=== PATIENT | male | born 1995 | race Caucasian/White ===

== ENCOUNTER 2017-07-07 21:58 | Emergency (ER) | payer MEDICAID, SELFPAY | END 2017-07-07 23:55 | disposition home or self-care (01) | PROVIDERS: Emergency Provider Emergency Medicine; Visit Provider Emergency Medicine | DX: K52.9 Noninfective gastroenteritis and colitis, unspecified (principal) | CPT/HCPCS: 74176; 80053; 82150; 83690; 85025; 87275; 87276; 96361; 96365; 96375; 99284; J2405 ==

== ENCOUNTER 2017-08-01 18:09 | Emergency (ER) | payer MEDICAID, SELFPAY ==
[2017-08-01 19:19] VITALS: BP 123/67; PULSE 72; RESP 20; TEMP 36.6; O2SAT 96; BMI 45.5
[2017-08-01 19:31] LABS: UTC Influenza A Antigen Negative (Negative); UTC Influenza B Antigen Negative (Negative)
--- NOTE | 2017-08-01 20:02 | HMH.EDUTC ---
[facility] [place] Clinical Impression: Influenza-like illness Disposition: Home, Self-Care Condition on Discharge: Good Instructions: DI for Influenza -- Adult Additional Instructions: * No sign of bacterial infection. Likely viral. Virus can take 7-14 days to run their course. This sounds like the flu but could be any number of upper respiratory viruses. False negative flu tests are possible. * You report you are an otherwise healthy individual. * Monitor Temp. Tylenol every 4 hours as needed no more then 5 times a day or 4000mg in 24 hours and/or ibuprofen every 6 hours as needed no more then 3200mg in 24 hours (as long as your primary care doctor has told you that it is ok to take both) for fever/aches/pain. ER if fever no less than 101 despite tylenol and ibuprofen * Encourage fluids, water, gatorade, powerade, pedialyte if /toddler/child * LOTS of rest * warm salt water gargles * warm fluids * sleep elevated * humidifier/vaporizer * You (or your child) are contagious until no fever, aches, chills x 24 hours without medication for symptoms * OTC cold/flu/sinus medication is ok but pick one. Do not take multiple different ones as they have similar ingredients and you can overdose on cold medication. IMMEDIATELY for new or worsening symptoms, improvement followed by suddenly feeling worse OR no noticeable improvement over the next 48-72 hours. 911 for difficulty breathing Forms: Work/School Release Time of Disposition: 20:21 Medical Decision Making Vital Signs: 08/01/17 19:19 Temperature 98 F Temperature Source Oral Pulse Rate [Right Brachial] 72 Respiratory Rate 20 Blood Pressure [Right Arm] 123/67 Blood Pressure Mean [Right Arm] 85 Blood Pressure Position [Right Arm] Sitting 02 Sat by Pulse Oximetry 96 Oxygen Delivery Method Room Air - Lab Data Lab results reviewed: Yes: I reviewed the patient's lab results. Lab Results 08/01/17 18:41: Influenza Type A Ag Negative, Influenza Type B Ag Negative - Benny Inquiry Pt receiving controlled substance: No [facility] [place] - General Stated complaint: sneezing, chills, cough Time Seen by Provider: 08/01/17 20:02 Mode of Arrival: Ambulatory Source of Information: Patient Limitations: No Limitations Description of Symptoms (Recalled from Triage Doc. by RN): C/O FLU-LIKE SYMPTOMS HEENT Symptoms (Recalled from RN notes): Yes (RUNNY NOSE) Resp Symptoms (Recalled from RN notes): Yes (COUGH, CONGESTION) Skin Symptoms (Recalled from RN notes): No MS Symptoms (Recalled from RN notes): Yes (BODYACHES) Functional Status (Recalled from RN notes): N/A - History of Present Illness Provider Complaint: c/o feeling feverish, bodyaches, chills, mild cough, sneezing. Started mild yesterday but worse today. Denies sore throat. being seen with same symptoms, negative flu. Daughter recently sick and mother in law too. Not sure of their diagnoses. Has not had flu vaccine. OTC sinus medication hasn't helped. - Related Data Allergies Allergy/AdvReac Type Severity Reaction Status Date / Time No Known Allergies Allergy Unverified 07/07/17 14:58 - Worker's Comp Is this a Worker's Comp case?: No [facility] History I have reviewed the patient's past medical history: Yes (denies PMHx) Medical History: Denies:: Cancer, Diabetes Mellitus Type 1, Diabetes Mellitus Type 2, Hypertension, MRSA Other Surgeries: Yes: No Previous Surgery Amputation: No Fractures: No - *Social History Smoking Status: Never smoker Alcohol Intake: never - Psychiatric History Expresses thoughts of harming self/others: None Suicide Plan Description: No Plan ROS Obtained: Yes Systems reviewed as appropriate & no additional complaints - Constitutional Constitutional: Reports body ache, Reports chills, Reports fatigue, Reports poor appetite (drinking well) - Eyes Eyes: Denies eye discharge, Denies eye pain - ENT Ears, Nose, Mouth, and Throat: Denies otalgia, Reports nasal congestion, R
[2017-08-01 21:02] VITALS: BP 123/67; PULSE 72; RESP 20; TEMP 36.6; O2SAT 96
== END 2017-08-01 21:03 | disposition home or self-care (01) ==
PROVIDERS: Emergency Provider Nurse Practitioner Family; Family Provider Internal Medicine Adolescent Medicine
DX: J10.1 Influenza due to other identified influenza virus with other respiratory manifestations (principal)
CPT/HCPCS: 87804; 99202

== ENCOUNTER 2017-08-05 18:13 | Emergency (ER) | payer MEDICAID, SELFPAY ==
[2017-08-05 19:41] VITALS: BP 142/80; PULSE 78; RESP 20; TEMP 36.6; O2SAT 100; BMI 44.9
[2017-08-05 19:48] LABS: UTC Influenza A Antigen Negative (Negative); UTC Influenza B Antigen Negative (Negative)
--- NOTE | 2017-08-05 20:21 | HMH.EDUTC ---
[facility] – [place] Disposition Clinical Impression: Influenza-like illness Disposition: Home, Self-Care Condition on Discharge: Good Instructions: DI for Influenza -- Adult Additional Instructions: * Expected flu symptoms and progression. now that your daughter has tested positive, confirms you likely have the flu as well * Continue lots of fluids * Continue to rest * Continue Theraflu since it helps * Seek treatment for ANY new or worsening symptoms or no noticeable improvements starting over the next 48-72 hours. * you are still contagious. No work. Referrals: Miguel Arguelles MD [Primary Care Provider] - (Immediately for new or worsening symptoms or better then suddenly worse again. Also follow up if no noticeable improvement over the next 48-72 hours. ) Forms: Work/School Release Time of Disposition: 20:35 Medical Decision Making Vital Signs: 08/05/17 19:41 Temperature 98 F Temperature Source Temporal Artery Scan Pulse Rate [Brachial] 78 Respiratory Rate 20 Blood Pressure [Right Arm] 142/80 Blood Pressure Mean [Right Arm] 100 Blood Pressure Source [Right Arm] Automatic Cuff Blood Pressure Position [Right Arm] Sitting 02 Sat by Pulse Oximetry 100 Oxygen Delivery Method Room Air - Lab Data Lab results reviewed: Yes: I reviewed the patient's lab results. Lab Results 08/05/17 19:37: Influenza Type A Ag Negative, Influenza Type B Ag Negative - Benny Inquiry Pt receiving controlled substance: No [facility] [place] HPI - General Stated complaint: Flu Time Seen by Provider: 08/05/17 20:21 Mode of Arrival: Ambulatory Source of Information: Patient Limitations: No Limitations Description of Symptoms (Recalled from Triage Doc. by RN): SEEN SAT WAS DX - FOR FLU. STILL FEELS BAD HEENT Symptoms (Recalled from RN notes): Yes Resp Symptoms (Recalled from RN notes): No Skin Symptoms (Recalled from RN notes): No MS Symptoms (Recalled from RN notes): No Functional Status (Recalled from RN notes): NA - History of Present Illness Provider Complaint: c/o persistant flu symptoms. No worse but doesn't feel better. Needing longer work excuse because not ready to return today. Seen on Sat for FLI that started that same day. Flu neg. DX FLI. Daughter has since tested positive for flu yesterday. Rhinorrhea resolved but still fatigue, cough, bodyaches, chills. Theraflu helping symptoms. [place] feverish today but didn't check temp. already feeling better. - Related Data Home Medications Medication Instructions Recorded Confirmed No Known Home Medications [No 08/05/17 08/05/17 Known Home Medications] Allergies Allergy/AdvReac Type Severity Reaction Status Date / Time No Known Allergies Allergy Verified 08/05/17 18:58 - Worker's Comp Is this a Worker's Comp case?: No [facility] History I have reviewed the patient's past medical history: Yes (denies PMHx) Medical History: Denies:: Cancer, Diabetes Mellitus Type 1, Diabetes Mellitus Type 2, Hypertension, MRSA Other Surgeries: Yes: No Previous Surgery Amputation: Yes Fractures: No - *Social History Smoking Status: Never smoker Alcohol Intake: never - Psychiatric History Expresses thoughts of harming self/others: None Suicide Plan Description: No Plan ROS Obtained: Yes Systems reviewed as appropriate & no additional complaints - Constitutional Constitutional: Reports as per HPI, Denies anorexia, Reports fatigue, Denies poor appetite, Reports other (eating and drinking well) - Eyes Eyes: Denies change in vision, Denies eye discharge, Denies eye pain - ENT Ears, Nose, Mouth, and Throat: Denies difficulty swallowing, Denies otalgia, Denies nasal congestion, Denies nasal discharge, Denies sore throat, Denies throat swelling - Cardiovascular Cardiovascular: Denies chest pain, Denies irregular heart rhythm - Respiratory Respiratory: No chest congestion, Yes non-productive cough, No dyspnea, No wheezing - Gastrointestinal Gastrointestingal: Denies: diarrhea,
== END 2017-08-05 20:45 | disposition home or self-care (01) ==
PROVIDERS: Emergency Provider Nurse Practitioner Family; Family Provider Internal Medicine Adolescent Medicine; PCP Internal Medicine Adolescent Medicine
DX: J10.1 Influenza due to other identified influenza virus with other respiratory manifestations (principal); Z20.828 Contact with and (suspected) exposure to other viral communicable diseases
CPT/HCPCS: 87804; 99202

== ENCOUNTER → 2018-01-01 09:48 | Outpatient (CLI) | payer MEDICAID, SELFPAY ==
[2018-01-01 14:06] LABS: Alanine Aminotransferase 42 U/L (12-78); Alkaline Phosphatase 123 U/L (46-116); Anion Gap 14.5 mEq/L (5-15); Aspartate Amino Transferase 22 U/L (15-37); Bilirubin,Total 0.8 mg/dL (0.2-1.0); Blood Urea Nitrogen 18 mg/dL (7-18); Calcium 9.7 mg/dL (8.5-10.1); Carbon Dioxide 28 mmol/L (21.0-32.0); Chloride 104 mmol/L (98-107); Chol/HDL Ratio 4.6 (1-3.5); Cholesterol 180 mg/dL (140-200); Creatinine,Serum 0.87 mg/dL (0.70-1.30); Estimated Glomerular Filt Rate 110 ml/min (>60); Free T4 (Free Thyroxine) 1.11 ng/dl (0.76-1.46); GFR (African American) 133 ML/MIN (>60); Glucose 86 mg/dL (74-106); HDL Cholesterol 39 mg/dL (27-67); LDL Cholesterol 129 mg/dL (0-130); Potassium 4.5 mmoL/L (3.5-5.1); Sodium 142 mmol/L (136-145); Thyroid Stimulating Hormone 1.75 uIU/ml (0.358-3.740); Triglycerides 58 mg/dL (30-200); VLDL Cholesterol 12 mg/dL (0-40)
[2018-01-01 14:33] LABS: Basophils # 0.1 K/mm3 (0-0.2); Basophils % 0.5 % (0.1-2.0); Eosinophils # 0.1 K/mm3 (0.0-0.4); Eosinophils % 0.6 % (0.1-12.0); Hematocrit 54.6 % (42.0-52.0); Lymphocytes # 2.3 K/mm3 (0.7-4.5); Lymphocytes % 23.6 K/mm3 (10-50); Mean Corpuscular HGB Conc 31.2 g/dL (31.8-35.4); Mean Corpuscular Hemoglobin 29.3 pg (27.0-31.2); Mean Corpuscular Volume 94.1 fl (80-94); Mean Platelet Volume 8.7 fl (7.4-10.4); Monocytes # 0.4 K/mm3 (0.1-1.0); Monocytes % 4.4 % (1.7-9.3); Neutrophils % 70.9 % (37.0-80.0); Platelet Count 301 K/mm3 (142-424); Red Cell Distribution Width 13.5 % (11.5-17.5); White Blood Count 9.9 K/mm3 (4.8-10.8)
[2018-01-01 14:59] LABS: Hemoglobin A1C 5.4 % (0.0-7.0)
[2018-01-02 17:00] LABS: HSV 1 IgG, Type Spec 1.27 index (0.00-0.90); HSV 2 IgG, Type Spec <0.91 index (0.00-0.90); Vitamin D 25 Hydroxy 31.6 ng/mL (30.0-100.0)
== END ==
PROVIDERS: Visit Provider Nurse Practitioner Family
DX: R53.83 Other fatigue (principal); Z79.899 Other long term (current) drug therapy
CPT/HCPCS: 80053; 80061; 82652; 83036; 84439; 84443; 85025; 86695; 86790

== ENCOUNTER → 2018-06-23 10:02 | Outpatient (CLI) | payer OTHER, MEDICAID, SELFPAY ==
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
== END ==
PROVIDERS: PCP Nurse Practitioner Family; Visit Provider Orthopaedic Surgery
DX: M25.561 Pain in right knee (principal)
CPT/HCPCS: 73721

== ENCOUNTER → 2018-07-21 12:19 | Outpatient (CLI) | payer MEDICAID, SELFPAY ==
[2018-07-21 12:53] LABS: Basophils # 0.1 K/mm3 (0-0.2); Eosinophils # 0.1 K/mm3 (0.0-0.4); Eosinophils % 1.1 % (0.1-12.0); Hematocrit 45.8 % (42.0-52.0); Hemoglobin 14.6 g/dL (14.1-18.0); Lymphocytes # 2.4 K/mm3 (0.7-4.5); Lymphocytes % 29.4 % (10-50); Mean Corpuscular HGB Conc 31.9 g/dL (31.8-35.4); Mean Corpuscular Hemoglobin 30.3 pg (27.0-31.2); Mean Corpuscular Volume 95.1 fl (80-94); Mean Platelet Volume 7.4 fl (7.4-10.4); Monocytes # 0.4 K/mm3 (0.1-1.0); Monocytes % 4.9 % (1.7-9.3); Neutrophils # 5.1 K/mm3 (1.8-7.8); Neutrophils % 63.6 % (37.0-80.0); Platelet Count 296 K/mm3 (142-424); Red Blood Count 4.82 M/mm3 (4.60-6.20); White Blood Count 8.1 K/mm3 (4.8-10.8)
[2018-07-21 12:56] LABS: INR 0.97 (0.9-1.1)
[2018-07-21 14:29] LABS: Anion Gap 13.4 mEq/L (5-15); Blood Urea Nitrogen 16 mg/dL (7-18); Calcium 8.7 mg/dL (8.5-10.1); Carbon Dioxide 30 mmol/L (21.0-32.0); Chloride 103 mmol/L (98-107); Creatinine,Serum 0.91 mg/dL (0.70-1.30); Estimated Glomerular Filt Rate 103 ml/min (>60); GFR (African American) 125 ML/MIN (>60); Glucose 93 mg/dL (74-106); Potassium 4.4 mmoL/L (3.5-5.1); Sodium 142 mmol/L (136-145)
== END ==
PROVIDERS: Visit Provider Orthopaedic Surgery
DX: Z01.818 Encounter for other preprocedural examination (principal); S83.271A Complex tear of lateral meniscus, current injury, right knee, initial encounter
CPT/HCPCS: 36415; 80048; 85025; 85610

== ENCOUNTER 2018-07-23 10:30 | Outpatient (RCR) | payer MEDICAID, OTHER, SELFPAY ==
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
== END 2018-07-23 10:35 | disposition home or self-care (01) ==
LOC: PT 10:30
PROVIDERS: Visit Provider Nurse Practitioner Family
DX: M54.6 Pain in thoracic spine (principal)
CPT/HCPCS: 97010; 97014; 97110; 97140; 97163; G0283

== ENCOUNTER → 2018-07-30 13:42 | Outpatient (CLI) | payer MEDICAID, SELFPAY | PROVIDERS: Visit Provider Nurse Practitioner Family | DX: R36.9 Urethral discharge, unspecified (principal) | CPT/HCPCS: 87086 ==

== ENCOUNTER 2018-09-09 15:30 | Outpatient (RCR) | payer MEDICAID, SELFPAY ==
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
== END 2018-09-09 15:35 | disposition home or self-care (01) ==
LOC: PT 15:30
PROVIDERS: Visit Provider Orthopaedic Surgery
DX: S83.271D Complex tear of lateral meniscus, current injury, right knee, subsequent encounter (principal)
CPT/HCPCS: 97010; 97014; 97016; 97110; 97163; G0283

== ENCOUNTER → 2018-11-18 12:29 | Outpatient (CLI) | payer MEDICAID, SELFPAY | PROVIDERS: PCP Nurse Practitioner Family; Visit Provider Internal Medicine Cardiovascular Disease | DX: R06.02 Shortness of breath (principal); R42 Dizziness and giddiness; R94.31 Abnormal electrocardiogram [ECG] [EKG] | CPT/HCPCS: 93225 ==

== ENCOUNTER → 2018-11-22 13:44 | Outpatient (CLI) | payer MEDICAID, SELFPAY ==
--- NOTE | 2018-11-22 13:45 | CA_ITS ---
PROCEDURE: 2-D M-mode and color Doppler study INDICATIONS FOR THE TEST: Chest pain COPD Heart Murmur Tobacco Smoking Palpitations Fatigue+ Syncope Edema Hypertension Diabetes Mellitus Rheumatic Fever SOB QUAN+Obesity Hyperlipidemia Family History HD Additional History GERD PATIENT INFORMATION HEIGHT: 72 WEIGHT:347 GENDER: Male B/P:120/80 2-D/M-MODE INTERPRETATION: 2-D MEASUREMENTS OBSERVED VALUES IN CMS Right Ventricular Dimension (RVDd) 2.7 Interventricular Septum (Thickness)(IVsd) 1.1 Left Ventricular Internal Dimensions(LVIDd) 5.4 Left Ventricular Posterior Wall (Thickness)(LVPWd) 1.1 Aortic Root 3.0 Aortic Cusp Separation Left Atrial Dimensions (LAD) 4.0 2D 1. Left atrium is upper limit of the normal size, left ventricle is normal size, left ventricle wall thickness is upper limit of the normal, visually estimated ejection fraction 55% with no regional wall motion abnormality. 2. The right atrium and right ventricle are mildly enlarged with normal contractility. 3. The aortic, mitral and tricuspid valvular grossly normal. 4. The pulmonic valve is poorly visualized. 5. No significant pericardial effusion noted. DOPPLER INTERROGATION: Doppler interrogation of the aortic, mitral and tricuspid valvular presence of mild mitral and tricuspid regurgitation, tricuspid regurgitation jet velocity is inadequate for calculation of the right ventricular systolic pressure, diastolic parameters are within normal range. CONCLUSION: 1. Normal left ventricular size, preserved left ventricular systolic function, visually estimated ejection fraction 55% with no regional wall motion abnormality. Diastolic parameters are within normal range. 2. Mildly enlarged right-sided chambers, contractility of the right ventricle is normal. 3. Mild mitral and tricuspid regurgitation 4. No significant pericardial effusion noted.
== END ==
PROVIDERS: PCP Nurse Practitioner Family; Visit Provider Internal Medicine Cardiovascular Disease
DX: R06.02 Shortness of breath (principal); R42 Dizziness and giddiness; R94.31 Abnormal electrocardiogram [ECG] [EKG]
CPT/HCPCS: 93306

== ENCOUNTER → 2018-11-30 18:57 | Outpatient (CLI) | payer MEDICAID, SELFPAY | PROVIDERS: PCP Nurse Practitioner Family; Visit Provider Internal Medicine Cardiovascular Disease | DX: R42 Dizziness and giddiness (principal); R06.02 Shortness of breath; R94.31 Abnormal electrocardiogram [ECG] [EKG] | CPT/HCPCS: 95806 ==

== ENCOUNTER → 2018-12-02 11:06 | Outpatient (CLI) | payer MEDICAID, SELFPAY ==
[2018-12-02 12:46] LABS: Blood Urea Nitrogen 9 mg/dL (7-18); Calcium 8.4 mg/dL (8.5-10.1); Carbon Dioxide 29 mmol/L (21.0-32.0); Chloride 105 mmol/L (98-107); Creatinine,Serum 0.85 mg/dL (0.70-1.30); Estimated Glomerular Filt Rate 112 ml/min (>60); GFR (African American) 135 ML/MIN (>60); Glucose 86 mg/dL (74-106); Sodium 142 mmol/L (136-145)
== END ==
PROVIDERS: Visit Provider Internal Medicine Cardiovascular Disease
DX: R06.02 Shortness of breath (principal); R42 Dizziness and giddiness
CPT/HCPCS: 36415; 80048

== ENCOUNTER 2018-12-18 23:59 | Emergency (ER) | payer MEDICAID, SELFPAY ==
[2018-12-19] VITALS: BP 128/62; PULSE 98; RESP 20; TEMP 37.1; O2SAT 98; BMI 46.7
--- NOTE | 2018-12-19 00:10 | CT_ITS ---
CT abdomen pelvis wo con CLINICAL INDICATION: Left flank pain with nausea ITS.REASON: pain ORDERING PHYSICIAN: Herson Munoz MD PATIENT AGE: 23 years COMPARISON: 07/07/2017 TECHNIQUE: Axial images obtained with sagittal and coronal reformats. All CT scans at the facility use one or more dose reduction, viz: automated exposure control, ma/kV adjustment per patient size (including targeted exams where dose is matched to indication, i.e. head), or iterative reconstruction technique. PROCEDURE: Oral Contrast: None IV Contrast: None . FINDINGS: Lower thorax: No acute finding The liver, gallbladder, spleen, adrenal glands, pancreas, and kidneys have an unremarkable unenhanced appearance. No evidence of appendicitis or diverticulitis. No intestinal obstruction or free air. There is mild amount of retained colonic feces. There is mild gastric distention with ingested material. No acute bony anomalies. IMPRESSION: No acute abdominal or pelvic findings
--- NOTE | 2018-12-19 00:15 | HMH.EDGENADL ---
ED Disposition Clinical Impression: Acute thoracic myofascial strain Disposition: Home, Self-Care Condition on Discharge: Good Instructions: DI for Acute Pain -- Adult, Thoracic Back Pain Prescriptions: predniSONE [Prednisone 50mg Tab] 50 mg PO DAILY 5 Days #5 tab Tizanidine HCl 4 mg PO TID 4 Days #12 cap Referrals: Justine Cary APRN [Primary Care Provider] - Time of Disposition: 01:58 - Critical Care Critical Care Time: No Attestation: On 12/18/18, the high probability of a clinically significant, sudden or life threatening deterioration of the following system(s) required my full and direct attention, intervention and personal management. The time I documented below is in addition to time spent performing reported procedures but includes the following listed in this critical care notation. Medical Decision Making - Medical Records Medical records reviewed: Yes: I reviewed the patient's medical records. - Benny Inquiry Pt receiving controlled substance: No Benny was queried for this patient: No Vital Signs: 12/19/18 00:00 Temperature 98.7 F Temperature Source Oral Pulse Rate [Right Brachial] 98 H Respiratory Rate 20 Blood Pressure [Right Arm] 128/62 Blood Pressure Mean [Right Arm] 84 Blood Pressure Source [Right Arm] Automatic Cuff Blood Pressure Position [Right Arm] Sitting 02 Sat by Pulse Oximetry 98 Oxygen Delivery Method Room Air - Lab Data Lab results reviewed: Yes: I reviewed the patient's lab results. Lab Results 12/19/18 00:04: Urine Color Dk yellow, Urine Appearance Sl cloudy, Urine pH 6.0, Ur Specific [place] >= 1.030, Urine Protein 1+, Urine Glucose (UA) Negative, Urine Ketones Trace, Urine Blood Negative, Urine Nitrate Negative, Urine Bilirubin 1+ A, Urine Urobilinogen 1.0, Ur Leukocyte Esterase Negative, Urine WBC 10-20, Amorphous Sediment 2+, Urine Mucus 4+ 12/19/18 00:20: WBC 14.9 H, RBC 4.88, Hgb 15.3, Hct 44.3, MCV 90.8, MCH 31.2, MCHC 34.4, RDW 13.3, Plt Count 324, MPV 7.2 L, Neut % (Auto) 74.1, Lymph % (Auto) 20.8, [place] % (Auto) 4.1, Eos % (Auto) 0.4, Baso % (Auto) 0.7, Neut # (Auto) 11.1 H, Lymph # (Auto) 3.1, [place] # (Auto) 0.6, Eos # (Auto) 0.1, Baso # (Auto) 0.1 12/19/18 00:20: Sodium 142, Potassium 3.6, Chloride 103, Carbon Dioxide 26, Anion Gap 16.6 H, BUN 15, Creatinine 1.24, Estimated Creat Clear 102, Estimated GFR 72, Est GFR ( Amer) 87, Glucose 80, Calcium 9.0, Total Bilirubin 1.0, AST 19, ALT 37, Alkaline Phosphatase 117 H, Total Protein 7.6, Albumin 3.8, Globulin 3.8 H, Albumin/Globulin Ratio 1.0 L, Amylase 39, Lipase 137 Result diagrams: 12/19/18 00:20 12/19/18 00:20 Orders (Tests/Meds): ED MEDICATIONS Generic Name Dose Route Start Last Admin Trade Name Freq PRN Reason Stop Dose Admin Sodium Chloride 1,000 mls @ 999 mls/hr 12/19/18 00:15 12/19/18 00:16 Sod Chlor 0.9% 1000ml Bag IV 12/19/18 01:15 999 mls/hr .[id number] DANIELA Administration Discontinued Medications Generic Name Dose Route Start Last Admin Trade Name Freq PRN Reason Stop Dose Admin Ketorolac Tromethamine 30 mg 12/19/18 00:10 12/19/18 00:16 Toradol 30mg/Ml Vial IV 12/19/18 00:11 30 mg ONCE ONE Administration Ondansetron HCl 4 mg 12/19/18 00:10 12/19/18 00:16 Zofran 4mg/2ml Vial IV 12/19/18 00:11 4 mg ONCE ONE Administration ORDERS Category Date Time Status CT abdomen pelvis wo con Stat Cat Scan 12/19/18 00:10 Taken Urine Culture Stat Micro 12/19/18 00:04 Received General Adult HPI - General Chief complaint: PAIN Stated complaint: Pain in lower back left side Time Seen by Provider: 12/19/18 00:15 Mode of Arrival: Ambulatory Source of Information: Patient Limitations: No Limitations Description of Symptoms (Recalled from ER Triage Doc. by RN): PT c/o flank pain that started about 8pm tonight. No other symptoms reported at this time. - Related Data Home Medications Medication Instructions Recorded Confirmed raNITIdine HCl [Raniti
[2018-12-19 00:18] LABS: Microscopic, Urine URINE MICROSCOPIC (MICROSCOPIC)
--- NOTE | 2018-12-19 00:19 | ED_ITS ---
ED Disposition Clinical Impression: Acute thoracic myofascial strain Disposition: Home, Self-Care Condition on Discharge: Good Instructions: DI for Acute Pain -- Adult, Thoracic Back Pain Prescriptions: predniSONE [Prednisone 50mg Tab] 50 mg PO DAILY 5 Days #5 tab Tizanidine HCl 4 mg PO TID 4 Days #12 cap Referrals: Justine Cary APRN [Primary Care Provider] - Time of Disposition: 01:58 - Critical Care Critical Care Time: No Attestation: On 12/18/18, the high probability of a clinically significant, sudden or life threatening deterioration of the following system(s) required my full and direct attention, intervention and personal management. The time I documented below is in addition to time spent performing reported procedures but includes the following listed in this critical care notation. Medical Decision Making - Medical Records Medical records reviewed: Yes: I reviewed the patient's medical records. - Benny Inquiry Pt receiving controlled substance: No Benny was queried for this patient: No Vital Signs: 12/19/18 00:00 Temperature 98.7 F Temperature Source Oral Pulse Rate [Right Brachial] 98 H Respiratory Rate 20 Blood Pressure [Right Arm] 128/62 Blood Pressure Mean [Right Arm] 84 Blood Pressure Source [Right Arm] Automatic Cuff Blood Pressure Position [Right Arm] Sitting 02 Sat by Pulse Oximetry 98 Oxygen Delivery Method Room Air - Lab Data Lab results reviewed: Yes: I reviewed the patient's lab results. Lab Results 12/19/18 00:04: Urine Color Dk yellow, Urine Appearance Sl cloudy, Urine pH 6.0, Ur Specific [place] >= 1.030, Urine Protein 1+, Urine Glucose (UA) Negative, Urine Ketones Trace, Urine Blood Negative, Urine Nitrate Negative, Urine Bilirubin 1+ A, Urine Urobilinogen 1.0, Ur Leukocyte Esterase Negative, Urine WBC 10-20, Amorphous Sediment 2+, Urine Mucus 4+ 12/19/18 00:20: WBC 14.9 H, RBC 4.88, Hgb 15.3, Hct 44.3, MCV 90.8, MCH 31.2, MCHC 34.4, RDW 13.3, Plt Count 324, MPV 7.2 L, Neut % (Auto) 74.1, Lymph % (Auto) 20.8, [place] % (Auto) 4.1, Eos % (Auto) 0.4, Baso % (Auto) 0.7, Neut # (Auto) 11.1 H, Lymph # (Auto) 3.1, [place] # (Auto) 0.6, Eos # (Auto) 0.1, Baso # (Auto) 0.1 12/19/18 00:20: Sodium 142, Potassium 3.6, Chloride 103, Carbon Dioxide 26, Anion Gap 16.6 H, BUN 15, Creatinine 1.24, Estimated Creat Clear 102, Estimated GFR 72, Est GFR ( Amer) 87, Glucose 80, Calcium 9.0, Total Bilirubin 1.0, AST 19, ALT 37, Alkaline Phosphatase 117 H, Total Protein 7.6, Albumin 3.8, Globulin 3.8 H, Albumin/Globulin Ratio 1.0 L, Amylase 39, Lipase 137 Result diagrams: 12/19/18 00:20 12/19/18 00:20 Orders (Tests/Meds): ED MEDICATIONS Generic Name Dose Route Start Last Admin Trade Name Freq PRN Reason Stop Dose Admin Sodium Chloride 1,000 mls @ 999 mls/hr 12/19/18 00:15 12/19/18 00:16 Sod Chlor 0.9% 1000ml Bag IV 12/19/18 01:15 999 mls/hr .Q1H1M DANIELA Administration Discontinued Medications Generic Name Dose Route Start Last Admin Trade Name Freq PRN Reason Stop Dose Admin Ketorolac Tromethamine 30 mg 12/19/18 00:10 12/19/18 00:16 Toradol 30mg/Ml Vial IV 12/19/18 00:11 30 mg ONCE ONE Administration Ondansetron HCl 4 mg 12/19/18 00:10 12/19/18 00:1
[2018-12-19 00:20] LABS: Appearance,Urine SL CLOUDY (Clear); Blood, Urine Negative (Negative); Color,Urine DK YELLOW (Yellow); Glucose,Urine (UA) Negative (Negative); Ketones,Urine TRACE (Negative); Leukocyte Esterase,Urine Negative (Negative); Nitrate,Urine Negative (Negative); Protein,Urine 1+ (Negative); Specific Gravity, Urine >= 1.030 (1.005-1.030)
[2018-12-19 00:22] LABS: Amorphous Sediment,Urine 2+ /lpf; Bilirubin,Urine 1+ (Negative); Mucus,Urine 4+ /lpf
[2018-12-19 00:30] LABS: Basophils # 0.1 K/mm3 (0-0.2); Basophils % 0.7 % (0.1-2.0); Eosinophils # 0.1 K/mm3 (0.0-0.4); Eosinophils % 0.4 % (0.1-12.0); Hematocrit 44.3 % (42.0-52.0); Hemoglobin 15.3 g/dL (14.1-18.0); Lymphocytes # 3.1 K/mm3 (0.7-4.5); Lymphocytes % 20.8 % (10-50); Mean Corpuscular HGB Conc 34.4 g/dL (31.8-35.4); Mean Corpuscular Hemoglobin 31.2 pg (27.0-31.2); Mean Corpuscular Volume 90.8 fl (80-94); Mean Platelet Volume 7.2 fl (7.4-10.4); Monocytes # 0.6 K/mm3 (0.1-1.0); Monocytes % 4.1 % (1.7-9.3); Neutrophils # 11.1 K/mm3 (1.8-7.8); Neutrophils % 74.1 % (37.0-80.0); Platelet Count 324 K/mm3 (142-424); Red Blood Count 4.88 M/mm3 (4.60-6.20); Red Cell Distribution Width 13.3 % (11.5-17.5); White Blood Count 14.9 K/mm3 (4.8-10.8)
[2018-12-19 00:47] LABS: Alanine Aminotransferase 37 U/L (12-78); Albumin Level 3.8 gm/dL (3.4-5.0); Alkaline Phosphatase 117 U/L (46-116); Amylase 39 U/L (25-115); Anion Gap 16.6 mEq/L (5-15); Aspartate Amino Transferase 19 U/L (15-37); Blood Urea Nitrogen 15 mg/dL (7-18); Carbon Dioxide 26 mmol/L (21.0-32.0); Chloride 103 mmol/L (98-107); Creatinine Clearance Estimated 102 mL/min (50-200); Creatinine,Serum 1.24 mg/dL (0.70-1.30); Estimated Glomerular Filt Rate 72 ml/min (>60); GFR (African American) 87 ML/MIN (>60); Globulin 3.8 gm/dl (1.3-3.2); Glucose 80 mg/dL (74-106); Lipase 137 u/L (73-393); Potassium 3.6 mmoL/L (3.5-5.1); Sodium 142 mmol/L (136-145); Total Protein,Serum 7.6 gm/dL (6.4-8.2)
[2018-12-19 02:13] VITALS: BP 132/70; PULSE 82; RESP 16; TEMP 37.1; O2SAT 98
== END 2018-12-19 02:17 | disposition home or self-care (01) ==
PROVIDERS: Emergency Provider Emergency Medicine; PCP Nurse Practitioner Family
DX: M54.6 Pain in thoracic spine (principal); K21.9 Gastro-esophageal reflux disease without esophagitis; R21 Rash and other nonspecific skin eruption
CPT/HCPCS: 74176; 80053; 81001; 82150; 83690; 85025; 87077; 87086; 96365; 96375; 99283; J2405

== ENCOUNTER 2019-12-17 23:45 | Emergency (ER) | payer OTHER, SELFPAY ==
[2019-12-17 23:47] VITALS: BP 102/44; BP 113/57; BP 94/41; PULSE 80; PULSE 88; PULSE 94
[2019-12-18 00:09] VITALS: BP 95/62; PULSE 85; RESP 16; TEMP 37.2; O2SAT 96; BMI 51.6
--- NOTE | 2019-12-18 00:15 | CT_ITS ---
PROCEDURE: CT HEAD/BRAIN WO CON CLINICAL INDICATION: dizzy Dizziness and headache COMPARISON: HEADWO CT head/brain wo con from 11/09/2018 TECHNIQUE: Axial images obtained. All CT scans at the facility use one or more dose reduction, viz: automated exposure control, ma/kV adjustment per patient size (including targeted exams where dose is matched to indication, i.e. head), or iterative reconstruction technique. FINDINGS: No midline shift, mass effect, intracranial hemorrhage, hydrocephalus, or extra-axial fluid collection is evident. The calvarium has an unremarkable appearance. No mastoid effusion. No sinus air-fluid level. IMPRESSION: No acute intracranial finding Dictated by: Jaycob Benitez MD 12/18/2019 06:53 Electronically signed by Jaycob Benitez MD in [place] 12/18/2019 06:53
--- NOTE | 2019-12-18 00:15 | CT_ITS ---
PROCEDURE: CT SINUS WO CON CLINICAL HISTORY: dizzy Dizziness, headache COMPARISON: No exams were available for comparison TECHNIQUE: Axial images obtained with sagittal and coronal reformats. All CT scans at the facility use one or more dose reduction, viz: automated exposure control, ma/kV adjustment per patient size (including targeted exams where dose is matched to indication, i.e. head), or iterative reconstruction technique. FINDINGS: Bones: Unremarkable. No fracture, lytic, or blastic changes evident. Extracranial soft tissues: Unremarkable. Sinuses: Unremarkable. No air-fluid levels or significant mucosal thickening. Orbits: Unremarkable. Other: No other pertinent findings. IMPRESSION: Negative CT sinuses Dictated by: Jaycob Benitez MD 12/18/2019 06:55 Electronically signed by Jaycob Benitez MD in [place] 12/18/2019 06:55
[2019-12-18 00:34] LABS: Basophils # 0.1 K/mm3 (0-0.2); Basophils % 0.7 % (0.1-2.0); Eosinophils # 0.1 K/mm3 (0.0-0.4); Eosinophils % 0.4 % (0.1-12.0); Hematocrit 46.1 % (42.0-52.0); Hemoglobin 15.3 g/dL (14.1-18.0); Lymphocytes # 3.2 K/mm3 (0.7-4.5); Lymphocytes % 24.5 % (10-50); Mean Corpuscular HGB Conc 33.2 g/dL (31.8-35.4); Mean Corpuscular Hemoglobin 30.9 pg (27.0-31.2); Mean Corpuscular Volume 93.2 fl (80-94); Mean Platelet Volume 7.5 fl (7.4-10.4); Monocytes # 0.7 K/mm3 (0.1-1.0); Monocytes % 5.7 % (1.7-9.3); Neutrophils # 8.9 K/mm3 (1.8-7.8); Neutrophils % 68.7 % (37.0-80.0); Platelet Count 342 K/mm3 (142-424); Red Blood Count 4.94 M/mm3 (4.60-6.20); Red Cell Distribution Width 13.8 % (11.5-17.5)
[2019-12-18 00:41] LABS: Alanine Aminotransferase 24 U/L (12-78); Albumin Level 4.4 g/dl (3.5-5.0); Albumin/Globulin Ratio 1.2 (1.1-1.8); Alkaline Phosphatase 96 U/L (38-126); Anion Gap 10.9 mEq/L (5-15); Aspartate Amino Transferase 24 U/L (17-59); Bilirubin,Total 0.5 mg/dl (0.2-1.3); Blood Urea Nitrogen 18 mg/dl (9-20); Calcium 9.4 mg/dl (8.4-10.2); Carbon Dioxide 29 mmol/L (22.0-30.0); Chloride 104 mmol/L (98-107); Creatinine Clearance Estimated 139 mL/min (50-200); Estimated Glomerular Filt Rate 104 ml/min (>60); GFR (African American) 125 ML/MIN (>60); Globulin 3.6 g/dL (1.3-3.2); Glucose 83 mg/dl (74-100); Potassium 3.9 mmoL/L (3.5-5.1); Sodium 140 mmol/L (136-145)
[2019-12-18 00:46] LABS: C-Reactive Protein 8.3 mg/L (0-4)
[2019-12-18 00:52] LABS: Coronavirus 19 IgG Antibody Positive (Negative); Coronavirus 19 IgM Antibody Negative (Negative)
[2019-12-18 00:58] LABS: Erythrocyte Sedimentation Rate 16 mm/hr (0-15)
--- NOTE | 2019-12-18 00:59 | HMH.EDDIZZ ---
ED Disposition Clinical Impression: COVID-19 virus IgG antibody detected Benign paroxysmal positional vertigo Qualifiers: Laterality: bilateral Qualified Code(s): H81.13 - Benign paroxysmal vertigo, bilateral Acute serous otitis media Qualifiers: Laterality: bilateral Recurrence: not specified as recurrent Qualified Code(s): H65.03 - Acute serous otitis media, bilateral Disposition: Home, Self-Care Condition on Discharge: Good Instructions: Dizziness, Nonvertigo Additional Instructions: see pcp for follow up Referrals: Miguel Moreau MD [Primary Care Provider] - Forms: Work/School Release - Critical Care Critical Care Time: No Attestation: On 12/17/19, the high probability of a clinically significant, sudden or life threatening deterioration of the following system(s) required my full and direct attention, intervention and personal management. The time I documented below is in addition to time spent performing reported procedures but includes the following listed in this critical care notation. Medical Decision Making - Medical Records Medical records reviewed: Yes: I reviewed the patient's medical records. - Benny Inquiry Pt receiving controlled substance: No Vital Signs: 12/17/19 23:47 12/18/19 00:09 Temperature 98.9 F Temperature Source Oral Pulse Rate [Orthostatic Lying Right] 88 Pulse Rate [Orthostatic Sitting Right] 80 Pulse Rate [Orthostatic Standing Right] 94 H Pulse Rate [Right] 85 Respiratory Rate 16 Blood Pressure [Left Arm] 95/62 L Blood Pressure [Orthostatic Lying Left Arm] 94/41 L Blood Pressure [Orthostatic Sitting Left Arm] 113/57 L Blood Pressure [Orthostatic Standing Left Arm] 102/44 L Blood Pressure Mean [Left Arm] 73 Blood Pressure Source [Left Arm] Automatic Cuff Blood Pressure Position [Left Arm] Sitting 02 Sat by Pulse Oximetry 96 Oxygen Delivery Method Room Air - Lab Data Lab results reviewed: Yes: I reviewed the patient's lab results. Lab Results 12/18/19 00:23: WBC 13.0 H, RBC 4.94, Hgb 15.3, Hct 46.1, MCV 93.2, MCH 30.9, MCHC 33.2, RDW 13.8, Plt Count 342, MPV 7.5, Neut % (Auto) 68.7, Lymph % (Auto) 24.5, [place] % (Auto) 5.7, Eos % (Auto) 0.4, Baso % (Auto) 0.7, Neut # (Auto) 8.9 H, Lymph # (Auto) 3.2, [place] # (Auto) 0.7, Eos # (Auto) 0.1, Baso # (Auto) 0.1, ESR 16 H 12/18/19 00:23: Sodium 140, Potassium 3.9, Chloride 104, Carbon Dioxide 29, Anion Gap 10.9, BUN 18, Creatinine 0.90, Estimated Creat Clear 139, Estimated GFR 104, Est GFR ( Amer) 125, Glucose 83, Calcium 9.4, Total Bilirubin 0.5, AST 24, ALT 24, Alkaline Phosphatase 96, C-Reactive Protein 8.3 H, Total Protein 8.0, Albumin 4.4, Globulin 3.6 H, Albumin/Globulin Ratio 1.2 12/18/19 00:23: SARS-CoV-2 IgG Ab (Rapid) Positive A, SARS-CoV-2 IgM Ab (Rapid) Negative Result diagrams: 12/18/19 00:23 12/18/19 00:23 Orders (Tests/Meds): ED MEDICATIONS Generic Name Dose Route Start Last Admin Trade Name Freq PRN Reason Stop Dose Admin Sodium Chloride 1,000 mls @ 999 mls/hr 12/18/19 00:15 12/18/19 00:33 Sod Chlor 0.9% 1000ml Bag IV 12/18/19 01:15 999 mls/hr .Q1H1M DANIELA Administration Discontinued Medications Generic Name Dose Route Start Last Admin Trade Name Freq PRN Reason Stop Dose Admin Methylprednisolone Sodium Succinate 125 mg 12/18/19 00:15 12/18/19 00:33 Solu-Medrol 125mg/2ml Vial IV 12/18/19 00:16 125 mg ONCE ONE Administration ORDERS Category Date Time Status CT head/brain wo con Stat Cat Scan 12/18/19 00:[address] sinus wo con Stat Cat Scan 12/18/19 00:15 Taken - CT Data CT Scan: Head, Sinus Time Received: 01:[address] Reviewed: Yes: I have viewed the radiologist's interpretation Preliminary Findings: Normal/NAD - Reevaluation(s) Time: 01:28 Reevaluation #1: stable Dizzy HPI - General Chief Complaint: Dizziness Stated Complaint: Weak,headache and light headed Time Seen by Provider: 12/18/19 00:00 Mode of Arrival: Am
[2019-12-18 01:31] VITALS: BP 105/47; PULSE 81; RESP 16; TEMP 37.1; O2SAT 98
== END 2019-12-18 01:33 | disposition home or self-care (01) ==
PROVIDERS: Emergency Provider Emergency Medicine; PCP Family Medicine
DX: H65.03 Acute serous otitis media, bilateral (principal); H81.13 Benign paroxysmal vertigo, bilateral; Z01.84 Encounter for antibody response examination; K21.9 Gastro-esophageal reflux disease without esophagitis
CPT/HCPCS: 70450; 70486; 80053; 85025; 85651; 86140; 86328; 96365; 96375; 99283

== ENCOUNTER → 2019-12-19 14:27 | Outpatient (CLI) | payer OTHER, SELFPAY ==
[2019-12-21 13:49] LABS: Covid-19 Nasal PCR Sendout Lex NOT DETECTED
== END ==
PROVIDERS: PCP Nurse Practitioner Family; Visit Provider Nurse Practitioner Family
DX: Z03.818 Encounter for observation for suspected exposure to other biological agents ruled out (principal)
CPT/HCPCS: U0004

== ENCOUNTER 2020-02-22 00:03 | Emergency (ER) | payer OTHER, SELFPAY ==
[2020-02-22 00:10] VITALS: BP 167/81; PULSE 104; RESP 18; TEMP 37.1; O2SAT 97; BMI 52.7
--- NOTE | 2020-02-22 00:24 | HMH.EDGENADL ---
ED Disposition Clinical Impression: Viral upper respiratory infection Disposition: Home, Self-Care Condition on Discharge: Good Instructions: DI for Viral Upper Respiratory Infection -- Adult Additional Instructions: May continue to use DayQuil and NyQuil. Follow-up with primary care provider if not improved in 4 to 5 days. Additional instructions for UPPER RESPIRATORY INFECTION: See your physician if not improving in 3-4 days or if worsening. Rest and drink plenty of fluids. Return immediately if you have an uncontrollable fever greater than 104 degrees, difficulty breathing or shortness of breath, persistent vomiting, or inability to swallow. Referrals: Loretta Alvarez APRN [Primary Care Provider] - - Critical Care Critical Care Time: No Attestation: On 02/22/20, the high probability of a clinically significant, sudden or life threatening deterioration of the following system(s) required my full and direct attention, intervention and personal management. The time I documented below is in addition to time spent performing reported procedures but includes the following listed in this critical care notation. Medical Decision Making - Medical Records Medical records reviewed: Yes: I reviewed the patient's medical records. - Benny Inquiry Pt receiving controlled substance: No Vital Signs: 02/22/20 00:10 02/22/20 00:28 02/22/20 00:58 Temperature 98.8 F 98.8 F Temperature Source Oral Oral Pulse Rate 74 Pulse Rate [Right] 104 H 94 H Respiratory Rate 18 18 18 Blood Pressure 137/80 Blood Pressure [Right Arm] 167/81 H 126/91 H Blood Pressure Mean [Right Arm] 109 102 Blood Pressure Source Automatic Cuff Blood Pressure Source [Right Arm] Automatic Cuff Blood Pressure Position Sitting Blood Pressure Position [Right Arm] Sitting 02 Sat by Pulse Oximetry 97 100 Oxygen Delivery Method Room Air Room Air Room Air - Lab Data Lab results reviewed: Yes: I reviewed the patient's lab results. Lab Results 02/22/20 00:11: Influenza Type A Ag Negative, Influenza Type B Ag Negative 02/22/20 00:11: Group A Strep Rapid Negative Orders (Tests/Meds): ORDERS Category Date Time Status Chest XR 2 view (NOT portable) [XR chest 2V] Stat Exams 02/22/20 00:30 Taken Strep Screen Confirmation Stat Micro 02/22/20 00:11 Received - Radiology Data #1 Image(s): Chest Image Reviewed: Yes I reviewed the patient's radiology image Preliminary Findings: Normal/NAD General Adult HPI - General Chief complaint: Shortness of Breath/Dyspnea Stated complaint: Cough and sore throat Time Seen by Provider: 02/22/20 00:24 Mode of Arrival: Ambulatory Limitations: No Limitations Description of Symptoms (Recalled from ER Triage Doc. by RN): pt states about three days ago he started having SOA, fatigue, and cough. He has taken dayquill and nyquill with no improvement. - History of Present Illness HPI narrative: 3-day history of respiratory . He states he has had rhinorrhea, sore throat, cough, shortness of breath. Denies fever, earache, vomiting, diarrhea. He tested positive for COVID IgG point 12/18/2019, he was negative for IgM and had a negative PCR swab. At that time he says he did have flu type symptoms. - Related Data Previous Rx's Medication Instructions Recorded buspirone 5 mg tablet 5 mg PO BID #60 tab 12/22/19 sertraline 50 mg tablet 50 mg PO DAILY #30 tab 12/22/19 Allergies Allergy/AdvReac Type Severity Reaction Status Date / Time No Known Allergies Allergy Verified 02/03/19 11:12 [facility] History - Hepatitis A Screen Drug use history?: No High risk sexual behaviors?: No History of sexually transmitted infection?: No Currently employed?: No Childcare worker?: No Do you have indoor plumbing?: Yes Do you have electricity?: Yes Attestation statement:: This patient has been screened for Hepatitis A risk factors. I have reviewed the patient's past medical history: Yes
[2020-02-22 00:28] VITALS: BP 126/91; PULSE 94; RESP 18; O2SAT 100
--- NOTE | 2020-02-22 00:30 | XR_ITS ---
PROCEDURE: XR CHEST 2V CLINICAL HISTORY: cough, soa COMPARISON: CR CXR2V XR chest 2V from 08/28/2018 CR CXR2 XR chest AP from 11/09/[id number] abdomen pelvis wo con from 12/19/2018 CR XR CHEST 2V from 07/12/2019 FINDINGS: The cardiomediastinal silhouette and pulmonary vascularity are within normal limits. There is some faint nodularity in the right lung base overlying the anterior aspect of the right 5th rib and may be due to summation artifact. May be confirmed with follow-up. The remaining lungs are clear. No acute bony abnormalities. IMPRESSION: No definite acute finding. Minimal nodularity right lung base possibly due to summation artifact and may be confirmed with follow-up Dictated b Jaycob Benitez MD 02/22/2020 07:48 Jaycob Benitez MD in [place] 02/22/2020 07:48
[2020-02-22 00:34] LABS: Strep Scrn Group A (Rapid) Negative (Negative)
[2020-02-22 00:58] VITALS: BP 137/80; PULSE 74; RESP 18; TEMP 37.1; O2SAT 94
== END 2020-02-22 01:00 | disposition home or self-care (01) ==
PROVIDERS: Emergency Provider Emergency Medicine; PCP Nurse Practitioner Family
DX: J06.9 Acute upper respiratory infection, unspecified (principal); K21.9 Gastro-esophageal reflux disease without esophagitis; E66.01 Morbid (severe) obesity due to excess calories; Z68.43 Body mass index [BMI] 50.0-59.9, adult
CPT/HCPCS: 71046; 87275; 87276; 87430; 99283

== ENCOUNTER → 2020-03-23 17:31 | Outpatient (CLI) | payer OTHER, SELFPAY ==
[2020-03-25 09:20] LABS: Covid-19 Nasal PCR Sendout UK Not Detected
== END ==
PROVIDERS: PCP Nurse Practitioner Family; Visit Provider Nurse Practitioner
DX: Z03.818 Encounter for observation for suspected exposure to other biological agents ruled out (principal)
CPT/HCPCS: U0003

== ENCOUNTER 2020-03-30 18:23 | Emergency (ER) | payer OTHER, SELFPAY ==
[2020-03-30 18:40] VITALS: BP 124/72; PULSE 106; RESP 16; TEMP 37.1; O2SAT 99; BMI 52.9
--- NOTE | 2020-03-30 18:44 | HMH.EDUTC ---
[facility] [place] [facility] Disposition Clinical Impression: Sinusitis Qualifiers: Sinusitis location: unspecified location Chronicity: acute Recurrence: non-recurrent Qualified Code(s): J01.90 - Acute sinusitis, unspecified Disposition: Home, Self-Care Condition on Discharge: Good Instructions: Sinusitis, DI for Sinusitis Additional Instructions: Drink plenty of fluids. Take tylenol or ibuprofen for pain or fever. Take the medications as directed. Follow up with your regular doctor. GO TO THE ER FOR ANY WORSENING SYMPTOMS Prescriptions: Ondansetron [Zofran 4mg ODT] 4 mg PO Q8HP PRN #20 tab.rapdis PRN Reason: Nausea Transmission Status: Received by [id number] Benzonatate [Tessalon Perle 100mg Cap] 100 mg PO TIDP PRN #30 cap PRN Reason: Cough Transmission Status: Received by [id number] Azithromycin [Z-Philip 250mg Tab*] 250 mg PO UD DOSE PK #6 tab Transmission Status: Received by [id number] Referrals: Loretta Alvarez APRN [Primary Care Provider] - Forms: Work/School Release Time of Disposition: 18:46 Medical Decision Making - Medical Records Medical records reviewed: No: I reviewed the patient's medical records. - Benny Inquiry Pt receiving controlled substance: No Vital Signs: 03/30/20 18:40 03/30/20 18:52 Temperature 98.7 F 98.7 F Temperature Source Oral Pulse Rate 106 H Pulse Rate [Left Brachial] 106 H Respiratory Rate 16 16 Blood Pressure 124/72 Blood Pressure [Left Arm] 124/72 Blood Pressure Mean [Left Arm] 89 Blood Pressure Source [Left Arm] Automatic Cuff Blood Pressure Position [Left Arm] Sitting 02 Sat by Pulse Oximetry 99 Oxygen Delivery Method Room Air [facility] HPI - General Stated complaint: cough,chills Time Seen by Provider: 03/30/20 18:44 Mode of Arrival: Ambulatory Source of Information: Patient Limitations: No Limitations Description of Symptoms (Recalled from Triage Doc. by RN): PATIENT C/O COUGH AND CHILLS SINCE THURSDAY HEENT Symptoms (Recalled from RN notes): No Resp Symptoms (Recalled from RN notes): Yes Skin Symptoms (Recalled from RN notes): No MS Symptoms (Recalled from RN notes): No Functional Status (Recalled from RN notes): WNL - History of Present Illness Provider Complaint: He c/o 4 to 5 days of worsening sinus congestion and cough. He had a negative test for COVID-19 1 day ago (for his work). - Related Data Previous Rx's Medication Instructions Recorded buspirone 5 mg tablet 5 mg PO BID #60 tab 12/22/19 sertraline 50 mg tablet 50 mg PO DAILY #30 tab 12/22/19 Azithromycin [Z-Philip 250mg Tab*] 250 mg PO UD DOSE PK #6 tab 03/30/20 Benzonatate [Tessalon Perle 100mg 100 mg PO TIDP PRN #30 cap 03/30/20 Cap] Ondansetron [Zofran 4mg ODT] 4 mg PO Q8HP PRN #20 tab.rapdis 03/30/20 Allergies Allergy/AdvReac Type Severity Reaction Status Date / Time No Known Allergies Allergy Verified 02/03/19 11:12 - Worker's Comp Is this a Worker's Comp case?: No [facility] History - Hepatitis A Screen Drug use history?: No High risk sexual behaviors?: No History of sexually transmitted infection?: No Currently employed?: No Childcare worker?: No Do you have indoor plumbing?: Yes Do you have electricity?: Yes Attestation statement:: This patient has been screened for Hepatitis A risk factors. I have reviewed the patient's past medical history: Yes Medical History: Reports:: Gastroesophageal Reflux Disease(GERD) Denies:: Cancer, Diabetes Mellitus Type 1, Diabetes Mellitus Type 2, Hypertension, Internal Pacemaker, MRSA, Seizures Other Medical History: Reports: Other. Denies: Blood Transfusion Reaction Comment: Super morbid obesity Laterality Cases: Right: Arthroscopy Knee Other Surgeries: Yes: No Previous Surgery, Other. No: Pacemaker Amputation: No Fractures: No Comment: Right knee - Social History Smoking Status: Never smoker Tobacco Type: smokeless tobacco Alcohol Intake: never Alcohol Intake Frequency:: a few andrzej
[2020-03-30 18:52] VITALS: BP 124/72; PULSE 106; RESP 16; TEMP 37.1; O2SAT 99
== END 2020-03-30 18:55 | disposition home or self-care (01) ==
PROVIDERS: Emergency Provider Nurse Practitioner Family; PCP Nurse Practitioner Family
DX: J01.90 Acute sinusitis, unspecified (principal); K21.9 Gastro-esophageal reflux disease without esophagitis
CPT/HCPCS: 99201

== ENCOUNTER 2020-04-02 10:50 | Emergency (ER) | payer OTHER, SELFPAY ==
[2020-04-02 11:01] VITALS: BP 142/76; PULSE 82; RESP 20; TEMP 36.8; O2SAT 98; BMI 41.9
[2020-04-02 11:41] VITALS: BP 142/76; PULSE 82; RESP 20; TEMP 36.8; O2SAT 98
--- NOTE | 2020-04-02 11:58 | HMH.EDUTC ---
[facility] [place] Disposition Clinical Impression: Sinusitis Qualifiers: Sinusitis location: unspecified location Chronicity: acute Recurrence: non-recurrent Qualified Code(s): J01.90 - Acute sinusitis, unspecified Pharyngitis Qualifiers: Pharyngitis/tonsillitis etiology: unspecified etiology Qualified Code(s): J02.9 - Acute pharyngitis, unspecified Disposition: Home, Self-Care Condition on Discharge: Good Instructions: Sinusitis, DI for Sinusitis Additional Instructions: Drink plenty of fluids. Take tylenol or ibuprofen for pain or fever. Take the medications as directed. Follow up with your regular doctor. GO TO THE ER FOR ANY WORSENING SYMPTOMS Prescriptions: predniSONE [Prednisone 20mg Tab] 20 mg PO BID 4 Days #8 tab Transmission Status: Received by [id number] Referrals: Loretta Alvarez APRN [Primary Care Provider] - Forms: Work/School Release Time of Disposition: 12:00 Medical Decision Making - Medical Records Medical records reviewed: No: I reviewed the patient's medical records. - Benny Inquiry Pt receiving controlled substance: No Vital Signs: 04/02/20 11:01 04/02/20 11:41 Temperature 98.2 F 98.2 F Temperature Source Oral Pulse Rate 82 Pulse Rate [Right Brachial] 82 Respiratory Rate 20 20 Blood Pressure 142/76 H Blood Pressure [Right Arm] 142/76 H Blood Pressure Mean [Right Arm] 98 Blood Pressure Source [Right Arm] Automatic Cuff Blood Pressure Position [Right Arm] Sitting 02 Sat by Pulse Oximetry 98 Oxygen Delivery Method Room Air [facility] HPI - General Stated complaint: runny nose, sneezing Time Seen by Provider: 04/02/20 11:05 Mode of Arrival: Ambulatory Limitations: No Limitations Description of Symptoms (Recalled from Triage Doc. by RN): PATIENT C/O SINUS DRAINAGE AND SNEEZING X 2 DAYS HEENT Symptoms (Recalled from RN notes): Yes Resp Symptoms (Recalled from RN notes): No Skin Symptoms (Recalled from RN notes): No MS Symptoms (Recalled from RN notes): No Functional Status (Recalled from RN notes): WNL - History of Present Illness Provider Complaint: He c/o continued sinus pressure and drainage and sore throat. He is taking the medications as directed. He had a negative COVID-19 test done last week after his current symptoms began. - Related Data Previous Rx's Medication Instructions Recorded buspirone 5 mg tablet 5 mg PO BID #60 tab 12/22/19 sertraline 50 mg tablet 50 mg PO DAILY #30 tab 12/22/19 Azithromycin [Z-Philip 250mg Tab*] 250 mg PO UD DOSE PK #6 tab 03/30/20 Benzonatate [Tessalon Perle 100mg 100 mg PO TIDP PRN #30 cap 03/30/20 Cap] Ondansetron [Zofran 4mg ODT] 4 mg PO Q8HP PRN #20 tab.rapdis 03/30/20 predniSONE [Prednisone 20mg 20 mg PO BID 4 Days #8 tab 04/02/20 Tab] Allergies Allergy/AdvReac Type Severity Reaction Status Date / Time No Known Allergies Allergy Verified 02/03/19 11:12 - Worker's Comp Is this a Worker's Comp case?: No [facility] History - Hepatitis A Screen Drug use history?: No High risk sexual behaviors?: No History of sexually transmitted infection?: No Currently employed?: No Childcare worker?: No Do you have indoor plumbing?: Yes Do you have electricity?: Yes Attestation statement:: This patient has been screened for Hepatitis A risk factors. I have reviewed the patient's past medical history: Yes Medical History: Reports:: Gastroesophageal Reflux Disease(GERD) Denies:: Cancer, Diabetes Mellitus Type 1, Diabetes Mellitus Type 2, Hypertension, Internal Pacemaker, MRSA, Seizures Other Medical History: Reports: Other. Denies: Blood Transfusion Reaction Comment: Super morbid obesity Laterality Cases: Right: Arthroscopy Knee Other Surgeries: Yes: No Previous Surgery, Other. No: Pacemaker Amputation: No Fractures: No Comment: Right knee - Social History Smoking Status: Never smoker Tobacco Type: smokeless tobacco Alcohol Intake: never Alcohol Intake Frequency:: a few times a month Sub
== END 2020-04-02 12:05 | disposition home or self-care (01) ==
PROVIDERS: Emergency Provider Nurse Practitioner Family; PCP Nurse Practitioner Family
DX: J01.90 Acute sinusitis, unspecified (principal); F17.290 Nicotine dependence, other tobacco product, uncomplicated
CPT/HCPCS: 99201

== ENCOUNTER 2020-05-07 13:02 | Emergency (ER) | payer OTHER, SELFPAY ==
[2020-05-07 13:13] VITALS: BP 124/73; PULSE 90; RESP 16; TEMP 37.1; O2SAT 99; BMI 51.4
--- NOTE | 2020-05-07 13:25 | HMH.EDUTC ---
[facility] [place] Disposition Clinical Impression: Sinusitis Qualifiers: Sinusitis location: unspecified location Chronicity: acute Recurrence: non-recurrent Qualified Code(s): J01.90 - Acute sinusitis, unspecified Disposition: Home, Self-Care Condition on Discharge: Good Instructions: Sinusitis, DI for Sinusitis Additional Instructions: Drink plenty of fluids. Take tylenol or ibuprofen for pain or fever. Take the medications as directed. Follow up with your regular doctor. GO TO THE ER FOR ANY WORSENING SYMPTOMS FOLLOW THE DIRECTIONS ON THE COVID-19 HAND OUT THAT WE GAVE YOU REGARDING SELF-ISOLATION UNTIL YOU KNOW YOUR COVID-19 RESULTS Prescriptions: Amoxicillin [Amoxicillin 500mg Tab] 500 mg PO TID 10 Days #30 tab Transmission Status: Received by [facility] #[id number] predniSONE [Deltasone 10mg tablet] 10 mg PO BID 3 Days #6 tab Transmission Status: Received by [facility] #[id number] Fluticasone Propionate [Flonase 50mcg nasal spray 16gm] 1 spr NS BID 30 Days #1 bottle Transmission Status: Received by [facility] #[id number] Referrals: Loretta Alvarez APRN [Primary Care Provider] - Forms: Work/School Release Time of Disposition: 13:54 Medical Decision Making - Medical Records Medical records reviewed: No: I reviewed the patient's medical records. - Benny Inquiry Pt receiving controlled substance: No Vital Signs: 05/07/20 13:13 05/07/20 13:47 Temperature 98.8 F 98.8 F Temperature Source Oral Oral Pulse Rate 90 Pulse Rate [Radial] 90 Respiratory Rate 16 16 Blood Pressure 124/73 Blood Pressure [Right Arm] 124/73 Blood Pressure Mean [Right Arm] 90 Blood Pressure Source Automatic Cuff Blood Pressure Source [Right Arm] Automatic Cuff Blood Pressure Position Sitting Blood Pressure Position [Right Arm] Sitting 02 Sat by Pulse Oximetry 99 Oxygen Delivery Method Room Air Room Air Orders (Tests/Meds): ORDERS Category Date Time Status Covid-19 Nasal PCR Sendout [facility] 05/07/20 13:34 Received [facility] [place] HPI - General Stated complaint: Runny nose Time Seen by Provider: 05/07/20 13:25 Mode of Arrival: Ambulatory Source of Information: Patient Limitations: No Limitations Description of Symptoms (Recalled from Triage Doc. by RN): sneezing, cough, sore throat x 2 days, body aches. HEENT Symptoms (Recalled from RN notes): Yes Resp Symptoms (Recalled from RN notes): No Skin Symptoms (Recalled from RN notes): No MS Symptoms (Recalled from RN notes): No Functional Status (Recalled from RN notes): wnl - History of Present Illness Provider Complaint: He states that over the past 3 days, he has had worsening sinus congestion and nasal drainage. He denies any known contact with anyone with COVID. He was positive for igg antibodies for covid back in November, but he is unsure when he had covid. - Related Data Previous Rx's Medication Instructions Recorded buspirone 5 mg tablet 5 mg PO BID #60 tab 12/22/19 sertraline 50 mg tablet 50 mg PO DAILY #30 tab 12/22/19 Azithromycin [Z-Philip 250mg Tab*] 250 mg PO UD DOSE PK #6 tab 03/30/20 Benzonatate [Tessalon Perle 100mg 100 mg PO TIDP PRN #30 cap 03/30/20 Cap] Ondansetron [Zofran 4mg ODT] 4 mg PO Q8HP PRN #20 tab.rapdis 03/30/20 predniSONE [Prednisone 20mg 20 mg PO BID 4 Days #8 tab 04/02/20 Tab] Amoxicillin [Amoxicillin 500mg Tab] 500 mg PO TID 10 Days #30 tab 05/07/20 Fluticasone Propionate [Flonase 1 spr NS BID 30 Days #1 bottle 05/07/20 50mcg nasal spray 16gm] predniSONE [Deltasone 10mg tablet] 10 mg PO BID 3 Days #6 tab 05/07/20 Allergies Allergy/AdvReac Type Severity Reaction Status Date / Time No Known Allergies Allergy Verified 02/03/19 11:12 - Worker's Comp Is this a Worker's Comp case?: No [facility] History - Hepatitis A Screen Drug use history?: No High risk sexual behaviors?: No History of sexually transmitted infection?: No Currently employed?: No Childcare worker?: No Do you h
[2020-05-07 13:47] VITALS: BP 124/73; PULSE 90; RESP 16; TEMP 37.1; O2SAT 99
[2020-05-08 13:56] LABS: Covid-19 Nasal PCR Sendout Lex Not Detected
== END 2020-05-07 13:54 | disposition home or self-care (01) ==
PROVIDERS: Emergency Provider Nurse Practitioner Family; PCP Nurse Practitioner Family
DX: J01.90 Acute sinusitis, unspecified (principal); K21.9 Gastro-esophageal reflux disease without esophagitis; E66.01 Morbid (severe) obesity due to excess calories; Z68.43 Body mass index [BMI] 50.0-59.9, adult; Z20.828 Contact with and (suspected) exposure to other viral communicable diseases; Z79.899 Other long term (current) drug therapy
CPT/HCPCS: 99201; U0004

== ENCOUNTER 2020-06-25 20:39 | Emergency (ER) | payer OTHER, SELFPAY ==
[2020-06-25 20:53] VITALS: BP 136/80; PULSE 76; RESP 8; TEMP 36.6; O2SAT 98; BMI 53.9
[2020-06-25 20:58] VITALS: BP 136/80; PULSE 76; RESP 18; TEMP 36.6; O2SAT 98
--- NOTE | 2020-06-25 21:03 | HMH.EDUTC ---
[facility] [place] Disposition Clinical Impression: Encounter for laboratory testing for COVID-19 virus Disposition: Home, Self-Care Condition on Discharge: Good Instructions: Preventing the Spread of Coronavirus Discharge Instructions Additional Instructions: *Monitor Temp, Over the counter Motrin or Tylenol as directed/as needed Tylenol every 4 hours and Motrin every 6 hours (as long as your family doctor has told you that you can take it) for fever or pain. and straight to ER if unable to lower temp less than 101.0 after medication given *Warm salt water gargles may help to soothe the throat *Throat Lozenges *Warm fluids like tea with honey may help to soothe the throat *Sleep elevated *Humidifier/Vaporizer *Flonase 2 sprays in each nostril daily but be aware that it may take 2-3 days before you notice improvement Follow up IMMEDIATELY for new or worsening symptoms or no Noticeable improvement over the next 48-72 hours. 911 for difficulty breathing or swallowing You were tested for today for COVID19 your test result should be back in the next 24-48 hours, you may call to the [facility] to see if your test results are back in the next 48 hours [phone] [facility] hours are 9am-9pm You was given a handout with instructions for Self Quarantine and Self isolation for while you wait on test results and what to do if they are positive If you are positive the Health Dept will be contacting you also Prescriptions: Fluticasone Propionate [Flonase 50mcg nasal spray 16gm] 1 spr NS DAILY #1 bottle Transmission Status: Pending to [facility] #[id number] Referrals: Loretta Alvarez APRN [Primary Care Provider] - As needed Forms: Work/School Release Time of Disposition: 21:06 Medical Decision Making - Benny Inquiry Pt receiving controlled substance: No Benny was queried for this patient: No Vital Signs: 06/25/20 20:53 06/25/20 20:58 Temperature 97.8 F 97.8 F Temperature Source Oral Oral Pulse Rate 76 Pulse Rate [Left] 76 Respiratory Rate 8 L 18 Blood Pressure 136/80 Blood Pressure [Right Arm] 136/80 Blood Pressure Mean [Right Arm] 98 Blood Pressure Source [Right Arm] Automatic Cuff Blood Pressure Position [Right Arm] Sitting 02 Sat by Pulse Oximetry 98 Oxygen Delivery Method Room Air Orders (Tests/Meds): ORDERS Category Date Time Status Covid-19 Nasal PCR Sendout [facility] 06/25/20 20:41 Received [facility] [place] HPI - General Stated complaint: COVID,TEST,SORE THROAT,WEAKNESS Time Seen by Provider: 06/25/20 21:03 Mode of Arrival: Ambulatory Source of Information: Patient Limitations: No Limitations Description of Symptoms (Recalled from Triage Doc. by RN): Covid test- Mom tested positive HEENT Symptoms (Recalled from RN notes): No Resp Symptoms (Recalled from RN notes): No Skin Symptoms (Recalled from RN notes): No MS Symptoms (Recalled from RN notes): Yes Functional Status (Recalled from RN notes): swnl - History of Present Illness Provider Complaint: Patient state that his mother recently tested positive for COVID and he has been around her State that she has been having body aches, chills, headache and over all feeling achy all over and he has a new born at home and wanted to get tested for COVID to make sure that he doesnt have it - Related Data Previous Rx's Medication Instructions Recorded buspirone 5 mg tablet 5 mg PO BID #60 tab 12/22/19 sertraline 50 mg tablet 50 mg PO DAILY #30 tab 12/22/19 Azithromycin [Z-Philip 250mg Tab*] 250 mg PO UD DOSE PK #6 tab 03/30/20 Benzonatate [Tessalon Perle 100mg 100 mg PO TIDP PRN #30 cap 03/30/20 Cap] Ondansetron [Zofran 4mg ODT] 4 mg PO Q8HP PRN #20 tab.rapdis 03/30/20 predniSONE [Prednisone 20mg 20 mg PO BID 4 Days #8 tab 04/02/20 Tab] Amoxicillin [Amoxicillin 500mg Tab] 500 mg PO TID 10 Days #30 tab 05/07/20 Fluticasone Propionate [Flonase 1 spr NS BID 30 Days #1 bottle 05/07/20 50mcg nasal spray 16gm] predniSONE [Deltasone 10mg tablet] 10 mg PO
[2020-06-27 14:19] LABS: Covid-19 Nasal PCR Sendout Lex Not Detected
== END 2020-06-25 21:36 | disposition home or self-care (01) ==
PROVIDERS: Emergency Provider Nurse Practitioner; PCP Nurse Practitioner Family
DX: Z20.828 Contact with and (suspected) exposure to other viral communicable diseases (principal); K21.9 Gastro-esophageal reflux disease without esophagitis
CPT/HCPCS: 99201; U0004

== ENCOUNTER 2020-10-30 14:17 | Emergency (ER) | payer OTHER, SELFPAY ==
[2020-10-30 14:30] VITALS: BP 149/92; PULSE 82; RESP 19; TEMP 36.6; O2SAT 99; BMI 52.9
--- NOTE | 2020-10-30 14:55 | XR_ITS ---
PROCEDURE: XR THORACIC SPINE 3V CLINICAL INDICATION: PAIN Back pain COMPARISON: CR [id number] XR thoracic spine 2V from 12/19/2017 FINDINGS: No fracture or dislocation. No lytic or blastic change. There is normal mineralization. The joint spaces are well-preserved. No significant degenerative/arthritic changes. No erosive changes evident. Other findings:There is minimal thoracic curvature convex left. IMPRESSION: No change with no acute finding Dictated by: Jaycob Benitez MD 10/30/2020 15:30 Jaycob Benitez MD in [place] 10/30/2020 15:30
--- NOTE | 2020-10-30 14:55 | HMH.EDUTC ---
[facility] [place] Disposition Clinical Impression: Back pain Qualifiers: Back pain location: thoracic back pain Chronicity: unspecified Back pain laterality: midline Qualified Code(s): M54.6 - Pain in thoracic spine Disposition: Home, Self-Care Condition on Discharge: Good Instructions: DI for Thoracic Back Pain, Etodolac, Methocarbamol Additional Instructions: *Etodolac kushal 6 hours with meal as needed for pain/inflammation *Not additional anti-inflammatory like motrin, aleve, advil with the above amount of Etodolac. You can still take Tylenol every 4 hours as needed if you need something else for pain *Ice 20 minutes every 2 hours for the first 48 hours after the initial injury followed by moist heat every 20 minutes 3-4 times a day to affected area *Muscle relaxer as prescribed as needed for muscle spasms but remember, it WILL cause drowsiness You cannot take it and drive, operate machinery or care for small children. *Keep this area active, no movement leads to more stiffness, However take it easy and avoid heavy lifting pushing or pulling *Follow up with you family doctor if no improvement for further treatment Return if needed Straight to ER if any life threatening symptoms Prescriptions: Etodolac [Etodolac 200mg Cap*] 200 mg PO Q6H PRN #20 cap PRN Reason: Moderate Pain Transmission Status: Pending to [facility] # methocarbamoL [Methocarbamol 500mg Tablet] 500 mg PO BID PRN 5 Days #10 tab PRN Reason: Muscle Spasm Transmission Status: Pending to [facility] # Referrals: Loretta Alvarez APRN [Primary Care Provider] - As needed Forms: Work/School Release Time of Disposition: 15:41 Medical Decision Making - Benny Inquiry Pt receiving controlled substance: No Benny was queried for this patient: No Vital Signs: 10/30/20 14:30 Temperature 97.8 F Temperature Source Oral Pulse Rate [Right Brachial] 82 Respiratory Rate 19 Blood Pressure [Right Arm] 149/92 H Blood Pressure Mean [Right Arm] 111 Blood Pressure Source [Right Arm] Automatic Cuff Blood Pressure Position [Right Arm] Sitting 02 Sat by Pulse Oximetry 99 Oxygen Delivery Method Room Air - Lab Data Lab results reviewed: Yes: I reviewed the patient's lab results. Lab Results 10/30/20 14:29: Urine Color Yellow, Urine Appearance Clear, Urine pH 8.0, Ur Specific [place] 1.025, Urine Protein Trace, Urine Glucose (UA) Negative, Urine Ketones Negative, Urine Blood Negative, Urine Nitrate Negative, Urine Bilirubin Negative, Urine Urobilinogen 0.2, Ur Leukocyte Esterase Negative - Radiology Data #1 Image(s): T-Spine Image Reviewed: Yes I have reviewed radiologist's interpretation No change with no acute finding Medical Decision Narrative: urine dip negative discussed with patient recommended tested for STD and patient declined [facility] [place] HPI - General Stated complaint: back pain, rizzo when urinates Time Seen by Provider: 10/30/20 14:55 Mode of Arrival: Ambulatory Source of Information: Patient Limitations: No Limitations Description of Symptoms (Recalled from Triage Doc. by RN): PATIENT C/O LOWER BACK PAIN AND BURING WITH URINATION SINCE LAST NIGHT HEENT Symptoms (Recalled from RN notes): No Resp Symptoms (Recalled from RN notes): No Skin Symptoms (Recalled from RN notes): No MS Symptoms (Recalled from RN notes): No Functional Status (Recalled from RN notes): WNL - History of Present Illness Provider Complaint: Patient state that he has been having achy like pain in his back area and burning with urination State that he wasnt sure if he pulled something in his back or if he may have a UTI States that it just started last night and hurts worse with movement Denies loss of control of bowel or bladder - Related Data Previous Rx's Medication Instructions Recorded Etodolac [Etodolac 200mg Cap*] 200 mg PO Q6H PRN #20 cap 10/30/20 methocarbamoL [Methocarbamol 500mg 500 mg PO BID PRN 5 Days #10 tab 10/30/20 Tablet]
[2020-10-30 15:18] LABS: Apearance,Urine Clear (Clear); Color,Urine Yellow (Yellow)
[2020-10-30 15:19] LABS: Bilirubin,Urine Negative (Negative); Blood, Urine Negative (Negative); Glucose,Urine (UA) Negative (Negative); Ketones,Urine Negative (Negative); Protein,Urine Trace (Negative); Specific Gravity, Urine 1.025 (1.005-1.030); UTC Leukocyte Esterase,Urine Negative (Negative); UTC Nitrate,Urine Negative (Negative); Urobilinogen,Urine 0.2 EU/dl (0.2)
[2020-10-30 15:43] VITALS: BP 149/92; PULSE 82; RESP 19; TEMP 36.6; O2SAT 99
== END 2020-10-30 15:48 | disposition home or self-care (01) ==
PROVIDERS: Emergency Provider Nurse Practitioner; PCP Nurse Practitioner Family
DX: M54.6 Pain in thoracic spine (principal); K21.9 Gastro-esophageal reflux disease without esophagitis; E66.01 Morbid (severe) obesity due to excess calories; Z68.43 Body mass index [BMI] 50.0-59.9, adult
CPT/HCPCS: 72072; 81003; 99202; G0463

== ENCOUNTER 2020-11-12 19:35 | Emergency (ER) | payer OTHER, SELFPAY ==
[2020-11-12 19:51] VITALS: BP 130/85; PULSE 82; RESP 16; TEMP 36.9; O2SAT 98; BMI 65.8
--- NOTE | 2020-11-12 20:17 | HMH.EDUTC ---
[facility] [place] Clinical Impression: Headache Qualifiers: Headache type: unspecified Headache chronicity pattern: unspecified pattern Intractability: not intractable Qualified Code(s): R51.9 - Headache, unspecified Disposition: Home, Self-Care Condition on Discharge: Good Instructions: DI for Headache Additional Instructions: Make sure to follow up with your Family Doctor as we discussed Return if needed Straight to ER if any life threatening symptoms Follow up with Eye Doctor for re-evaluation if you are having trouble seeing out of your glasses Referrals: Loretta Alvarez APRN [Primary Care Provider] - Forms: Work/School Release Time of Disposition: 20:26 Medical Decision Making - Benny Inquiry Pt receiving controlled substance: No Benny was queried for this patient: No Vital Signs: 11/12/20 19:51 11/12/20 20:24 Temperature 98.4 F 98.4 F Temperature Source Oral Oral Pulse Rate 82 Pulse Rate [Right Brachial] 82 Respiratory Rate 16 16 Blood Pressure 130/85 Blood Pressure [Right Arm] 130/85 Blood Pressure Mean [Right Arm] 100 Blood Pressure Source Automatic Cuff Blood Pressure Source [Right Arm] Automatic Cuff Blood Pressure Position Sitting Blood Pressure Position [Right Arm] Sitting 02 Sat by Pulse Oximetry 98 Oxygen Delivery Method Room Air Room Air Orders (Tests/Meds): ED MEDICATIONS Discontinued Medications Generic Name Dose Route Start Last Admin Trade Name Rambo PRN Reason Stop Dose Admin Acetaminophen 650 mg 11/12/20 20:18 11/12/20 20:22 Acetaminophen 325mg Tab PO 11/12/20 20:19 650 mg ONCE ONE Administration Medical Decision Narrative: Patient states that he had a headache earlier and felt a little light headed and dizzy States that he recently seen eye doctor and they changed his glasses and he hasnt been wearing them because he cannot see well out of them State that he is feeling better now and needed a note for work where he had to leave Discussed with patient and due to frequency of headaches recommended transfer to the Ed and patient declined State that he is feeling better now and no longer having dizziness or blurred vision that he would follow up with his PCP tomorrow for further treatment and evaluation and through work up After Tylenol patient states that he is much better headache now gone and no longer having any symptoms [facility] [place]PI - General Stated complaint: light headed dizzy migraine Time Seen by Provider: 04/26/21 20:17 Mode of Arrival: Ambulatory Source of Information: Patient Limitations: No Limitations Description of Symptoms (Recalled from Triage Doc. by RN): LIGHT HEADED, MIGRAINE AND BLURRY VISION HEENT Symptoms (Recalled from RN notes): Yes Resp Symptoms (Recalled from RN notes): No Skin Symptoms (Recalled from RN notes): No MS Symptoms (Recalled from RN notes): No Functional Status (Recalled from RN notes): WNL - History of Present Illness Provider Complaint: Patient states that they recently changed his glasses and he has not been wearing them because they aggrivate him and thinks he is having headaches maybe from not wearing them States that at times his vision is blurry but thinks it is where he is straining to see States that he was at work earlier and felt a headache coming on and felt a little dizzy States that he left work and then his headache started to ease off and his dizziness stopped and no longer having blurry vision States that he had to come in and get a doctor note from leaving work - Related Data Previous Rx's Medication Instructions Recorded Etodolac [Etodolac 200mg Cap*] 200 mg PO Q6H PRN #20 cap 10/30/20 methocarbamoL [Methocarbamol 500mg 500 mg PO BID PRN 5 Days #10 tab 10/30/20 Tablet] Allergies Allergy/AdvReac Type Severity Reaction Status Date / Time No Known Allergies Allergy Verified 06/25/20 20:58 - Worker's Comp Is this a Worker's Comp case?: No [facility] History - Hepatitis A Scre
[2020-11-12 20:24] VITALS: BP 130/85; PULSE 82; RESP 16; TEMP 36.9; O2SAT 98
== END 2020-11-12 20:41 | disposition home or self-care (01) ==
PROVIDERS: Emergency Provider Nurse Practitioner; PCP Nurse Practitioner Family
DX: R51.9 Headache, unspecified (principal); K21.9 Gastro-esophageal reflux disease without esophagitis
CPT/HCPCS: 99202; G0463

== ENCOUNTER 2020-12-19 16:55 | Emergency (ER) | payer OTHER, SELFPAY ==
[2020-12-19 18:03] VITALS: BP 131/94; PULSE 85; RESP 18; TEMP 36.8; O2SAT 99; BMI 54.2
[2020-12-19 18:06] VITALS: BP 138/97; PULSE 87; RESP 16; TEMP 36.6
--- NOTE | 2020-12-19 18:34 | HMH.EDUTC ---
[facility] [place] Impression: Allergic rhinitis Qualifiers: Allergic rhinitis trigger: unspecified Allergic rhinitis seasonality: unspecified Qualified Code(s): J30.9 - Allergic rhinitis, unspecified Disposition: Home, Self-Care Condition on Discharge: Good Instructions: DI for Allergic Rhinitis, Allergic Rhinitis, Cetirizine, Fluticasone Nasal [place] Additional Instructions: *Monitor Temp, Over the counter Motrin or Tylenol as directed/as needed Tylenol every 4 hours and Motrin every 6 hours (as long as your family doctor has told you that you can take it) for fever or pain. and straight to ER if unable to lower temp less than 101.0 after medication given *Warm salt water gargles may help to soothe the throat *Throat Lozenges *Warm fluids like tea with honey may help to soothe the throat *Sleep elevated *Humidifier/Vaporizer *Flonase 2 sprays in each nostril daily but be aware that it may take 2-3 days before you notice improvement Take Zyrtec daily for allergies Follow up IMMEDIATELY for new or worsening symptoms or no Noticeable improvement over the next 48-72 hours. 911 for difficulty breathing or swallowing Prescriptions: Fluticasone Propionate [Flonase 50mcg nasal spray 16gm] 1 spr NS DAILY #1 bottle Transmission Status: Pending to [facility] # Cetirizine HCl [Zyrtec 10mg ODT*] 10 mg PO DAILY #30 tab Transmission Status: Pending to [facility] # Referrals: Miguel Moreau MD [Primary Care Provider] - As needed Forms: Work/School Release Time of Disposition: 18:44 Medical Decision Making - Benny Inquiry Pt receiving controlled substance: No Benny was queried for this patient: No Vital Signs: 12/19/20 18:03 12/19/20 18:06 Temperature 98.2 F 98 F Temperature Source Oral Pulse Rate 87 Pulse Rate [Right] 85 Respiratory Rate 18 16 Blood Pressure 138/97 H Blood Pressure [Right Arm] 131/94 H Blood Pressure Mean [Right Arm] 106 02 Sat by Pulse Oximetry 99 [facility] [place] - General Stated complaint: congestion Time Seen by Provider: 12/19/20 18:34 Mode of Arrival: Ambulatory Source of Information: Patient Limitations: No Limitations Description of Symptoms (Recalled from Triage Doc. by RN): pt c/o fatigue, congestion, runny nose and allergies. pt is blowing out white and green mucous from his nose. HEENT Symptoms (Recalled from RN notes): Yes (nasal congestion) Resp Symptoms (Recalled from RN notes): No Skin Symptoms (Recalled from RN notes): No MS Symptoms (Recalled from RN notes): No Functional Status (Recalled from RN notes): fatigue - History of Present Illness Provider Complaint: Patient states that he thinks having allergy problems States that he has been having nasal congestion and blowing out white and green mucous State that he has been feeling tired and achy all over today so he came in to get checked - Related Data Previous Rx's Medication Instructions Recorded Etodolac [Etodolac 200mg Cap*] 200 mg PO Q6H PRN #20 cap 10/30/20 methocarbamoL [Methocarbamol 500mg 500 mg PO BID PRN 5 Days #10 tab 10/30/20 Tablet] Cetirizine HCl [Zyrtec 10mg ODT*] 10 mg PO DAILY #30 tab 12/19/20 Fluticasone Propionate [Flonase 1 spr NS DAILY #1 bottle 12/19/20 50mcg nasal spray 16gm] Allergies Allergy/AdvReac Type Severity Reaction Status Date / Time No Known Allergies Allergy Verified 12/19/20 18:05 - Worker's Comp Is this a Worker's Comp case?: No [facility] History - Hepatitis A Screen Drug use history?: No High risk sexual behaviors?: No History of sexually transmitted infection?: No Currently employed?: No Childcare worker?: No Do you have indoor plumbing?: Yes Do you have electricity?: Yes Attestation statement:: This patient has been screened for Hepatitis A risk factors. I have reviewed the patient's past medical history: Yes Medical History: Reports:: Gastroesophageal Reflux Disease(GERD) Denies:: Cancer, Diabetes Mellitus Type
== END 2020-12-19 19:09 | disposition home or self-care (01) ==
PROVIDERS: Emergency Provider Nurse Practitioner; PCP Family Medicine
DX: J30.9 Allergic rhinitis, unspecified (principal); K21.9 Gastro-esophageal reflux disease without esophagitis; F12.10 Cannabis abuse, uncomplicated
CPT/HCPCS: 99202; G0463

== ENCOUNTER 2021-01-07 13:40 | Emergency (ER) | payer OTHER, SELFPAY ==
[2021-01-07 13:50] VITALS: BP 135/98; PULSE 78; RESP 18; TEMP 36.9; O2SAT 95; BMI 53.8
[2021-01-07 14:13] VITALS: BP 135/98; PULSE 78; RESP 18; TEMP 36.9; O2SAT 95
--- NOTE | 2021-01-07 14:31 | HMH.EDUTC ---
[facility] [place] Impression: Nausea vomiting and diarrhea Disposition: Home, Self-Care Condition on Discharge: Good Instructions: Nausea and Vomiting-Adult, Diarrhea, Ondansetron Additional Instructions: Drink extra fluids with and between meals. If you have difficulty drinking, try very small amounts of water or suck on ice chips. ? Avoid fruit juices, as these do not replace minerals and can actually increase diarrhea. ? Children and adults can use sports drinks to replenish electrolytes. Younger children and infants should use products formulated for children, like oral rehydration solutions. ? Eat food in small amounts and let your stomach recover. ? Get lots of rest. You may feel tired or weak. ? No greasy or fried foods for the next 24-48 hours BRAT diet Bananas Rice Apples and [place] ? Make sure to drink plenty of liquids ? Return if needed ? Straight to ER if any life threatening symptoms ? Zofran as prescribed ? You was given an outpatient order for diarrhea panel, please collect specimen and bring back to outpatient lab then call back to the [facility] or follow up with family doctor for results ? Follow up with family doctor in the next 48-72 hours if no improvement or any worsening of symptoms Prescriptions: Ondansetron [Zofran 4mg ODT] 4 mg PO TIDP PRN #10 tab PRN Reason: Nausea Transmission Status: Pending to [facility] #[id number] Referrals: Miguel Moreau MD [Primary Care Provider] - As needed Forms: Work/School Release Time of Disposition: 14:38 Medical Decision Making - Benny Inquiry Pt receiving controlled substance: No Benny was queried for this patient: No Vital Signs: 01/07/21 13:50 01/07/21 14:13 Temperature 98.5 F 98.5 F Temperature Source Oral Pulse Rate 78 Pulse Rate [Right Brachial] 78 Respiratory Rate 18 18 Blood Pressure 135/98 H Blood Pressure [Right Arm] 135/98 H Blood Pressure Mean [Right Arm] 110 Blood Pressure Source [Right Arm] Automatic Cuff Blood Pressure Position [Right Arm] Sitting 02 Sat by Pulse Oximetry 95 Oxygen Delivery Method Room Air [facility] [place] - General Stated complaint: diarrhea, vomiting Time Seen by Provider: 01/07/21 14:31 Mode of Arrival: Ambulatory Source of Information: Patient Limitations: No Limitations Description of Symptoms (Recalled from Triage Doc. by RN): PATIENT C/O NAUSEA, VOMITING, AND DIARRHEA SINCE YESTERDAY. DENIES ABDOMINAL PAIN OR SICK CONTACTS HEENT Symptoms (Recalled from RN notes): No Resp Symptoms (Recalled from RN notes): No Skin Symptoms (Recalled from RN notes): No MS Symptoms (Recalled from RN notes): No Functional Status (Recalled from RN notes): WNL - History of Present Illness Provider Complaint: Patient states that he has been having nausea, vomiting and diarrhea since yesterday States that he is not having any abdominal pain but states that several people at work has been having stomach bug State that last episode of vomiting or diarrhea was last night but still having nausea today wanting a work note - Related Data Home Medications Medication Instructions Recorded Confirmed Famotidine [Pepcid 20mg Tablet] 20 mg PO HS 01/07/21 01/07/21 Previous Rx's Medication Instructions Recorded Ondansetron [Zofran 4mg ODT] 4 mg PO TIDP PRN #10 tab 01/07/21 Allergies Allergy/AdvReac Type Severity Reaction Status Date / Time No Known Allergies Allergy Verified 12/19/20 18:05 - Worker's Comp Is this a Worker's Comp case?: No [facility] History - Hepatitis A Screen Drug use history?: No High risk sexual behaviors?: No History of sexually transmitted infection?: No Currently employed?: No Childcare worker?: No Do you have indoor plumbing?: Yes Do you have electricity?: Yes Attestation statement:: This patient has been screened for Hepatitis A risk factors. I have reviewed the patient's past medical history: Yes Medical History: Reports:: Gastroesophageal Reflux Disease(WANDA
== END 2021-01-07 14:45 | disposition home or self-care (01) ==
PROVIDERS: Emergency Provider Nurse Practitioner; PCP Family Medicine
DX: R11.2 Nausea with vomiting, unspecified (principal); R19.7 Diarrhea, unspecified; E66.01 Morbid (severe) obesity due to excess calories; Z68.43 Body mass index [BMI] 50.0-59.9, adult; K21.9 Gastro-esophageal reflux disease without esophagitis
CPT/HCPCS: 99202; G0463

== ENCOUNTER → 2021-01-11 12:39 | Outpatient (CLI) | payer OTHER, SELFPAY ==
--- NOTE | 2021-01-11 12:42 | MR_ITS ---
PROCEDURE: MR SHOULDER RT WO CON CLINICAL INDICATION: RIGHT SHOULDER PAIN [place] a pop in shoulder x1.5months ago. No injury or trauma. Weakness in arm. Limited ROM. COMPARISON: No exams were available for comparison TECHNIQUE: Routine multiplanar multi echo sequences are performed without gadolinium enhancement. FINDINGS: No acute fracture or dislocation. No subacromial stenosis or significant degenerative change. There is a small area of increased T2 signal in the distal aspect of the infraspinatus tendon which could represent a tiny intrasubstance tear. A full-thickness or complete tear is not felt to be present. The supraspinatus tendon has an unremarkable appearance as does the subscapularis and teres minor tendon. The bicipital tendon is in place. No obvious labral tear. No bone bruise evident. IMPRESSION: Questionable small intrasubstance tear of the distal aspect of the infraspinatus tendon otherwise negative MRI of the right shoulder Dictated by: Jaycob Benitez MD 01/14/2021 08:28 Jaycob Benitez MD in [place] 01/14/2021 08:28
== END ==
PROVIDERS: PCP Nurse Practitioner Family; Visit Provider Orthopaedic Surgery Adult Reconstructive Orthopaedic Surgery
DX: M25.511 Pain in right shoulder (principal)
CPT/HCPCS: 73221

== ENCOUNTER 2021-02-12 15:47 | Emergency (ER) | payer OTHER, SELFPAY ==
[2021-02-12 15:48] VITALS: BP 135/83; PULSE 91; RESP 18; TEMP 36.9; O2SAT 97; BMI 51.8
--- NOTE | 2021-02-12 17:24 | HMH.EDUTC ---
[facility] [place] Impression: Gastroenteritis Diarrhea Qualifiers: Diarrhea type: unspecified type Qualified Code(s): R19.7 - Diarrhea, unspecified Disposition: Home, Self-Care Condition on Discharge: Good Instructions: DI for Viral Gastroenteritis -- Adult Additional Instructions: Drink plenty of fluids. Water or something like gatorade would be best. Take tylenol or ibuprofen for pain or fever. Take the medications as directed. Follow up with your regular doctor. GO TO THE ER FOR ANY WORSENING SYMPTOMS Prescriptions: Ondansetron [Zofran 4mg ODT] 4 mg PO Q8HP PRN #12 tab.rapdis PRN Reason: Nausea Transmission Status: Received by [facility] #[id number] Referrals: Loretta Alvarez APRN [Primary Care Provider] - Forms: Work/School Release Time of Disposition: 17:33 Medical Decision Making - Medical Records Medical records reviewed: No: I reviewed the patient's medical records. - Benny Inquiry Pt receiving controlled substance: No Vital Signs: 02/12/21 15:48 02/12/21 18:00 Temperature 98.4 F 98.4 F Temperature Source Oral Oral Pulse Rate 91 H Pulse Rate [Left Radial] 91 H Respiratory Rate 18 18 Blood Pressure 135/83 Blood Pressure [Right Arm] 135/83 Blood Pressure Mean [Right Arm] 100 Blood Pressure Source Automatic Cuff Blood Pressure Source [Right Arm] Automatic Cuff Blood Pressure Position Sitting Blood Pressure Position [Right Arm] Sitting 02 Sat by Pulse Oximetry 97 Oxygen Delivery Method Room Air Room Air [facility] [place] - General Stated complaint: Diarrhea Time Seen by Provider: 02/12/21 16:50 Mode of Arrival: Ambulatory Source of Information: Patient Limitations: No Limitations Description of Symptoms (Recalled from Triage Doc. by RN): c/o diarrhea since last Thursday HEENT Symptoms (Recalled from RN notes): No Resp Symptoms (Recalled from RN notes): No Skin Symptoms (Recalled from RN notes): No MS Symptoms (Recalled from RN notes): No Functional Status (Recalled from RN notes): wnl - History of Present Illness Provider Complaint: He states that he went on vacation last week and developed diarrhea. His diarrhea has continued since then. He states that it is slowing down, but he was unable to go to work today because of it. He denies any abdominal pain. He had n/v at first, but that resolved several day ago. - Related Data Home Medications Medication Instructions Recorded Confirmed Famotidine [Pepcid 20mg Tablet] 20 mg PO HS 01/07/21 01/07/21 Previous Rx's Medication Instructions Recorded Ondansetron [Zofran 4mg ODT] 4 mg PO TIDP PRN #10 tab 01/07/21 Ondansetron [Zofran 4mg ODT] 4 mg PO Q8HP PRN #12 tab.rapdis 02/12/21 Allergies Allergy/AdvReac Type Severity Reaction Status Date / Time No Known Allergies Allergy Verified 12/19/20 18:05 - Worker's Comp Is this a Worker's Comp case?: No [facility] History - Hepatitis A Screen Drug use history?: No High risk sexual behaviors?: No History of sexually transmitted infection?: No Currently employed?: No Childcare worker?: No Do you have indoor plumbing?: Yes Do you have electricity?: Yes Attestation statement:: This patient has been screened for Hepatitis A risk factors. I have reviewed the patient's past medical history: Yes Medical History: Reports:: Gastroesophageal Reflux Disease(GERD) Denies:: Cancer, Diabetes Mellitus Type 1, Diabetes Mellitus Type 2, Hypertension, Internal Pacemaker, MRSA, Seizures Other Medical History: Reports: Other. Denies: Blood Transfusion Reaction Comment: Super morbid obesity Laterality Cases: Right: Arthroscopy Knee Other Surgeries: Yes: No Previous Surgery, Other. No: Pacemaker Amputation: No Fractures: No Comment: Right knee - Social History Smoking Status: Never smoker Tobacco Type: smokeless tobacco Alcohol Intake: never Alcohol Intake Frequency:: a few times a month Substance Use Type: denies use, marijuana [place]
[2021-02-12 18:00] VITALS: BP 135/83; PULSE 91; RESP 18; TEMP 36.9; O2SAT 97
== END 2021-02-12 18:01 | disposition home or self-care (01) ==
PROVIDERS: Emergency Provider Nurse Practitioner Family; PCP Nurse Practitioner Family
DX: K52.9 Noninfective gastroenteritis and colitis, unspecified (principal); F17.290 Nicotine dependence, other tobacco product, uncomplicated
CPT/HCPCS: 99202; G0463

== ENCOUNTER → 2021-03-15 14:31 | Outpatient (CLI) | payer OTHER, SELFPAY ==
--- NOTE | 2021-03-15 14:35 | MR_ITS ---
PROCEDURE: MR SHOULDER RT WO CON CLINICAL INDICATION: PAIN IN RIGHT SHOULDER COMPARISON: MR MR SHOULDER RT WO CON from 01/11/2021 TECHNIQUE: Routine multiplanar multi echo sequences are performed without gadolinium enhancement. FINDINGS: Low-lying acromion with subacromial stenosis 5 mm. Mild hypertrophic changes of the acromioclavicular joint. No evidence of rotator cuff tear. On the previous study there was a small focal area of increased T2 signal involving the distal aspect of the infraspinatus tendon which is not present on today's exam. The subscapularis and teres minor tendons appear intact as do the supraspinatus and infraspinatus tendons. The bicipital tendon is in place. There does appear to be a SLAP tear of the glenoid labrum from the 1 to the 3 o'clock position and possibly some extension to the 4 or 5 o'clock region. No shoulder joint effusion. IMPRESSION: 1. No evidence of rotator cuff tear. 2. Suspected SLAP tear of the glenoid labrum from 1-3 o'clock position with possible extension inferiorly 3. Subacromial stenosis Dictated by: Jaycob Benitez MD 03/18/2021 07:55 Jaycob Benitez MD in [place] 03/18/2021 07:55
== END ==
PROVIDERS: Visit Provider Orthopaedic Surgery Adult Reconstructive Orthopaedic Surgery
DX: M25.511 Pain in right shoulder (principal)
CPT/HCPCS: 73221

== ENCOUNTER 2021-04-01 11:00 | Outpatient (RCR) | payer OTHER, SELFPAY | END 2021-04-01 11:05 | disposition home or self-care (01) | LOC: OT 11:00 | DX: M25.511 Pain in right shoulder (principal) | CPT/HCPCS: 97014; 97033; 97035; 97110; 97140; 97164; 97166; 97530; G0283 ==

== ENCOUNTER 2021-04-12 19:44 | Emergency (ER) | payer OTHER, SELFPAY ==
--- NOTE | 2021-04-12 19:44 | ECG_ITS ---
APPROVED REPORT Exam: Resting ECG HR:83 bpm ECG Measurements Heart Rate 83 AXES [place] 158 P 38 QRSd 92 QRS 21 QT 364 T 12 QTc 427 Conclusion Normal sinus rhythm Normal ECG Electronically signed by : Miguel Arguelles MD 04/14/2021 20:55:47
[2021-04-12 19:54] VITALS: BP 141/85; PULSE 97; RESP 16; O2SAT 97; BMI 52.2
--- NOTE | 2021-04-12 20:02 | XR_ITS ---
PROCEDURE INFORMATION: Exam: XR Chest Exam date and time: 04/12/2021 8:02 PM Age: 25 years old Clinical indication: Chest pressure; Patient HX: Chest pain TECHNIQUE: Imaging protocol: XR of the chest. Views: 2 views. COMPARISON: CR XR CHEST 2V 02/22/2020 12:28 AM FINDINGS: Lungs: Unremarkable. No consolidation. Pleural spaces: Unremarkable. No pleural effusion. No pneumothorax. Heart/Mediastinum: Unremarkable. No cardiomegaly. Bones/joints: Unremarkable. IMPRESSION: No acute findings.
[2021-04-12 20:39] LABS: Basophils # 0.1 K/mm3 (0-0.2); Basophils % 0.8 % (0.1-2.0); Eosinophils # 0.1 K/mm3 (0.0-0.4); Eosinophils % 0.7 % (0.1-12.0); Hematocrit 46.5 % (42.0-52.0); Hemoglobin 14.3 g/dL (14.1-18.0); Lymphocytes # 2.8 K/mm3 (0.7-4.5); Lymphocytes % 26.5 % (10-50); Mean Corpuscular HGB Conc 30.9 g/dL (31.8-35.4); Mean Corpuscular Hemoglobin 29.2 pg (27.0-31.2); Mean Corpuscular Volume 94.7 fl (80-94); Mean Platelet Volume 8.3 fl (7.4-10.4); Monocytes # 0.6 K/mm3 (0.1-1.0); Monocytes % 5.2 % (1.7-9.3); Neutrophils # 7.1 K/mm3 (1.8-7.8); Neutrophils % 66.9 % (37.0-80.0); Platelet Count 364 K/mm3 (142-424); Red Blood Count 4.91 M/mm3 (4.60-6.20); Red Cell Distribution Width 14.8 % (11.5-17.5); White Blood Count 10.6 K/mm3 (4.8-10.8)
[2021-04-12 20:44] LABS: Chloride 104 mmol/L (98-107); Sodium 143 mmol/L (136-145)
[2021-04-12 20:45] LABS: Potassium 4.1 mmoL/L (3.5-5.1)
[2021-04-12 20:47] LABS: Blood Urea Nitrogen 11 mg/dl (9-20); Creatinine Clearance Estimated 155 mL/min (50-200); Estimated Glomerular Filt Rate 118 ml/min (>60); GFR (African American) 143 ML/MIN (>60)
[2021-04-12 20:48] LABS: Anion Gap 14.1 mEq/L (5-15); Carbon Dioxide 29 mmol/L (22.0-30.0); Glucose 88 mg/dl (74-100)
--- NOTE | 2021-04-12 20:50 | HMH.EDCP ---
ED Disposition Clinical Impression: Atypical chest pain Disposition: Home, Self-Care Condition on Discharge: Good Instructions: DI for Atypical Chest Pain Additional Instructions: see pcp for follow up as needed Prescriptions: Meloxicam [Mobic 15 mg tab] 15 mg PO DAILY #10 tab Transmission Status: Pending to [facility] #[id number] Referrals: Loretta Alvarez APRN [Primary Care Provider] - - Critical Care Critical Care Time: No Attestation: On 04/12/21, the high probability of a clinically significant, sudden or life threatening deterioration of the following system(s) required my full and direct attention, intervention and personal management. The time I documented below is in addition to time spent performing reported procedures but includes the following listed in this critical care notation. Medical Decision Making - Medical Records Medical records reviewed: Yes: I reviewed the patient's medical records. - Benny Inquiry Pt receiving controlled substance: No Vital Signs: 04/12/21 19:54 Pulse Rate [Right Brachial] 97 H Respiratory Rate 16 Blood Pressure [Right Arm] 141/85 H Blood Pressure Mean [Right Arm] 103 Blood Pressure Source [Right Arm] Automatic Cuff Blood Pressure Position [Right Arm] Sitting 02 Sat by Pulse Oximetry 97 Oxygen Delivery Method Room Air - Lab Data Lab results reviewed: Yes: I reviewed the patient's lab results. Lab Results 04/12/21 20:10: WBC 10.6, RBC 4.91, Hgb 14.3, Hct 46.5, MCV 94.7 H, MCH 29.2, MCHC 30.9 L, RDW 14.8, Plt Count 364, MPV 8.3, Neut % (Auto) 66.9, Lymph % (Auto) 26.5, [place] % (Auto) 5.2, Eos % (Auto) 0.7, Baso % (Auto) 0.8, Neut # (Auto) 7.1, Lymph # (Auto) 2.8, [place] # (Auto) 0.6, Eos # (Auto) 0.1, Baso # (Auto) 0.1 04/12/21 20:10: Sodium 143, Potassium 4.1, Chloride 104, Carbon Dioxide 29, Anion Gap 14.1, BUN 11, Creatinine 0.80, Estimated Creat Clear 155, Estimated GFR 118, Est GFR ( Amer) 143, Glucose 88, Calcium 9.0, Troponin I < 0.01 04/12/21 20:10: C-Reactive Protein 22.7 H Result diagrams: 04/12/21 20:10 04/12/21 20:10 Orders (Tests/Meds): ORDERS Category Date Time Status C-Reactive Protein Stat Lab 04/12/21 20:10 Results Erythrocyte Sedimentation Rate Stat Lab 04/12/21 20:10 Received Procalcitonin Stat Lab 04/12/21 20:10 Results Troponin I Q3H Lab 04/12/21 23:15 Ordered Troponin I Q3H Lab 04/13/21 02:15 Ordered - Radiology Data #1 Image(s): Chest Image Reviewed: Yes I have reviewed radiologist's interpretation Preliminary Findings: Normal/NAD - ECG Data Tracing #1 Normal Sinus Rhythm: Yes Ischemic changes: non-specific ST-T wave changes Medical Decision Narrative: atypical chest pain worse with mov and palpation with nl ekg and labs Chest Pain HPI - General Chief Complaint: Chest Pain Stated Complaint: Chest pain Time Seen by Provider: 04/12/21 20:50 Mode of Arrival: Ambulatory Source of Information: Patient, Medical Record Limitations: No Limitations Description of Symptoms (Recalled from ER Triage Doc. by RN): pt. states he started having chest pain this afternoon while at work at [employer]. They sent him to medical and did a EKG which state dhe was in NSR. He states they told him it was likely chest wall pain and to folllow up in the ED. - History of Present Illness HPI narrative: acute onset ot ant chest pain at work - was seen there with neg ekg and asked to follow up - pain worse with mov and palpation MD complaint: chest pain indicative of cardiac Onset (ago): hour(s) Duration: intermittent Activity at onset: light activity Pain location: substernal Severity: moderate Risk Factors for CAD: Family Hx of CAD Treatments prior to or on arrival for Cardiac Chest Pain: none - SHIN Score for Non-Stemi Age of Patient: <30 years old Heart Rate: 90-109 bpm Systolic Blood Pressure: 140-159 mmHg Serum Creatinine: 0.80-1.19 mg/dl CHF [place] Class: I-No CHF Other Risk Factors: None
[2021-04-12 20:57] LABS: C-Reactive Protein 22.7 mg/L (0-4)
[2021-04-12 21:02] LABS: Troponin I < 0.01 ng/ml (0.00-0.034)
[2021-04-12 21:15] LABS: Procalcitonin < 0.030 ng/mL (0.0-2.0)
[2021-04-12 21:22] VITALS: BP 132/70; PULSE 73; RESP 18; TEMP 36.7; O2SAT 98
[2021-04-12 21:26] VITALS: BP 146/99; PULSE 88; RESP 18; TEMP 36.7
[2021-04-12 21:56] LABS: Erythrocyte Sedimentation Rate 16 mm/hr (0-15)
== END 2021-04-12 21:24 | disposition home or self-care (01) ==
PROVIDERS: Emergency Provider Emergency Medicine; PCP Nurse Practitioner Family
DX: R07.89 Other chest pain (principal); K21.9 Gastro-esophageal reflux disease without esophagitis
CPT/HCPCS: 71046; 80048; 84145; 84484; 85025; 85651; 86140; 93005; 96374; 99282

== ENCOUNTER 2021-05-13 13:06 | Emergency (ER) | payer OTHER, SELFPAY ==
[2021-05-13 14:30] VITALS: BP 203/107; PULSE 89; RESP 16; TEMP 37.2; O2SAT 97; BMI 51.5
[2021-05-13 14:56] LABS: Adenovirus,PCR Not Detected (NotDetected); Bordetella Pertussis Not Detected (NotDetected); Chlamydophila Pneumoniae, PCR Not Detected (NotDetected); Coronavirus 19, PCR Not Detected (NotDetected); Coronavirus 229E Not Detected (NotDetected); Coronavirus NL63 Not Detected (NotDetected); Coronavirus OC43 Not Detected (NotDetected); Coronovirus HKU1,PCR Not Detected (NotDetected); Human Metapneumovirus Not Detected (NotDetected); Influenza A, PCR Not Detected (NotDetected); Influenza AH1, 2009 Not Detected (NotDetected); Influenza AH1, PCR Not Detected (NotDetected); Influenza AH3,PCR Not Detected (NotDetected); Influenza B, PCR Not Detected (NotDetected); Mycoplasma Pneumoniae, PCR Not Detected (NotDetected); Parainfluenza 1, PCR Not Detected (NotDetected); Parainfluenza 2, PCR Not Detected (NotDetected); Parainfluenza 3, PCR Not Detected (NotDetected); Parainfluenza 4, PCR Not Detected (NotDetected); Rhinovirus/Enterovirus Not Detected (NotDetected)
[2021-05-13 15:01] LABS: UTC Strep Screen (Rapid) Positive (Negative)
--- NOTE | 2021-05-13 15:01 | HMH.EDUTC ---
[facility] [place] Clinical Impression: Strep throat Disposition: Home, Self-Care Condition on Discharge: Good Instructions: DI for Strep Throat, Strep Throat Additional Instructions: Drink plenty of fluids. Take tylenol or ibuprofen for pain or fever. Take the medications as directed. Follow up with your regular doctor. GO TO THE ER FOR ANY WORSENING SYMPTOMS Throw your tooth brush away and get a new one. Prescriptions: Amoxicillin/Potassium Clav [Augmentin 875-125 Tablet] 1 tab PO Q12H 10 Days #20 tab Transmission Status: Pending to [facility] #[id number] Referrals: Loretta Alavrez APRN [Primary Care Provider] - Forms: Work/School Release Time of Disposition: 15:11 Medical Decision Making - Medical Records Medical records reviewed: No: I reviewed the patient's medical records. - Benny Inquiry Pt receiving controlled substance: No Vital Signs: 05/13/21 14:30 Temperature 98.9 F Temperature Source Oral Pulse Rate [Left Brachial] 89 Respiratory Rate 16 Blood Pressure [Left Arm] 203/107 H Blood Pressure Mean [Left Arm] 139 Blood Pressure Source [Left Arm] Automatic Cuff Blood Pressure Position [Left Arm] Sitting 02 Sat by Pulse Oximetry 97 Oxygen Delivery Method Room Air - Lab Data Lab results reviewed: Yes: I reviewed the patient's lab results. Lab Results 05/13/21 14:52: Strep Scn Rapid Clinic Positive A Orders (Tests/Meds): ORDERS Category Date Time Status Full Resp Panel w/COVID ([facility]) Routine Lab 05/13/21 14:14 Received [facility] [place] HPI - General Stated complaint: congested, sneezing, runny nose Time Seen by Provider: 05/13/21 15:01 Mode of Arrival: Ambulatory Source of Information: Patient Limitations: No Limitations Description of Symptoms (Recalled from Triage Doc. by RN): PATIENT C/O RUNNY NOSE, CONGESTION AND FATIGUE HEENT Symptoms (Recalled from RN notes): Yes Resp Symptoms (Recalled from RN notes): No Skin Symptoms (Recalled from RN notes): No MS Symptoms (Recalled from RN notes): No Functional Status (Recalled from RN notes): WNL - History of Present Illness Provider Complaint: He c/o sore throat, dry cough and feeling bad for the past 2 days. He has been tested for covid-19 at his work and it was negative. - Related Data Home Medications Medication Instructions Recorded Confirmed Famotidine [Pepcid 20mg Tablet] 20 mg PO HS 01/07/21 01/07/21 Previous Rx's Medication Instructions Recorded Ondansetron [Zofran 4mg ODT] 4 mg PO TIDP PRN #10 tab 01/07/21 Ondansetron [Zofran 4mg ODT] 4 mg PO Q8HP PRN #12 tab.rapdis 02/12/21 Meloxicam [Mobic 15 mg tab] 15 mg PO DAILY #10 tab 04/12/21 Amoxicillin/Potassium Clav 1 tab PO Q12H 10 Days #20 tab 05/13/21 [Augmentin 875-125 Tablet] Allergies Allergy/AdvReac Type Severity Reaction Status Date / Time No Known Allergies Allergy Verified 12/19/20 18:05 - Worker's Comp Is this a Worker's Comp case?: No [facility] History - Hepatitis A Screen Drug use history?: No High risk sexual behaviors?: No History of sexually transmitted infection?: No Currently employed?: No Childcare worker?: No Do you have indoor plumbing?: Yes Do you have electricity?: Yes Attestation statement:: This patient has been screened for Hepatitis A risk factors. I have reviewed the patient's past medical history: Yes Medical History: Reports:: Gastroesophageal Reflux Disease(GERD) Denies:: Cancer, Diabetes Mellitus Type 1, Diabetes Mellitus Type 2, Hypertension, Internal Pacemaker, MRSA, Seizures Other Medical History: Reports: Other. Denies: Blood Transfusion Reaction Comment: Super morbid obesity Laterality Cases: Right: Arthroscopy Knee Other Surgeries: Yes: No Previous Surgery, Other. No: Pacemaker Amputation: No Fractures: No Comment: Right knee - Social History Smoking Status: Never smoker Tobacco Type: smokeless tobacco Alcohol Intake: never Alcohol Intake Frequency:: a few times a
[2021-05-13 15:17] VITALS: BP 203/107; PULSE 89; RESP 16; TEMP 37.2; O2SAT 97
[2021-05-13 16:48] LABS: Respiratory Syncytial Virus Detected (NotDetected)
== END 2021-05-13 15:24 | disposition home or self-care (01) ==
PROVIDERS: Emergency Provider Nurse Practitioner Family; PCP Nurse Practitioner Family
DX: J02.0 Streptococcal pharyngitis (principal); B97.4 Respiratory syncytial virus as the cause of diseases classified elsewhere; K21.9 Gastro-esophageal reflux disease without esophagitis
CPT/HCPCS: 87581; 87632; 87798; 87880; 99202; C9803; G0463; U0003; U0005

== ENCOUNTER → 2021-07-16 15:17 | Outpatient (CLI) | payer OTHER, SELFPAY | PROVIDERS: PCP Internal Medicine Adolescent Medicine; Visit Provider Nurse Practitioner | DX: U07.1 COVID-19 (principal) | CPT/HCPCS: C9803; U0003; U0005 ==

== ENCOUNTER 2021-10-09 16:32 | Emergency (ER) | payer OTHER, SELFPAY ==
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
[2021-10-09 17:47] VITALS: BP 124/78; PULSE 85; RESP 16; TEMP 36.9; O2SAT 99; BMI 52.0
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
[2021-10-09 18:30] VITALS: BP 124/78; PULSE 85; RESP 16; TEMP 36.9
== END 2021-10-09 18:32 | disposition home or self-care (01) ==
PROVIDERS: Emergency Provider Nurse Practitioner; PCP Nurse Practitioner Family
DX: M62.830 Muscle spasm of back; M54.50 Low back pain, unspecified; V40.5XXA Car driver injured in collision with pedestrian or animal in traffic accident, initial encounter; Y92.488 Other paved roadways as the place of occurrence of the external cause
CPT/HCPCS: 72072; 72100; 99213; G0463

== ENCOUNTER 2021-10-11 13:00 | Outpatient (RCR) | payer OTHER, SELFPAY | END 2021-10-11 13:05 | disposition home or self-care (01) | LOC: OT 13:00 | PROVIDERS: Visit Provider Orthopaedic Surgery | DX: M25.511 Pain in right shoulder (principal); M25.311 Other instability, right shoulder | CPT/HCPCS: 97010; 97014; 97110; 97140; 97164; 97166; G0283 ==

== ENCOUNTER 2021-10-22 17:40 | Emergency (ER) | payer OTHER, SELFPAY ==
[2021-10-22 18:10] VITALS: BP 140/101; PULSE 85; RESP 16; TEMP 36.9; O2SAT 100; BMI 52.6
--- NOTE | 2021-10-22 18:23 | HMH.EDUTC ---
[facility] [place]ression: Right leg pain, Leg edema, right Disposition: Home, Self-Care Condition on Discharge: Good Instructions: DI for Leg Pain Additional Instructions: Go home and rest tonight. Stay off your feet and keep your right leg elevated as much time as possible. You will have the venous doppler of your right leg in the morning. Follow up with your primary care physician. GO TO THE ER FOR ANY WORSENING SYMPTOMS OR CONCERNS Referrals: Loretta Alvarez APRN [Primary Care Provider] - Forms: Work/School Release Time of Disposition: 18:31 Medical Decision Making - Medical Records Medical records reviewed: No: I reviewed the patient's medical records. - Benny Inquiry Pt receiving controlled substance: No Vital Signs: 10/22/21 18:10 10/22/21 18:54 Temperature 98.4 F 98.4 F Temperature Source Oral Pulse Rate 85 Pulse Rate [Left] 85 Respiratory Rate 16 16 Blood Pressure 140/101 H Blood Pressure [Right Arm] 140/101 H Blood Pressure Mean [Right Arm] 114 02 Sat by Pulse Oximetry 100 [facility] [place] - General Stated complaint: spot on back R Leg Time Seen by Provider: 10/22/21 18:23 Mode of Arrival: Ambulatory Source of Information: Patient Limitations: No Limitations Description of Symptoms (Recalled from Triage Doc. by RN): pt states 2-3 days ago he had a softball size bruise appear behind and slightly below his R knee. pt c/o a cramping pain. HEENT Symptoms (Recalled from RN notes): No Resp Symptoms (Recalled from RN notes): No Skin Symptoms (Recalled from RN notes): Yes MS Symptoms (Recalled from RN notes): No Functional Status (Recalled from RN notes): wnl - History of Present Illness Provider Complaint: He states that he has had right leg swelling for the past 2 days. He denies any known injury. He states that his right calf is swollen. - Related Data Home Medications Medication Instructions Recorded Confirmed Famotidine [Pepcid 20mg Tablet] 20 mg PO HS 01/07/21 01/07/21 Previous Rx's Medication Instructions Recorded Ondansetron [Zofran 4mg ODT] 4 mg PO TIDP PRN #10 tab 01/07/21 Ondansetron [Zofran 4mg ODT] 4 mg PO Q8HP PRN #12 tab.rapdis 02/12/21 Meloxicam [Mobic 15 mg tab] 15 mg PO DAILY #10 tab 04/12/21 Amoxicillin/Potassium Clav 1 tab PO Q12H 10 Days #20 tab 05/13/21 [Augmentin 875-125 Tablet] Cyclobenzaprine HCl [Flexeril 10mg 10 mg PO Q8HP PRN #15 tab 10/09/21 tablet] Etodolac 200 mg PO Q8HP PRN #20 cap 10/09/21 Allergies Allergy/AdvReac Type Severity Reaction Status Date / Time No Known Allergies Allergy Verified 12/19/20 18:05 - Worker's Comp Is this a Worker's Comp case?: No [facility] History - Hepatitis A Screen Drug use history?: No High risk sexual behaviors?: No History of sexually transmitted infection?: No Currently employed?: No Childcare worker?: No Do you have indoor plumbing?: Yes Do you have electricity?: Yes Attestation statement:: This patient has been screened for Hepatitis A risk factors. I have reviewed the patient's past medical history: Yes Medical History: Reports:: Gastroesophageal Reflux Disease(GERD) Denies:: Cancer, Diabetes Mellitus Type 1, Diabetes Mellitus Type 2, Hypertension, Internal Pacemaker, MRSA, Seizures Other Medical History: Reports: Other. Denies: Blood Transfusion Reaction Comment: Super morbid obesity Laterality Cases: Right: Arthroscopy Knee Other Surgeries: Yes: No Previous Surgery, Other. No: Pacemaker Amputation: No Fractures: No Comment: Right knee - Social History Smoking Status: Never smoker Tobacco Type: smokeless tobacco Alcohol Intake: never Alcohol Intake Frequency:: a few times a month Substance Use Type: denies use, marijuana Occupational Status: employed Housing: house Household Members: family Family Hx:: Coronary Artery Disease, Heart Attack Comment: [id number]-[place]@40's ROS Obtained: Yes All systems reviewed & no additional complaints -
[2021-10-22 18:54] VITALS: BP 140/101; PULSE 85; RESP 16; TEMP 36.9
== END 2021-10-22 18:55 | disposition home or self-care (01) ==
PROVIDERS: Emergency Provider Nurse Practitioner Family; PCP Nurse Practitioner Family
DX: M79.604 Pain in right leg (principal); R60.0 Localized edema; K21.9 Gastro-esophageal reflux disease without esophagitis
CPT/HCPCS: 99212; G0463

== ENCOUNTER → 2021-10-23 12:13 | Outpatient (CLI) | payer OTHER, SELFPAY ==
--- NOTE | 2021-10-23 | CA_ITS ---
FINAL REPORT TECHNIQUE: Color Doppler, duplex Doppler and compression sonography of the right lower extremity venous system was performed. CLINICAL HISTORY: Right calf pain and large bruise, redness. no injury or trauma FINDINGS: There is no evidence of deep venous thrombosis from the level of the groin to the calf. The veins are patent and compressible. IMPRESSION: No evidence of deep venous thrombosis right lower extremity. Reviewed, Interpreted and Dictated by Jason Hernandez III, MD Transcribed by Carly James Authenticated by Jason Hernandez III, MD on 10/23/2021 03:29:01 PM [facility]
== END ==
PROVIDERS: PCP Nurse Practitioner Family; Visit Provider Nurse Practitioner Family
DX: M79.661 Pain in right lower leg (principal); R60.0 Localized edema
CPT/HCPCS: 93971

== ENCOUNTER 2021-11-13 19:49 | Emergency (ER) | payer OTHER, SELFPAY ==
--- NOTE | 2021-11-13 20:41 | HMH.EDUTC ---
[facility] [place] Impression: Viral syndrome Fatigue Qualifiers: Fatigue type: unspecified Qualified Code(s): R53.83 - Other fatigue Disposition: Home, Self-Care Condition on Discharge: Good Instructions: DI for Viral Syndrome Additional Instructions: Go home and rest. Follow up with your regular doctor if your symptoms continue. GO TO THE ER FOR ANY WORSENING SYMPTOMS OR CONCERN, ESPECIALLY BOWEL OR BLADDER ISSUES, SADDLE AREA NUMBNESS, FEVER, ETC Referrals: Loretta Alvarez APRN [Primary Care Provider] - Forms: Work/School Release Time of Disposition: 21:25 Medical Decision Making - Medical Records Medical records reviewed: No: I reviewed the patient's medical records. - Benny Inquiry Pt receiving controlled substance: No Vital Signs: 11/13/21 20:51 11/13/21 20:53 11/13/21 21:26 Temperature 98.7 F 98.7 F Temperature Source Oral Pulse Rate 82 Pulse Rate [Orthostatic Lying] 74 Pulse Rate [Orthostatic Sitting] 82 Pulse Rate [Orthostatic Standing] 87 Respiratory Rate 16 16 Blood Pressure 148/83 H Blood Pressure [Orthostatic Lying] 127/74 Blood Pressure [Orthostatic Sitting] 148/83 H Blood Pressure [Orthostatic Standing] 140/88 02 Sat by Pulse Oximetry 100 - Lab Data Lab results reviewed: Yes: I reviewed the patient's lab results. Lab Results 11/13/21 20:47: Group A Strep Rapid Negative 11/13/21 20:49: Influenza Type A Ag Negative, Influenza Type B Ag Negative [facility] [place] - General Stated complaint: pT GOT DIZZY AT WORK WANTS TO BE CHECK Time Seen by Provider: 11/13/21 20:41 - History of Present Illness Provider Complaint: He states that earlier today he had a period of dizziness at his work. He was sent home. So he came here to be checked. He denies any complaints at this time. - Related Data Home Medications Medication Instructions Recorded Confirmed Famotidine [Pepcid 20mg Tablet] 20 mg PO HS 01/07/21 01/07/21 Previous Rx's Medication Instructions Recorded Ondansetron [Zofran 4mg ODT] 4 mg PO TIDP PRN #10 tab 01/07/21 Ondansetron [Zofran 4mg ODT] 4 mg PO Q8HP PRN #12 tab.rapdis 02/12/21 Meloxicam [Mobic 15 mg tab] 15 mg PO DAILY #10 tab 04/12/21 Amoxicillin/Potassium Clav 1 tab PO Q12H 10 Days #20 tab 05/13/21 [Augmentin 875-125 Tablet] Cyclobenzaprine HCl [Flexeril 10mg 10 mg PO Q8HP PRN #15 tab 10/09/21 tablet] Etodolac 200 mg PO Q8HP PRN #20 cap 10/09/21 Allergies Allergy/AdvReac Type Severity Reaction Status Date / Time No Known Allergies Allergy Verified 12/19/20 18:05 [facility] History - Hepatitis A Screen Attestation statement:: This patient has been screened for Hepatitis A risk factors. I have reviewed the patient's past medical history: Yes Medical History: Reports:: Gastroesophageal Reflux Disease(GERD) Denies:: Cancer, Diabetes Mellitus Type 1, Diabetes Mellitus Type 2, Hypertension, Internal Pacemaker, MRSA, Seizures Other Medical History: Reports: Other. Denies: Blood Transfusion Reaction Comment: Super morbid obesity Laterality Cases: Right: Arthroscopy Knee Other Surgeries: Yes: No Previous Surgery, Other. No: Pacemaker Amputation: No Fractures: No Comment: Right knee - Social History Smoking Status: Never smoker Tobacco Type: smokeless tobacco Alcohol Intake: never Alcohol Intake Frequency:: a few times a month Substance Use Type: denies use, marijuana Occupational Status: employed Housing: house Household Members: family Family Hx:: Coronary Artery Disease, Heart Attack Comment: Uncle-[place]@40's ROS Obtained: Yes All systems reviewed & no additional complaints - Constitutional Constitutional: Denies chills, Denies fever(s) - Eyes Eyes: Denies eye discharge - ENT Ears, Nose, Mouth, and Throat: Denies dizziness, Denies otalgia, Denies vertigo/dizziness - Cardiovascular Cardiovascular: Denies chest pain - Respiratory Respiratory: Denies chest congestion, Denies
[2021-11-13 20:51] VITALS: RESP 16; TEMP 37.1; O2SAT 100; BMI 49.6
[2021-11-13 20:53] VITALS: BP 127/74; BP 140/88; BP 148/83; PULSE 74; PULSE 82; PULSE 87
--- NOTE | 2021-11-13 20:54 | ECG_ITS ---
APPROVED REPORT Exam: Resting ECG HR:78 bpm ECG Measurements Heart Rate 78 AXES ME 168 P 26 QRSd 105 QRS 36 QT 359 T -3 QTc 392 Conclusion SINUS RHYTHM LOW QRS VOLTAGE IN PRECORDIAL LEADS [QRS DEFLECTION < 1.0 mV IN CHEST LEADS] BORDERLINE ECG UNCONFIRMED REPORT Electronically signed by : Miguel Arguelles MD 11/14/2021 07:59:06
[2021-11-13 21:00] LABS: UTC Influenza A Antigen Negative (Negative); UTC Influenza B Antigen Negative (Negative)
[2021-11-13 21:03] LABS: Strep Scrn Group A (Rapid) Negative (Negative)
[2021-11-13 21:26] VITALS: BP 148/83; PULSE 82; RESP 16; TEMP 37.1
== END 2021-11-13 21:31 | disposition home or self-care (01) ==
PROVIDERS: Emergency Provider Nurse Practitioner Family; PCP Nurse Practitioner Family
DX: R42 Dizziness and giddiness (principal); R94.31 Abnormal electrocardiogram [ECG] [EKG]; R11.2 Nausea with vomiting, unspecified; R53.83 Other fatigue; K21.9 Gastro-esophageal reflux disease without esophagitis; E66.01 Morbid (severe) obesity due to excess calories; Z79.899 Other long term (current) drug therapy; Z68.42 Body mass index [BMI] 45.0-49.9, adult; Z82.49 Family history of ischemic heart disease and other diseases of the circulatory system
CPT/HCPCS: 87430; 87804; 93005; 99213; G0463

== ENCOUNTER 2022-01-22 13:33 | Emergency (ER) | payer OTHER, SELFPAY ==
[2022-01-22 13:57] VITALS: BP 130/76; PULSE 83; RESP 17; TEMP 36.8; O2SAT 98; BMI 51.5
--- NOTE | 2022-01-22 13:59 | XR_ITS ---
FINAL REPORT CLINICAL HISTORY: pain COMPARISON: October 09, 2021 FINDINGS: THORACIC SPINE SERIES. AP and lateral views were obtained. There is no acute fracture. There are mild degenerative changes with osteophytes. There is no malalignment. IMPRESSION: Mild degenerative change with osteophytes. Reviewed, Interpreted and Dictated by Jason Hernandez III, MD Transcribed by Pedrito Bhandari Authenticated and [facility]
--- NOTE | 2022-01-22 14:08 | HMH.EDUTC ---
[facility] [place] Clinical Impression: Thoracic back pain Qualifiers: Chronicity: acute Back pain laterality: unspecified Qualified Code(s): M54.6 - Pain in thoracic spine Back strain Qualifiers: Encounter type: initial encounter Qualified Code(s): S39.012A - Strain of muscle, fascia and tendon of lower back, initial encounter Disposition: Home, Self-Care Condition on Discharge: Good Instructions: Cyclobenzaprine, DI for Thoracic Back Pain, Thoracic Back Pain Additional Instructions: Go home and rest. It would be best if you rested tomorrow too. No heavy lifting. No twisting. Take the oral medications as directed. The muscle relaxer (cyclobenzaprine--Flexeril) will make you drowsy, so don't drive or operate heavy machinery after taking it. Don't start the oral steroids (medrol dose pack) until tomorrow, since you had the shots in here today. Follow up with your regular doctor. GO TO THE ER FOR ANY WORSENING SYMPTOMS OR CONCERN, ESPECIALLY BOWEL OR BLADDER ISSUES, SADDLE AREA NUMBNESS, FEVER, ETC Prescriptions: Cyclobenzaprine HCl [Cyclobenzaprine 10mg Tab] 10 mg PO BIDP PRN #20 tab PRN Reason: Muscle Spasm Transmission Status: Received by [employer] # methylPREDNISolone [Medrol] 4 mg PO DIRECTED 6 Days #21 packet Transmission Status: Received by [employer] #[id number] Referrals: Loretta Alvarez APRN [Primary Care Provider] - Forms: Work/School Release Time of Disposition: 14:40 Medical Decision Making - Medical Records Medical records reviewed: No: I reviewed the patient's medical records. - Benny Inquiry Pt receiving controlled substance: No Vital Signs: 01/22/22 13:57 01/22/22 14:41 Temperature 98.3 F 98.3 F Temperature Source Oral Pulse Rate 83 Pulse Rate [Left] 83 Respiratory Rate 17 17 Blood Pressure 130/76 Blood Pressure [Right Arm] 130/76 Blood Pressure Mean [Right Arm] 94 02 Sat by Pulse Oximetry 98 Orders (Tests/Meds): ED MEDICATIONS Discontinued Medications Generic Name Dose Route Start Last Admin Trade Name Freq PRN Reason Stop Dose Admin Ketorolac Tromethamine 60 mg 01/22/22 14:32 01/22/22 14:41 Ketorolac 60mg/2ml Vial IM 01/22/22 14:33 60 mg ONCE ONE Administration Methylprednisolone Sodium Succinate 125 mg 01/22/22 14:32 01/22/22 14:40 Methylprednisolone Sod Succ 125mg Vial IM 01/22/22 14:33 125 mg ONCE ONE Administration [facility] [place] - General Stated complaint: back pain Time Seen by Provider: 01/22/22 14:08 Description of Symptoms (Recalled from Triage Doc. by RN): patient comes in for mid level back pain. symptoms began yesterday while at work, although he did nothing unusal at work. HEENT Symptoms (Recalled from RN notes): No Resp Symptoms (Recalled from RN notes): No Skin Symptoms (Recalled from RN notes): No MS Symptoms (Recalled from RN notes): Yes Functional Status (Recalled from RN notes): wnl - History of Present Illness Provider Complaint: He states that since yesterday he has had middle back pain. He denies any known injury or trigger for his pain. He has had an episode like this in the past that he had to take medication to get better. HE denies any numbness or tingling. - Related Data Previous Rx's Medication Instructions Recorded Cyclobenzaprine HCl 10 mg PO BIDP PRN #20 tab 01/22/22 [Cyclobenzaprine 10mg Tab] methylPREDNISolone [Medrol] 4 mg PO DIRECTED 6 Days #21 01/22/22 packet Allergies Allergy/AdvReac Type Severity Reaction Status Date / Time No Known Allergies Allergy Verified 01/22/22 14:00 - Worker's Comp Is this a Worker's Comp case?: No [facility] History - Hepatitis A Screen Attestation statement:: This patient has been screened for Hepatitis A risk factors. I have reviewed the patient's past medical history: Yes Medical History: Reports:: Gastroesophageal Reflux Disease(GERD) Denies:: Cancer, Diabetes Mellitus Type 1, Diabetes Mellitu
[2022-01-22 14:41] VITALS: BP 130/76; PULSE 83; RESP 17; TEMP 36.8
== END 2022-01-22 14:53 | disposition home or self-care (01) ==
PROVIDERS: Emergency Provider Nurse Practitioner Family; PCP Nurse Practitioner Family
DX: S39.012A Strain of muscle, fascia and tendon of lower back, initial encounter (principal)
CPT/HCPCS: 72072; 96372; 99212; G0463

== ENCOUNTER 2022-02-03 09:05 | Emergency (ER) | payer OTHER, SELFPAY ==
[2022-02-03 09:10] VITALS: BP 128/82; PULSE 82; RESP 18; TEMP 36.6; O2SAT 96; BMI 51.5
--- NOTE | 2022-02-03 09:22 | HMH.EDUTC ---
[facility] [place] Clinical Impression: Viral syndrome, Exposure to COVID-19 virus Disposition: Home, Self-Care Condition on Discharge: Good Instructions: DI for COVID-19 (Suspected or Confirmed ), Preventing the Spread of Coronavirus Discharge Instructions, DI for Viral Syndrome Additional Instructions: *Monitor Temp, Over the counter Motrin or Tylenol as directed/as needed Tylenol every 4 hours and Motrin every 6 hours (as long as your family doctor has told you that you can take it) for fever or pain. and straight to ER if unable to lower temp less than 101.0 after medication given *Warm salt water gargles may help to soothe the throat *Throat Lozenges *Warm fluids like tea with honey may help to soothe the throat *Sleep elevated *Humidifier/Vaporizer Follow up IMMEDIATELY for new or worsening symptoms or no Noticeable improvement over the next 48-72 hours. 911 for difficulty breathing or swallowing You were tested for today for COVID19 your test result should be back in the next 24-48 hours, you may Check your results on the [facility] My Health Portal Make sure to take your Vitamins Vit. C Vit D and Zinc if you can take them Referrals: Loretta Alvarez APRN [Primary Care Provider] - As needed Forms: Work/School Release Time of Disposition: 09:28 Medical Decision Making - Benny Inquiry Pt receiving controlled substance: No Benyn was queried for this patient: No Vital Signs: 02/03/22 09:10 Temperature 97.9 F Temperature Source Oral Pulse Rate [Left Brachial] 82 Respiratory Rate 18 Blood Pressure [Left Arm] 128/82 Blood Pressure Mean [Left Arm] 97 Blood Pressure Source [Left Arm] Automatic Cuff Blood Pressure Position [Left Arm] Sitting 02 Sat by Pulse Oximetry 96 Oxygen Delivery Method Room Air Orders (Tests/Meds): ORDERS Category Date Time Status Covid-19 Nasal PCR ([facility]) Routine Lab 02/03/22 09:18 Ordered [facility] [place] H[place] - General Stated complaint: KING, fatigue, chest congestion, SOA, chills Time Seen by Provider: 02/03/22 09:22 Mode of Arrival: Ambulatory Source of Information: Patient Limitations: No Limitations Description of Symptoms (Recalled from Triage Doc. by RN): PATIENT C/O HEAVY BREATHING, FATIGUE, AND HEADACHES SINCE YESTERDAY. HE STATES A PERSON HE WAS AROUND ALL LAST WEEK TESTED POSITIVE FOR COVID ON THURSDAY HEENT Symptoms (Recalled from RN notes): Yes Resp Symptoms (Recalled from RN notes): Yes Skin Symptoms (Recalled from RN notes): No MS Symptoms (Recalled from RN notes): No Functional Status (Recalled from RN notes): WNL - History of Present Illness Provider Complaint: Patient state that he was recently around someone that tested positive for COVID States that he woke up this morning feeling achy all over, tired, fatigue, breathing heavy because he felt like he couldnt breath through his nose, cough and headache State that he wanted to get tested for COVID - Related Data Home Medications Medication Instructions Recorded Confirmed Omeprazole [Omeprazole 20mg 20 mg PO DAILY 02/03/22 02/03/22 Capsule] Allergies Allergy/AdvReac Type Severity Reaction Status Date / Time No Known Allergies Allergy Verified 01/22/22 14:00 - Worker's Comp Is this a Worker's Comp case?: No [facility] History - Hepatitis A Screen Attestation statement:: This patient has been screened for Hepatitis A risk factors. I have reviewed the patient's past medical history: Yes Medical History: Reports:: Gastroesophageal Reflux Disease(GERD) Denies:: Cancer, Diabetes Mellitus Type 1, Diabetes Mellitus Type 2, Hypertension, Internal Pacemaker, MRSA, Seizures Other Medical History: Reports: Other. Denies: Blood Transfusion Reaction Comment: Super morbid obesity Laterality Cases: Right: Arthroscopy Knee, Arthroscopy Shoulder Other Surgeries: Yes: No Previous Surgery, Other. No: Pacemaker Amputation: No Fractures: No Comment: Right knee - Social History Smoking Status: Never smoker
[2022-02-03 09:33] VITALS: BP 128/82; PULSE 82; RESP 18; TEMP 36.6; O2SAT 96
== END 2022-02-03 09:35 | disposition home or self-care (01) ==
PROVIDERS: Emergency Provider Nurse Practitioner; PCP Nurse Practitioner Family
DX: B34.9 Viral infection, unspecified (principal)
CPT/HCPCS: 99212; C9803; G0463; U0003; U0005

== ENCOUNTER 2022-03-17 06:09 | Emergency (ER) | payer OTHER, SELFPAY ==
[2022-03-17 06:16] VITALS: BMI 52.9
--- NOTE | 2022-03-17 06:17 | XR_ITS ---
PROCEDURE INFORMATION: Exam: XR Chest Exam date and time: 03/17/2022 6:15 AM Age: 26 years old Clinical indication: Cough and other: Sore throat; Additional info: Cough, sore throat TECHNIQUE: Imaging protocol: Radiologic exam of the chest. Views: 2 views. COMPARISON: CR XR CHEST 2V 04/12/2021 8:25 PM FINDINGS: Lungs: No consolidation. Pleural spaces: No significant pleural effusion. No pneumothorax. Heart/Mediastinum: No cardiomegaly. Bones/joints: No displaced fracture. Soft tissues: Unremarkable. IMPRESSION: No definite acute cardiopulmonary disease.
[2022-03-17 06:23] VITALS: BP 147/96; PULSE 102; RESP 16; TEMP 37.8; O2SAT 100; BMI 52.9
[2022-03-17 06:28] LABS: Influenza A, PCR Not Detected (NotDetected); Influenza B, PCR Not Detected (NotDetected)
[2022-03-17 06:40] LABS: Strep Scrn Group A (Rapid) Negative (Negative)
[2022-03-17 06:57] LABS: Coronavirus 19, PCR Detected (NotDetected)
[2022-03-17 07:23] VITALS: BP 139/85; PULSE 85; O2SAT 93
[2022-03-17 07:30] VITALS: BP 137/89; PULSE 86; O2SAT 94
--- NOTE | 2022-03-17 07:55 | HMH.EDURI ---
Discharge Plan Disposition Patient Disposition: Home, Self-Care Condition: Good Chief Complaint: Upper Respiratory Infection Prescriptions Prescriptions: No Action omeprazole 20 MG capsule,delayed release(DR/EC) 20 mg PO DAILY sertraline [Zoloft] 50 mg tablet 50 mg PO DAILY Referrals Follow up/Referrals: Loretta Alvarez APRN [Primary Care Provider] - See instructions Clinical Impressions Clinical Impression: COVID-19 Stand Alone Forms Stand Alone Forms: Work/School Release Instructions Patient Instructions: DI for COVID-19 (Suspected or Confirmed ) Discharge ED Provider: Herson Rendon URI/Sore Throat HPI General Chief Complaint: Upper Respiratory Infection Stated Complaint: Cough,sore throat,lower back pain,fever Time Seen by Provider: 03/17/22 07:55 Mode of Arrival: Ambulatory Source of Information: Patient and Medical Record Limitations: No Limitations Description of Symptoms (Recalled from ER Triage Doc. by RN): FEVER OF 99 AT HOME. TOOK MOTRIN AT HOME PRIOR TO ARRIVAL. COUGH. History of Present Illness HPI Narrative: uri sx with cough and fever MD Complaint: fever and cough Onset (ago): day(s) Severity: moderate Relieving factors: OTC cold medicine Able to tolerate fluids by mouth: Yes Associated symptoms: myalgias Related Data Home Medications Medication Instructions Recorded Confirmed omeprazole 20 mg capsule,delayed 20 mg PO DAILY GERD 02/03/22 03/17/22 release sertraline 50 mg tablet (Zoloft) 50 mg PO DAILY Depression 03/17/22 03/17/22 Allergies Allergy/AdvReac Type Severity Reaction Status Date / Time No Known Allergies Allergy Verified 03/14/22 15:14 [facility] Medical History (Updated 03/17/22 @ 08:01 by Herson Rendon MD) Abnormal EKG Dizziness Major depressive disorder Nausea and vomiting Posttraumatic stress disorder Social History (Updated 03/14/22 @ 15:16 by Nallely Mcfarlane APRN) Smoking Status: Never smoker second hand exposure: No alcohol intake: never substance use type: denies use and marijuana current occupational status: other household members: family housing: house number of children: 0 current occupation: [employer] caffeine: Yes ROS Obtained: Yes All systems reviewed & no additional complaints except as documented Physical Exam General General appearance: alert and obese Head Head exam: atraumatic Eye Eye exam: Present PERRL and EOMI ENT ENT exam: Present normal oropharynx Neck Neck exam: Present trachea midline Respiratory Respiratory exam: Present normal lung sounds bilaterally Cardiovascular Cardiovascular exam: Present regular rate Abdominal Exam Abdominal exam: Present soft Extremities Exam Extremities exam: Present full ROM Neurological Exam Neurological exam: Present alert, oriented X3 and CN II-XII intact Psychiatric Psychiatric exam: Present normal affect Skin Skin exam: Absent rash Medical Decision Making Medical Records Medical records reviewed: Yes I reviewed the patient's medical records. Benny Inquiry Pt receiving controlled substance: No Vital Signs: 03/17/22 06:23 03/17/22 07:23 Temperature 100.1 F H Temperature Source Oral Pulse Rate 85 Pulse Rate [Left Radial] 102 H Respiratory Rate 16 Blood Pressure 139/85 Blood Pressure [Right Arm] 147/96 H Blood Pressure Mean [Right Arm] 113 Blood Pressure Source [Right Arm] Automatic Cuff 02 Sat by Pulse Oximetry 100 93 L Oxygen Delivery Method Room Air Room Air Lab Data Lab results reviewed: Yes I reviewed the patient's lab results. Lab Results 03/17/22 06:18: Group A Strep Rapid Negative 03/17/22 06:18: SARS-CoV-2 (PCR) Detected A, Influenza A Untype (PCR) Not detected, Influenza Type B (PCR) Not detected Orders (Tests/Meds): ED MEDICATIONS Discontinued Medications Generic Name Dose Route Start Last Admin Trade Name Rambo PRN Reason Stop Dose Admin Acetaminophen 1,000 mg 03/17
[2022-03-17 08:00] VITALS: BP 137/89; PULSE 85; RESP 18; TEMP 37.2; O2SAT 97
== END 2022-03-17 08:04 | disposition home or self-care (01) ==
PROVIDERS: Emergency Provider Emergency Medicine; PCP Nurse Practitioner Family
DX: U07.1 COVID-19 (principal)
CPT/HCPCS: 71046; 87430; 99283; C9803; U0003; U0005

== ENCOUNTER 2022-08-09 12:39 | Emergency (ER) | payer OTHER, SELFPAY ==
[2022-08-09 12:45] VITALS: BP 146/92; PULSE 93; RESP 18; TEMP 36.6; O2SAT 98; BMI 63.2
--- NOTE | 2022-08-09 13:08 | EXP.UTC ---
Discharge Plan Disposition Patient Disposition: Home, Self-Care Condition: Good Prescriptions Prescriptions: No Action omeprazole 20 MG capsule,delayed release(DR/EC) 20 mg PO DAILY Referrals Follow up/Referrals: Loretta Alvarez APRN [Primary Care Provider] - See instructions Activity Restrictions/Add. Instructions Additional Instructions/Restrictions: No sign of a bacterial infection. Likely viral. Viruses can take 7-14 days to run their course. Nasal saline and bulb syringe or nose Irma to remove nasal drainage to help with nasal congestion. Hard to eat, drink, sleep with nasal congestion so important to keep this cleaned out. Monitor temp. Tylenol or Motrin as needed for pain or fever Encourage fluids, water, Gatorade, Powerade, Pedialyte if /toddler/child Warm salt water gargles Warm fluids Sore throat lozenges Sleep elevated Humidifier/vaporizer Follow-up immediately for new or worsening symptoms or no noticeable improvement over the next 48-72 hours. Clinical Impressions Clinical Impression: Viral upper respiratory infection Instructions Patient Instructions: DI for Viral Upper Respiratory Infection -- Adult Discharge ED Provider: Elaina ([facility])[place] [facility] [place] General Stated complaint: Congestion drainage weakness Mode of Arrival: Ambulatory Source of Information: Patient Limitations: No Limitations Time Seen by Provider: 08/09/22 13:08 Description of Symptoms (Recalled from Triage Doc. by RN): PATIENT C/O CONGESTION, RUNNY NOSE, SNEEZING, AND BODY ACHES SINCE YESTERDAY HEENT Symptoms (Recalled from RN notes): Yes Resp Symptoms (Recalled from RN notes): No Skin Symptoms (Recalled from RN notes): No MS Symptoms (Recalled from RN notes): No Functional Status (Recalled from RN notes): WNL History of Present Illness Provider Complaint: 27 yr old male presents for cough,sneezing,body aches, sore throat and congestion since yesterday Related Data Home Medications Medication Instructions Recorded Confirmed omeprazole 20 mg capsule,delayed 20 mg PO DAILY GERD 02/03/22 08/09/22 release Allergies Allergy/AdvReac Type Severity Reaction Status Date / Time No Known Allergies Allergy Verified 03/14/22 15:14 Worker's Comp Is this a Worker's Comp case?: No [facility] Disclaimer: The information contained in this section may have been updated after the patient was seen, as this information can be updated by other users. Medical History , FIELD ARTILLERY BASIC) Abnormal EKG Dizziness Major depressive disorder Nausea and vomiting Posttraumatic stress disorder Social History , FIELD ARTILLERY BASIC) Smoking Status: Never smoker second hand exposure: No alcohol intake: never substance use type: denies use and marijuana current occupational status: other Travel in the last 8 weeks: None household members: family housing: house number of children: 0 current occupation: [employer] caffeine: Yes ROS Obtained: Yes All systems reviewed & no additional complaints except as documented Constitutional Constitutional: Reports system reviewed and no additional complaints, except as documented, Reports as per HPI, Reports body ache and Reports chills Eyes Eyes: Reports system reviewed and no additional complaints, except as documented ENT Ears, Nose, Mouth, and Throat: Reports system reviewed and no additional complaints, except as documented, Reports nasal congestion, Reports nasal discharge and Reports sore throat Cardiovascular Cardiovascular: Reports system reviewed and no additional complaints, except as documented Respiratory Respiratory: Reports system reviewed and no additional complaints, except as documented and Reports cough Gastrointestinal Gastrointestingal: Reports system reviewed and no additional complaints, except as documented Integumentary/Breasts Skin/Breast: Reports system revie
[2022-08-09 13:10] VITALS: BP 146/92; PULSE 93; RESP 18; TEMP 36.6; O2SAT 98
[2022-08-09 13:22] LABS: UTC Influenza A Antigen Negative (Negative); UTC Influenza B Antigen Negative (Negative)
[2022-08-09 13:22] LABS: UTC Strep Screen (Rapid) Negative (Negative)
== END 2022-08-09 13:15 | disposition home or self-care (01) ==
PROVIDERS: Emergency Provider Nurse Practitioner Family; PCP Nurse Practitioner Family
DX: J06.9 Acute upper respiratory infection, unspecified (principal)
CPT/HCPCS: 87804; 87880; 99212; G0463

== ENCOUNTER 2022-08-10 09:31 | Emergency (ER) | payer OTHER, SELFPAY ==
[2022-08-10 09:40] VITALS: BP 159/103; PULSE 91; RESP 16; TEMP 36.8; O2SAT 96; BMI 51.5
--- NOTE | 2022-08-10 09:47 | EXP.UTC ---
Discharge Plan Disposition Patient Disposition: Home, Self-Care Condition: Good Prescriptions Prescriptions: New amoxicillin-pot clavulanate 875-125 mg Tablet 1 tab PO Q12H Qty: 20 0RF ibuprofen [IBU] 800 mg tablet 800 mg PO TIDP PRN (Reason: Moderate Pain) Qty: 20 0RF No Action omeprazole 20 MG capsule,delayed release(DR/EC) 20 mg PO DAILY Referrals Follow up/Referrals: Loretta Alvarez APRN [Primary Care Provider] - See instructions Activity Restrictions/Add. Instructions Additional Instructions/Restrictions: Make sure to call tomorrow morning and get appointment with Dentist Take medication as prescribed Return if needed Striaght to ER if any life threatening sympotms Clinical Impressions Clinical Impression: Abscess, dental Instructions Patient Instructions: Tooth Abscess, DI for Tooth Abscess, Ibuprofen Discharge ED Provider: Kristine Jean Kyler [facility] HPI General Stated complaint: RT mouth pain Time Seen by Provider: 08/10/22 09:47 History of Present Illness Provider Complaint: Patient states that he has several bad teeth on his right top gumlines States that he has been having a tooth hurting him and for the last couple of days he has had some swelling in his right upper gumline so this morning his swelling was worse so he came in Related Data Home Medications Medication Instructions Recorded Confirmed omeprazole 20 mg capsule,delayed 20 mg PO DAILY GERD 02/03/22 08/09/22 release Previous Rx's Medication Instructions Recorded amoxicillin 875 mg-potassium 1 tab PO Q12H #20 tabs 08/10/22 clavulanate 125 mg tablet ibuprofen 800 mg tablet (IBU) 800 mg PO TIDP PRN Moderate Pain 08/10/22 #20 tabs Allergies Allergy/AdvReac Type Severity Reaction Status Date / Time No Known Allergies Allergy Verified 03/14/22 15:14 [facility] Disclaimer: The information contained in this section may have been updated after the patient was seen, as this information can be updated by other users. Medical History (Updated 08/10/22 @ 09:56 by Kristine Jean APRN) Abnormal EKG Anxiety Dizziness Major depressive disorder Nausea and vomiting Posttraumatic stress disorder Social History JUAN) Smoking Status: Never smoker second hand exposure: No alcohol intake: never substance use type: denies use and marijuana current occupational status: other Travel in the last 8 weeks: None household members: family housing: house number of children: 0 current occupation: [employer] caffeine: Yes ROS Obtained: Yes All systems reviewed & no additional complaints except as documented and Yes Systems reviewed as appropriate & no additional complaints except as documented Constitutional Constitutional: Reports system reviewed and no additional complaints, except as documented and Reports as per HPI ENT Ears, Nose, Mouth, and Throat: Reports system reviewed and no additional complaints, except as documented, Reports as per HPI and Reports dental pain Cardiovascular Cardiovascular: Reports system reviewed and no additional complaints, except as documented and Reports as per HPI Respiratory Respiratory: Reports system reviewed and no additional complaints, except as documented and Reports as per HPI Gastrointestinal Gastrointestingal: Reports system reviewed and no additional complaints, except as documented and as per HPI Physical Exam General General appearance: alert and in no apparent distress Expanded ENT Exam Teeth exam: Present dental caries (swelling and redness to right upper gumline) Respiratory Respiratory exam: Present normal lung sounds bilaterally; Absent respiratory distress or wheezes Cardiovascular Cardiovascular exam: Present regular rate, normal rhythm and normal heart sounds Neurological Exam Neurological exam: Present alert, oriented X3 and normal gait Medical Decision Making Benny Inquiry Pt r
[2022-08-10 10:00] VITALS: BP 159/103; PULSE 91; RESP 16; TEMP 36.8; O2SAT 96
== END 2022-08-10 10:04 | disposition home or self-care (01) ==
PROVIDERS: Emergency Provider Nurse Practitioner; PCP Nurse Practitioner Family
DX: K04.7 Periapical abscess without sinus (principal)
CPT/HCPCS: 99212; 99213; G0463

== ENCOUNTER 2022-08-11 12:46 | Emergency (ER) | payer OTHER, SELFPAY ==
--- NOTE | 2022-08-11 13:59 | EXP.UTC ---
Discharge Plan Disposition Patient Disposition: Home, Self-Care Condition: Good Prescriptions Prescriptions: No Action omeprazole 20 MG capsule,delayed release(DR/EC) 20 mg PO DAILY amoxicillin-pot clavulanate 875-125 mg Tablet 1 tab PO Q12H Qty: 20 0RF ibuprofen [IBU] 800 mg tablet 800 mg PO TIDP PRN (Reason: Moderate Pain) Qty: 20 0RF Referrals Follow up/Referrals: Loretta Alvarez APRN [Primary Care Provider] - See instructions Activity Restrictions/Add. Instructions Additional Instructions/Restrictions: Continue the Augmentin and other medications that were prescribed here 2 days ago. Drink plenty of fluids. Take tylenol or ibuprofen for pain or fever. Take the medications as directed. Follow up with your regular doctor. GO TO THE ER FOR ANY WORSENING SYMPTOMS Clinical Impressions Clinical Impression: Acute viral syndrome Stand Alone Forms Stand Alone Forms: Work/School Release Instructions Patient Instructions: DI for Viral Syndrome Discharge ED Provider: Bernardo Short [facility] General Stated complaint: Congestion,Runny nose,Bodyache,Loss of taste Time Seen by Provider: 08/11/22 13:59 History of Present Illness Provider Complaint: He states that he was diagnosed with a viral upper respiratory infection 2 days ago. He states that he was not prescribed any medications. He is back today because his symptoms have worsened and he is now having decreased sense of smell and taste. He has a nonproductive cough and sore throat also. Related Data Home Medications Medication Instructions Recorded Confirmed omeprazole 20 mg capsule,delayed 20 mg PO DAILY GERD 02/03/22 08/09/22 release Previous Rx's Medication Instructions Recorded amoxicillin 875 mg-potassium 1 tab PO Q12H #20 tabs 08/10/22 clavulanate 125 mg tablet ibuprofen 800 mg tablet (IBU) 800 mg PO TIDP PRN Moderate Pain 08/10/22 #20 tabs Allergies Allergy/AdvReac Type Severity Reaction Status Date / Time No Known Allergies Allergy Verified 03/14/22 15:14 [facility] Disclaimer: The information contained in this section may have been updated after the patient was seen, as this information can be updated by other users. Medical History Abnormal EKG Anxiety Dizziness Major depressive disorder Nausea and vomiting Posttraumatic stress disorder Social History Smoking Status: Never smoker second hand exposure: No alcohol intake: never substance use type: denies use and marijuana current occupational status: other Travel in the last 8 weeks: None household members: family housing: house number of children: 0 current occupation: [employer] caffeine: Yes ROS Obtained: Yes All systems reviewed & no additional complaints except as documented Constitutional Constitutional: Reports chills and Reports fever(s) Eyes Eyes: Denies eye discharge ENT Ears, Nose, Mouth, and Throat: Reports as per HPI Cardiovascular Cardiovascular: Denies chest pain Respiratory Respiratory: Denies chest congestion and Reports cough Gastrointestinal Gastrointestingal: Reports nausea; Denies abdominal pain, constipation, cramping, diarrhea or vomiting Musculoskeletal Musculoskeletal: Denies arthralgias Integumentary/Breasts Skin/Breast: Denies rash Neurologic Neurologic: Denies paresthesias Physical Exam General General appearance: alert and in no apparent distress Head Head exam: atraumatic, normocephalic and normal inspection Eye Eye exam: Present normal appearance, PERRL and EOMI ENT ENT exam: Present mucous membranes moist and normal external ear exam Expanded ENT Exam TM/Canal exam: Bilateral TM: erythema and bulging Nose exam: Absent sinus tenderness Mouth exam: Present normal external inspection; Absent drooling Teeth exam: Present normal inspection Throat exam: Present tonsilla
[2022-08-11 14:05] VITALS: RESP 20; TEMP 37; O2SAT 97; BMI 55.7
[2022-08-11 14:22] LABS: UTC Influenza A Antigen Negative (Negative)
[2022-08-11 14:23] LABS: UTC Influenza B Antigen Negative (Negative)
[2022-08-11 15:18] VITALS: BP 141/95; PULSE 88; RESP 20; TEMP 37; O2SAT 97
== END 2022-08-11 15:18 | disposition home or self-care (01) ==
PROVIDERS: Emergency Provider Nurse Practitioner Family; PCP Nurse Practitioner Family
DX: B34.9 Viral infection, unspecified (principal); R09.89 Other specified symptoms and signs involving the circulatory and respiratory systems; R52 Pain, unspecified; R43.9 Unspecified disturbances of smell and taste
CPT/HCPCS: 87804; 99212; 99213; C9803; G0463; U0003; U0005

== ENCOUNTER → 2022-09-03 09:13 | Outpatient (CLI) | payer OTHER, SELFPAY ==
--- NOTE | 2022-09-03 09:23 | MR_ITS ---
FINAL REPORT TECHNIQUE: Multiplanar and multisequence imaging of the right shoulder was obtained after the intra-articular injection of a dilute gadolinium contrast solution. CLINICAL HISTORY: SHOULDER PAIN COMPARISON: March 15, 2021 FINDINGS: Bones and joints: There is no acute fracture, edema, or pathologic marrow replacement. A.C. joint degenerative disease is present and there is osteophytosis which narrows the supraspinatus outlet. Rotator cuff: There is no full-thickness rotator cuff tendon tear. There is no extension of contrast in the subdeltoid bursa. No biceps tendon dislocation is present. There is no fatty atrophy of the rotator cuff muscles. Labrum: No labral tear is identified or contrast-filled linear abnormal signal to suggest labral tear. The glenohumeral ligaments appear intact. The biceps tendon is within normal limits. No biceps tendon tear is identified. Other: There is no joint effusion. Remaining soft tissues are within normal limits. IMPRESSION: No full-thickness rotator cuff tendon tear or labral tear. Reviewed, Interpreted and Dictated by Narda Love MD Transcribed by Pedrito Bhandari Authenticated and [facility]
--- NOTE | 2022-09-03 09:30 | IR_ITS ---
FINAL REPORT CLINICAL HISTORY: SHOULDER PAIN .5 FLUORO TIME FINDINGS: Right shoulder arthrogram. History: Acute right shoulder pain, work injury. Attending physician: Dr. Love. Physician Hops Farmworker: Jessa Avery PA-C. Procedure: Informed consent was obtained from the patient. Timeout procedure was performed prior to beginning. The patient was placed supine on the fluoroscopy table. Fluoroscopy was utilized to localize the right shoulder joint space. Skin was marked appropriately. The patient was prepped and draped in routine sterile fashion over the right shoulder. Skin was anesthetized with 1% lidocaine. Access to the joint space was obtained using a 3-1/2 spinal needle. Small amount of Isovue contrast was injected to confirm needle placement. This was confirmed. Subsequently, approximately 20 mL of dilute gadolinium were injected into the joint space. The patient tolerated the procedure well and left the department in good condition. Fluoroscopy time: 0.5 minutes. 2 images were saved. IMPRESSION: Technically successful fluoroscopic guided right shoulder injection for MR arthrogram. Please see MRI report. Reviewed, Interpreted and Dictated by Narda Love MD Transcribed by Jessa Avery PA-C Authenticated and [facility]
== END ==
PROVIDERS: PCP Family Medicine; Visit Provider Family Medicine
DX: M25.511 Pain in right shoulder (principal)
CPT/HCPCS: 73040; 73222; A9576; Q9967

== ENCOUNTER 2023-01-03 02:06 | Emergency (ER) | payer OTHER, SELFPAY ==
[2023-01-03 02:15] VITALS: BP 136/89; PULSE 77; RESP 16; TEMP 36.8; O2SAT 98; BMI 48.8
--- NOTE | 2023-01-03 02:20 | XR_ITS ---
PROCEDURE INFORMATION: Exam: XR Left Foot Exam date and time: 01/03/2023 2:13 AM Age: 27 years old Clinical indication: Pain; Foot; Left; Additional info: Foot injury TECHNIQUE: Imaging protocol: Radiologic exam of the left foot. Views: 3 or more views. COMPARISON: No relevant prior studies available. FINDINGS: Bones/joints: Normal. Soft tissues: Normal. IMPRESSION: No acute findings.
[2023-01-03 02:31] VITALS: BP 100/70; PULSE 92; O2SAT 97
[2023-01-03 03:01] VITALS: BP 142/64; PULSE 78; O2SAT 96
[2023-01-03 03:31] VITALS: BP 138/72; PULSE 78; O2SAT 98
[2023-01-03 04:01] VITALS: BP 140/65; PULSE 76; O2SAT 98
--- NOTE | 2023-01-03 04:10 | PC.NURSE ---
Spoke with radiology they advised it was showing 140minute wait time on scan results.
--- NOTE | 2023-01-03 04:27 | PC.NURSE ---
Rounded on pt. No needs voiced.
--- NOTE | 2023-01-03 04:54 | HMH.EDLOEX ---
Discharge Plan Disposition Patient Disposition: Home, Self-Care Prescriptions Prescriptions: New meloxicam 15 mg tablet 15 mg PO DAILY Qty: 10 0RF No Action omeprazole 20 MG capsule,delayed release(DR/EC) 20 mg PO DAILY Referrals Follow up/Referrals: Loretta Alvarez APRN [Primary Care Provider] - See instructions Urvashi Christian DPM [Staff Physician] - See instructions Clinical Impressions Clinical Impression: Injury of foot, left Instructions Patient Instructions: DI for Foot Pain Discharge ED Provider: Julieta (ED)Herson Lower Extremity Injury HPI General Chief Complaint: Extremity Injury, Lower Stated Complaint: WC 01/02/23 injury left foot Time Seen by Provider: 01/03/23 04:00 Mode of Arrival: Family Vehicle Source of Information: Patient and Medical Record Limitations: No Limitations Description of Symptoms (Recalled from ER Triage Doc. by RN): 27 yo male presents 23 hours after dropping a 40lb object on his foot at work. Complains of bruising, pain and difficulty with walking. History of Present Illness HPI Narrative: reported dropped wt on lt foot ar work last pm -has pain and swelling and diff with wt bearing MD complaint: foot injury Onset (ago): day(s) Injury: Left: foot Type of Injury: blunt Place: work Severity: moderate Exacerbating factors: weight bearing, movement and palpation Context: direct blow Associated symptoms: swelling and able to partially bear weight Other symptoms: none Related Data Home Medications Medication Instructions Recorded Confirmed omeprazole 20 mg capsule,delayed 20 mg PO DAILY GERD 02/03/22 01/03/23 release Previous Rx's Medication Instructions Recorded meloxicam 15 mg tablet 15 mg PO DAILY #10 tabs 01/03/23 Allergies Allergy/AdvReac Type Severity Reaction Status Date / Time No Known Allergies Allergy Verified 03/14/22 15:14 [facility] Disclaimer: The information contained in this section may have been updated after the patient was seen, as this information can be updated by other users. Medical History Abnormal EKG Anxiety Dizziness Major depressive disorder Nausea and vomiting Posttraumatic stress disorder Social History Smoking Status: Unknown if ever smoked second hand exposure: No alcohol intake: never substance use type: denies use and marijuana current occupational status: other Travel in the last 8 weeks: None household members: family housing: house number of children: 0 current occupation: [employer] caffeine: Yes ROS Obtained: Yes All systems reviewed & no additional complaints except as documented Physical Exam General General appearance: alert Head Head exam: normocephalic Eye Eye exam: Present PERRL and EOMI ENT ENT exam: Present mucous membranes moist Neck Neck exam: Present full ROM and trachea midline Respiratory Respiratory exam: Absent respiratory distress Cardiovascular Cardiovascular exam: Present regular rate Expanded Lower Extremity Exam Left: Foot/toe exam: Present tenderness, swelling and ecchymosis; Absent full ROM Neurovascular/Tendon exam: Absent pulse deficit or motor deficit Neurological Exam Neurological exam: Present alert, oriented X3 and CN II-XII intact Psychiatric Psychiatric exam: Present normal affect Skin Skin exam: Absent rash Medical Decision Making Medical Records Medical records reviewed: Yes I reviewed the patient's medical records. Benny Inquiry Pt receiving controlled substance: No Vital Signs: 01/03/23 02:15 01/03/23 02:31 01/03/23 03:01 Temperature 98.3 F Temperature Source Oral Pulse Rate 92 H 78 Pulse Rate [Right Brachial] 77 Respiratory Rate 16 Blood Pressure 100/70 L 142/64 H Blood Pressure [Right Arm] 136/89 Blood Pressure Mean [Right Arm] 104 Blood Pressure Source [Right Arm] Automatic C
--- NOTE | 2023-01-03 04:56 | PC.NURSE ---
Dr. Rendon at
[2023-01-03 05:32] VITALS: BP 140/62; PULSE 78; RESP 18; TEMP 36.6; O2SAT 99
== END 2023-01-03 05:35 | disposition home or self-care (01) ==
PROVIDERS: Emergency Provider Emergency Medicine; PCP Nurse Practitioner Family
DX: S99.922A Unspecified injury of left foot, initial encounter (principal); M79.672 Pain in left foot; W20.8XXA Other cause of strike by thrown, projected or falling object, initial encounter; Y99.0 Civilian activity done for income or pay
CPT/HCPCS: 73630; 99283; 99284

== ENCOUNTER 2023-06-19 10:50 | Emergency (ER) | payer OTHER, SELFPAY ==
--- NOTE | 2023-06-19 10:59 | XR_ITS ---
FINAL REPORT CLINICAL HISTORY: Right foot pain COMPARISON: 02/07/2019 FINDINGS: RIGHT FOOT 3 views of the right foot were obtained. There is no acute fracture or dislocation. Visualized joint spaces are normally aligned. There is a small plantar spur. There is soft tissue edema over the dorsum of the foot. IMPRESSION: Soft tissue swelling without acute bony abnormality. Reviewed, Interpreted and Dictated by Vinicius Maldonado MD Transcribed by Isabelle Dimas Authenticated and [facility]
--- NOTE | 2023-06-19 11:23 | EXP.UTC ---
Discharge Plan Disposition Patient Disposition: Home, Self-Care Condition: Good Prescriptions Prescriptions: New ibuprofen [IBU] 800 mg tablet 800 mg PO Q8HP PRN (Reason: Moderate Pain) Qty: 30 0RF No Action omeprazole 20 MG capsule,delayed release(DR/EC) 20 mg PO DAILY Referrals Follow up/Referrals: Loretta Alvarez APRN [Primary Care Provider] - See instructions Urvashi Christian DPM [Staff Physician] - See instructions Activity Restrictions/Add. Instructions Additional Instructions/Restrictions: Rest the extremity, apply ice for 15 minutes as tolerated three or four times per day, Wear the belia wrap for compression, Elevate the extremity as tolerated while you are resting. Take ibuprofen for pain. I sent in a prescription to your pharmacy. Follow up with Dr. Christian (podiatry). I put in a referral but you need to call her office and schedule an appointment. Follow up with your regular doctor. GO TO THE ER FOR ANY WORSENING SYMPTOMS Clinical Impressions Clinical Impression: Right foot sprain, Right foot pain Stand Alone Forms Stand Alone Forms: Work/School Release Instructions Patient Instructions: DI for Foot Pain, DI for Foot Sprain Discharge ED Provider: Bernardo Short [facility] General Stated complaint: fell ao 06-16 r foot pain Time Seen by Provider: 06/19/23 11:23 History of Present Illness Provider Complaint: He states that 3 days ago he stepped down off his steps and twisted his right foot. Since then he has had right foot pain that is worse with walking and bearing weight. He denies any additional injuries or complaints. Related Data Home Medications Medication Instructions Recorded Confirmed omeprazole 20 mg capsule,delayed 20 mg PO DAILY GERD 02/03/22 06/19/23 release Previous Rx's Medication Instructions Recorded ibuprofen 800 mg tablet (IBU) 800 mg PO Q8HP PRN Moderate Pain 06/19/23 #30 tabs Allergies Allergy/AdvReac Type Severity Reaction Status Date / Time No Known Allergies Allergy Verified 06/19/23 11:49 [facility] Disclaimer: The information contained in this section may have been updated after the patient was seen, as this information can be updated by other users. Medical History Abnormal EKG Anxiety Dizziness Major depressive disorder Nausea and vomiting Posttraumatic stress disorder Social History Smoking Status: Unknown if ever smoked second hand exposure: No alcohol intake: never substance use type: denies use and marijuana current occupational status: other Travel in the last 8 weeks: None household members: family housing: house number of children: 0 current occupation: [employer] caffeine: Yes ROS Obtained: Yes All systems reviewed & no additional complaints except as documented Constitutional Constitutional: Denies chills and Denies fever(s) Eyes Eyes: Denies eye discharge ENT Ears, Nose, Mouth, and Throat: Denies dizziness, Denies otalgia and Denies sore throat Cardiovascular Cardiovascular: Denies chest pain Respiratory Respiratory: Denies shortness of breath, Denies chest congestion, Denies cough, Denies stridor and Denies wheezing Gastrointestinal Gastrointestingal: Denies nausea or vomiting Musculoskeletal Musculoskeletal: Reports as per HPI Integumentary/Breasts Skin/Breast: Denies rash Neurologic Neurologic: Denies dizziness and Denies paresthesias Allergic/Immunologic Allergic/Immunologic: Denies wheezing Physical Exam General General appearance: alert and in no apparent distress Head Head exam: atraumatic, normocephalic and normal inspection Eye Eye exam: Present normal appearance, PERRL and EOMI ENT ENT exam: Present normal exam, normal oropharynx, mucous membranes moist, TM's normal bilaterally and normal external ear exam Neck Neck exam: Present normal inspection, full ROM and tra
[2023-06-19 11:35] VITALS: BP 149/98; PULSE 87; RESP 19; TEMP 37.1; O2SAT 100; BMI 59.1
[2023-06-19 12:44] VITALS: BP 149/98; PULSE 87; RESP 19; TEMP 37.1; O2SAT 100
== END 2023-06-19 12:44 | disposition home or self-care (01) ==
PROVIDERS: Emergency Provider Nurse Practitioner Family; PCP Nurse Practitioner Family
DX: M79.671 Pain in right foot (principal); S93.601A Unspecified sprain of right foot, initial encounter; W10.8XXA Fall (on) (from) other stairs and steps, initial encounter
CPT/HCPCS: 73630; 99212; 99214; G0463

== ENCOUNTER 2023-11-04 12:30 | Emergency (ER) | payer SELFPAY ==
[2023-11-04 13:10] VITALS: BP 120/68; PULSE 119; RESP 20; TEMP 37.4; O2SAT 98; BMI 55.7
--- NOTE | 2023-11-04 13:27 | EXP.UTC ---
Discharge Plan Disposition Patient Disposition: Home, Self-Care Condition: Good Prescriptions Prescriptions: New amoxicillin 875 mg tablet 875 mg PO Q12H 10 Days Qty: 20 0RF vxzzssmyfbkyeey-tfuqueyid-QA [Bromfed DM] 2-30-10 mg/5 mL syrup 10 ml PO Q6H PRN (Reason: cold/cough symptoms) Qty: 200 0RF No Action omeprazole 20 MG capsule,delayed release(DR/EC) 20 mg PO DAILY Referrals Follow up/Referrals: Loretta Alvarez APRN [Primary Care Provider] - See instructions Activity Restrictions/Add. Instructions Additional Instructions/Restrictions: *Monitor Temp, Over the counter Motrin or Tylenol as directed/as needed Tylenol every 4 hours and Motrin every 6 hours (as long as your family doctor has told you that you can take it) for fever or pain. and straight to ER if unable to lower temp less than 101.0 after medication given *Warm salt water gargles may help to soothe the throat *Throat Lozenges? *Warm fluids like tea with honey may help to soothe the throat? *Sleep elevated *Humidifier/Vaporizer *If you did not take Penicillin shot or was unable to, start taking antibiotic immediately and make sure that you take it for the FULL length of time although you should start to feel better in 24-48 hours *change toothbrush and toothpaste 24-48 hours after starting to take antibiotics so you do not reinfect yourself Monitor Temp. Tylenol and/or Ibuprofen as needed. ER if fever is no less than 101 despite alternating Tylenol and Ibuprofen * Encourage fluids, water, Gatorade, powerade, pedialyte if /toddler/or child *Cold fluids, popsicles and ice cream may feel good on his throat Follow up IMMEDIATELY for new or worsening symptoms or no Noticeable improvement over the next 48-72 hours. 911 for difficulty breathing or swallowing Clinical Impressions Clinical Impression: Strep pharyngitis Stand Alone Forms Stand Alone Forms: Work/School Release Instructions Patient Instructions: DI for Strep Throat Discharge ED Provider: Kristine Jean [facility] [place] HPI General Stated complaint: cough, headache, chills, body aches, SOA Mode of Arrival: Ambulatory Source of Information: Patient Limitations: No Limitations Time Seen by Provider: 11/04/23 13:27 Description of Symptoms (Recalled from Triage Doc. by RN): PATIENT C/O COUGH, BODY ACHES, CHILLS, HEADACHE AND SOA THAT STARTED THIS MORNING HEENT Symptoms (Recalled from RN notes): Yes Resp Symptoms (Recalled from RN notes): Yes Skin Symptoms (Recalled from RN notes): No MS Symptoms (Recalled from RN notes): No Functional Status (Recalled from RN notes): WNL History of Present Illness Provider Complaint: Patient states woke up this morning with cough, headache, chills, and feeling a little SOA after coughing State that he feels like he has drainage in the back of his throat so he came in to get checked Related Data Home Medications Medication Instructions Recorded Confirmed omeprazole 20 mg capsule,delayed 20 mg PO DAILY GERD 02/03/22 11/04/23 release Previous Rx's Medication Instructions Recorded amoxicillin 875 mg tablet 875 mg PO Q12H 10 days #20 tabs 11/04/23 qzpxflwztycgumy-fenohzkiiuonzel-BT 10 ml PO Q6H PRN cold/cough 11/04/23 2 mg-30 mg-10 mg/5 mL oral syrup symptoms #200 mL (Bromfed DM) Allergies Allergy/AdvReac Type Severity Reaction Status Date / Time No Known Allergies Allergy Verified 06/19/23 11:49 Worker's Comp Is this a Worker's Comp case?: No PFS PFS Disclaimer: The information contained in this section may have been updated after the patient was seen, as this information can be updated by other users. Medical History Abnormal EKG Anxiety Dizziness Major depressive disorder Nausea and vomiting Posttraumatic stress disorder Social History Smoking Status: Unknown if ever smoked second hand exposure: No alcohol intake: never substance use type: denies use and marijuana current occupational status: other Travel in the last 8 weeks: None household members: family housing: house number of children: 0 current occupation: [employer] caffeine: Yes ROS Obtained: Yes All systems reviewed & no additional complaints except as documented and Yes Systems reviewed as appropriate & no additional complaints except as documented Constitutional Constitutional: Reports system reviewed and no additional complaints, except as documented, Reports as per HPI, Reports body ache, Reports chills and Reports headache(s) ENT Ears, Nose, Mouth, and Throat: Reports system reviewed and no additional complaints, except as documented, Reports as per HPI, Reports headache(s) and Reports sore throat (scratchy throat with drainage) Cardiovascular Cardiovascular: Reports system reviewed and no additional complaints, except as documented and Reports as per HPI Respiratory Respiratory: Reports system reviewed and no additional complaints, except as documented, Reports as per HPI, Reports shortness of breath and Reports cough Gastrointestinal Gastrointestingal: Reports system reviewed and no additional complaints, except as documented and as per HPI Neurologic Neurologic: Reports system reviewed and no additional complaints, except as documented, Reports as per HPI and Reports headache(s) Physical Exam General General appearance: alert and in no apparent distress ENT ENT exam: Present mucous membranes moist Expanded ENT Exam Nose exam: Absent sinus tenderness Throat exam: Present tonsillar erythema Respiratory Respiratory exam: Present normal lung sounds bilaterally; Absent respiratory distress or wheezes Cardiovascular Cardiovascular exam: Present regular rate, normal rhythm and tachycardia Neurological Exam Neurological exam: Present alert, oriented X3 and normal gait Medical Decision Making Benny Inquiry Pt receiving controlled substance: No Vital Signs: 11/04/23 13:10 Temperature 99.4 F Temperature Source Oral Pulse Rate [Left Brachial] 119 H Respiratory Rate 20 Blood Pressure [Left Arm] 120/68 Blood Pressure Mean [Left Arm] 85 Blood Pressure Source [Left Arm] Automatic Cuff Blood Pressure Position [Left Arm] Sitting 02 Sat by Pulse Oximetry 98 Oxygen Delivery Method Room Air
[2023-11-04 13:31] LABS: UTC Influenza A Antigen Negative (Negative); UTC Influenza B Antigen Negative (Negative); UTC Strep Screen (Rapid) Positive (Negative)
[2023-11-04 13:35] VITALS: BP 120/68; PULSE 119; RESP 20; TEMP 37.4; O2SAT 98
== END 2023-11-04 13:49 | disposition home or self-care (01) ==
PROVIDERS: Emergency Provider Nurse Practitioner; PCP Nurse Practitioner Family
DX: J02.0 Streptococcal pharyngitis (principal); R07.0 Pain in throat; R51.9 Headache, unspecified; R05.9 Cough, unspecified; R09.82 Postnasal drip
CPT/HCPCS: 87804; 87880; 99212; 99214; G0463

== ENCOUNTER 2024-01-01 13:21 | Emergency (ER) | payer BC, SELFPAY ==
[2024-01-01 13:45] VITALS: BP 127/82; PULSE 84; RESP 18; TEMP 37.1; O2SAT 96; BMI 53.6
--- NOTE | 2024-01-01 13:52 | EXP.UTC ---
Discharge Plan Disposition Patient Disposition: Home, Self-Care Condition: Good Prescriptions Prescriptions: New terbinafine HCl 250 mg tablet 250 mg PO DAILY Qty: 30 2RF sulfamethoxazole-trimethoprim [Bactrim DS] 800-160 mg tablet 1 tab PO Q12H Qty: 20 0RF butenafine [Mentax] 1 % cream 1 applic topical BID Qty: 60 2RF mupirocin 2 % ointment 1 applic topical TID Qty: 22 0RF urea 10 % lotion 1 applic topical BID PRN (Reason: skin irritation) Qty: 236.56 0RF No Action omeprazole 20 MG capsule,delayed release(DR/EC) 20 mg PO DAILY Referrals Follow up/Referrals: Loretta Alvarez APRN [Primary Care Provider] - See instructions Activity Restrictions/Add. Instructions Additional Instructions/Restrictions: Tribune boots with antifungal spray before and after wearing Keep socks as dry as possible Launder socks with bleach or vinegar Bleach shower floor Clinical Impressions Clinical Impression: Tinea pedis Stand Alone Forms Stand Alone Forms: Work/School Release Instructions Patient Instructions: DI for Athlete's Foot Discharge ED [place] Silke Marquez [facility] [place] General Stated complaint: Heels cracked and bleeding Time Seen by Provider: 01/01/24 14:22 History of Present Illness Provider Complaint: Patient has struggled with athletes foot for a while, but now heels are cracked are bleeding. 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 Onset (ago): month(s) (3) Location: left, right and lower extremity Relieving factors: none Exacerbating factors: none Associated symptoms: denies other symptoms Treatments prior to arrival: none Related Data Home Medications Medication Instructions Recorded Confirmed omeprazole 20 mg capsule,delayed 20 mg PO DAILY GERD 02/03/22 01/01/24 release Previous Rx's Medication Instructions Recorded butenafine 1 % topical cream 1 applic topical BID #60 grams 01/01/24 (Mentax) mupirocin 2 % topical ointment 1 applic topical TID cracked areas 01/01/24 #22 grams sulfamethoxazole 800 1 tab PO Q12H #20 tabs 01/01/24 mg-trimethoprim 160 mg tablet (Bactrim DS) terbinafine HCl 250 mg tablet 250 mg PO DAILY #30 tabs 01/01/24 urea 10 % lotion 1 applic topical BID PRN skin 01/01/24 irritation #236.56 mL Allergies Allergy/AdvReac Type Severity Reaction Status Date / Time No Known Allergies Allergy Verified 06/19/23 11:49 [facility] Disclaimer: The information contained in this section may have been updated after the patient was seen, as this information can be updated by other users. Medical History Abnormal EKG Anxiety Dizziness Major depressive disorder Nausea and vomiting Posttraumatic stress disorder Social History Smoking Status: Unknown if ever smoked second hand exposure: No alcohol intake: never substance use type: denies use and marijuana current occupational status: other Travel in the last 8 weeks: None household members: family housing: house number of children: 0 current occupation: [employer] caffeine: Yes ROS Obtained: Yes All systems reviewed & no additional complaints except as documented Integumentary/Breasts Skin/Breast: Reports as per HPI Physical Exam General General appearance: alert and in no apparent distress ENT ENT exam: Present mucous membranes moist Expanded ENT Exam Nose exam: Absent sinus tenderness Respiratory Respiratory exam: Present normal lung sounds bilaterally; Absent respiratory distress or wheezes Cardiovascular Cardiovascular exam: Present regular rate, normal rhythm and tachycardia Neurological Exam Neurological exam: Present alert, oriented X3 and normal gait Skin Skin exam: Present rash Medical Decision Making Benny Inquiry Pt receiving controlled substance: No
[2024-01-01 14:30] VITALS: BP 127/82; PULSE 84; RESP 18; TEMP 37.1; O2SAT 96
== END 2024-01-01 14:30 | disposition home or self-care (01) ==
PROVIDERS: Emergency Provider Physician Assistant; PCP Nurse Practitioner Family
DX: B35.3 Tinea pedis (principal)
CPT/HCPCS: 99212; 99214; G0463

== ENCOUNTER 2024-01-28 10:18 | Emergency (ER) | payer BC, SELFPAY ==
[2024-01-28 10:30] VITALS: BP 126/81; PULSE 78; RESP 20; TEMP 36.7; O2SAT 95; BMI 53.9
--- NOTE | 2024-01-28 10:42 | EXP.UTC ---
Discharge Plan Disposition Patient Disposition: Home, Self-Care Condition: Good Prescriptions Prescriptions: New ondansetron 4 mg tablet,disintegrating 4 mg PO Q8H PRN (Reason: nausea and vomiting) Qty: 10 0RF No Action omeprazole 20 MG capsule,delayed release(DR/EC) 20 mg PO DAILY Referrals Follow up/Referrals: Loretta Alvarez APRN [Primary Care Provider] - See instructions Activity Restrictions/Add. Instructions Additional Instructions/Restrictions: Drink extra fluids with and between meals. If you have difficulty drinking, try very small amounts of water or suck on ice chips. ? Avoid fruit juices, as these do not replace minerals and can actually increase diarrhea. ? Children and adults can use sports drinks to replenish electrolytes. Younger children and infants should use products formulated for children, like oral rehydration solutions. ? Eat food in small amounts and let your stomach recover. ? Get lots of rest. You may feel tired or weak. ? No greasy or fried foods for the next 24-48 hours BRAT diet Bananas Rice Apples and Blum ? Make sure to drink plenty of liquids ? Return if needed ? Straight to ER if any life threatening symptoms ? Zofran as prescribed ? Follow up with family doctor in the next 48-72 hours if no improvement or any worsening of symptoms Clinical Impressions Clinical Impression: Nausea and vomiting Stand Alone Forms Stand Alone Forms: Work/School Release Instructions Patient Instructions: Ondansetron, Nausea and Vomiting-Adult Discharge ED Provider: Kristine Jean [facility] General Stated complaint: vomiting, fever, runny nose Mode of Arrival: Ambulatory Source of Information: Patient Limitations: No Limitations Time Seen by Provider: 01/28/24 10:42 Description of Symptoms (Recalled from Triage Doc. by RN): PATIENT C/O VOMITING, NAUSEA, AND HEADACHE THAT STARTED TODAY HEENT Symptoms (Recalled from RN notes): Yes Resp Symptoms (Recalled from RN notes): No Skin Symptoms (Recalled from RN notes): No MS Symptoms (Recalled from RN notes): No Functional Status (Recalled from RN notes): WNL History of Present Illness Provider Complaint: Patient states that he woke up this morning having N/V headache and feeling achy States that his friend that rides to work with him had similar symptoms yesterday so today he wasnt able to go to work so he came in to get a note Related Data Home Medications Medication Instructions Recorded Confirmed omeprazole 20 mg capsule,delayed 20 mg PO DAILY GERD 02/03/22 01/28/24 release Previous Rx's Medication Instructions Recorded ondansetron 4 mg disintegrating 4 mg PO Q8H PRN nausea and 01/28/24 tablet vomiting #10 tabs Allergies Allergy/AdvReac Type Severity Reaction Status Date / Time No Known Allergies Allergy Verified 06/19/23 11:49 Worker's Comp Is this a Worker's Comp case?: No [facility] Disclaimer: The information contained in this section may have been updated after the patient was seen, as this information can be updated by other users. Medical History Abnormal EKG Anxiety Dizziness Major depressive disorder Nausea and vomiting Posttraumatic stress disorder Social History Smoking Status: Unknown if ever smoked second hand exposure: No alcohol intake: never substance use type: denies use and marijuana current occupational status: other Travel in the last 8 weeks: None household members: family housing: house number of children: 0 current occupation: [employer] caffeine: Yes ROS Obtained: Yes All systems reviewed & no additional complaints except as documented and Yes Systems reviewed as appropriate & no additional complaints except as documented Constitutional Constitutional: Reports system reviewed and no additional complaints, except as documented and Reports as per HPI ENT Ears, Nose, Mouth, and Throat: Reports system reviewed and no additional complaints, except as documented and Reports as per HPI Cardiovascular Cardiovascular: Reports system reviewed and no additional complaints, except as documented and Reports as per HPI Respiratory Respiratory: Reports system reviewed and no additional complaints, except as documented and Reports as per HPI Gastrointestinal Gastrointestingal: Reports system reviewed and no additional complaints, except as documented, as per HPI, nausea and vomiting Physical Exam General General appearance: alert and in no apparent distress ENT ENT exam: Present mucous membranes moist Respiratory Respiratory exam: Present normal lung sounds bilaterally; Absent respiratory distress or wheezes Cardiovascular Cardiovascular exam: Present regular rate, normal rhythm and normal heart sounds Abdominal Exam Abdominal exam: Present soft, distention and normal bowel sounds Neurological Exam Neurological exam: Present alert and normal gait Medical Decision Making Benny Inquiry Pt receiving controlled substance: No Benny was queried for this patient: No Vital Signs: 01/28/24 10:30 Temperature 98.1 F Temperature Source Oral Pulse Rate [Left Brachial] 78 Respiratory Rate 20 Blood Pressure [Left Arm] 126/81 Blood Pressure Mean [Left Arm] 96 Blood Pressure Source [Left Arm] Automatic Cuff Blood Pressure Position [Left Arm] Sitting 02 Sat by Pulse Oximetry 95 Oxygen Delivery Method Room Air
[2024-01-28 10:57] VITALS: BP 126/81; PULSE 78; RESP 20; TEMP 36.7; O2SAT 95
== END 2024-01-28 11:00 | disposition home or self-care (01) ==
PROVIDERS: Emergency Provider Nurse Practitioner; PCP Nurse Practitioner Family
DX: R11.2 Nausea with vomiting, unspecified (principal); R51.9 Headache, unspecified
CPT/HCPCS: 99212; 99214; G0463

== ENCOUNTER 2024-08-16 03:18 | Emergency (ER) | payer SELFPAY ==
[2024-08-16 03:19] VITALS: BP 125/73; PULSE 116; RESP 16; TEMP 37; O2SAT 97; BMI 53.6
--- NOTE | 2024-08-16 03:24 | XR_ITS ---
PROCEDURE INFORMATION: Exam: XR Chest Exam date and time: 08/16/2024 3:25 AM Age: 29 years old Clinical indication: Cough and shortness of breath TECHNIQUE: Imaging protocol: Radiologic exam of the chest. Views: 2 views. COMPARISON: CR XR CHEST 2V 03/17/2022 6:15 AM FINDINGS: Lungs: Unremarkable. No consolidation. Pleural spaces: Unremarkable. No pleural effusion. No pneumothorax. Heart/Mediastinum: Unremarkable. No cardiomegaly. Bones/joints: Unremarkable. IMPRESSION: No acute findings.
[2024-08-16] MEDS: KETOROLAC 30MG/ML VIAL 30 MG IM (03:28)
[2024-08-16] MEDS: METOCLOPRAMIDE 10MG TABLET 10 MG PO (03:28)
[2024-08-16 03:33] LABS: Coronavirus 19, PCR Not Detected (NotDetected); Influenza B, PCR Not Detected (NotDetected)
--- NOTE | 2024-08-16 04:09 | ED_ITS ---
Discharge Plan Disposition Patient Disposition: Home, Self-Care Condition: Good Prescriptions Prescriptions: No Action omeprazole 20 MG capsule,delayed release(DR/EC) 20 mg PO DAILY ondansetron 4 mg tablet,disintegrating 4 mg PO Q8H PRN (Reason: nausea and vomiting) Qty: 10 0RF Referrals Follow up/Referrals: Loretta Alvarez APRN [Primary Care Provider] - See instructions Activity Restrictions/Add. Instructions Additional Instructions/Restrictions: You were evaluated in the ER and are appropriate for discharge at this time. Drink plenty of water. Take Tylenol, ibuprofen if needed for headache, do not exceed the recommended dose on the bottle. Drink water and eat a small snack each time you take these medications to avoid side effects. You can also take Claritin or Zyrtec daily to help with congestion and sinus pressure. Follow-up with your primary care doctor for reevaluation. Return to the ER with new, worsening, or otherwise concerning symptoms Clinical Impressions Clinical Impression: Influenza A Print Language Print Language: Fijian Discharge ED Provider: Mahesh Heller General Adult HPI General Chief complaint: Upper Respiratory Infection Stated complaint: migraine, weakness, lower back pain, congestion Time Seen by Provider: 08/16/24 03:24 Mode of Arrival: Ambulatory Source of Information: Patient Limitations: No Limitations Description of Symptoms (Recalled from ER Triage Doc. by RN): Patient complains of congestion, cough and a migraine x2 days. States he has had a cold since last week and started to feel bad again yesterday. History of Present Illness HPI narrative: 29-year-old male who takes omeprazole daily for reflux but has no other known chronic medical conditions, no daily medications, no known drug allergies presents to the ER for complaints of cough, congestion, frontal headache. He states symptoms have been going on for the last 2 to 3 days. He is not having chest pain or difficulty breathing, no nausea, vomiting, or diarrhea. He denies any swelling in the feet or legs, states he has no numbness, tingling, or weakness. He denies any fevers at home. Patient reports taking Excedrin today without significant relief. He states over a week ago he had a cold and seemed to recover until the last 2 days he developed cough again. Related Data Home Medications ?Medication ?Instructions ?Recorded ?Confirmed omeprazole 20 mg capsule,delayed 20 mg PO DAILY GERD 02/03/22 01/28/24 release Previous Rx's ?Medication ?Instructions ?Recorded ondansetron 4 mg disintegrating 4 mg PO Q8H PRN nausea and 01/28/24 tablet vomiting #10 tabs Allergies Allergy/AdvReac Type Severity Reaction Status Date / Time No Known Allergies Allergy Verified 06/19/23 11:49 [facility] Disclaimer: The information contained in this section may have been updated after the patient was seen, as this information can be updated by other users. Medical History Abnormal EKG Anxiety Dizziness Major depressive disorder Nausea and vomiting Posttraumatic stress disorder Social History Smoking Status: Never smoker second hand exposure: No alcohol intake: never substance use type: denies use and marijuana current occupational status: other Travel in the last 8 weeks: None household members: family housing: house number of children: 0 current occupation: [employer] caffeine: Yes Have you lived/traveled outside US in past 30 days?: No Contact w/someone who lives/traveled outside US past 30 days?: No Exposure to someone with infectious disease in past 14 days?: No Do you have a fever (greater than 100.4 F or 38 C)?: No Have you tested positive for COVID-19: No Exposed to someone with COVID-19 in past 14 days?: No Do you have a sore throat?: No Do you have a cough?: No Do you have any weakness?: Yes Do you have any diarrhea?: No Are you experiencing any unusual bleeding?: No Do you have any muscle aches/pain?: Yes Do you have any abdominal pain?: No Are you experiencing loss of taste or smell?: No Other Medical History Have you received the Flu Vaccine for this season: No Have you received the Pneumonia Vaccine: No ROS Obtained: Yes Systems reviewed as appropriate & no additional complaints except as documented Per HPI Physical Exam General General appearance: alert, in no apparent distress and obese Head Head exam: atraumatic and normocephalic Eye Eye exam: Present PERRL and EOMI ENT ENT exam: Present mucous membranes moist Neck Neck exam: Present normal inspection and full ROM Chest Chest inspection: Present symmetric chest wall rise Respiratory Respiratory exam: Present normal lung sounds bilaterally; Absent respiratory distress, wheezes or stridor Cardiovascular Cardiovascular exam: Present regular rate and normal rhythm Abdominal Exam Abdominal exam: Present soft; Absent distention or tenderness Extremities Exam Extremities exam: Present full ROM; Absent edema Neurological Exam Neurological exam: Present alert and oriented X3; Absent motor sensory deficit Psychiatric Psychiatric exam: Present normal affect and normal mood Skin Skin exam: Present warm and dry Medical Decision Making Medical Records Medical records reviewed: Yes I reviewed the patient's medical records. Screening: Per USPSTF and CDC recommendations, given the prevalence of disease in our region, it is our hospital?s policy to screen for HIV and viral Hepatitis for all patients aged 18 and over and those with ongoing risk factors. MR Comment: Most recent encounter in our system was in January 2024 when patient was evaluated in [facility] with nausea and vomiting. He was prescribed ondansetron. Benny Inquiry Pt receiving controlled substance: No Vital Signs: 08/16/24 03:19 08/16/24 04:34 Temperature 98.6 F Temperature Source Oral Pulse Rate 96 H Pulse Rate [Right Radial] 116 H Respiratory Rate 16 Blood Pressure [Right Arm] 125/73 Blood Pressure Mean [Right Arm] 90 Blood Pressure Source [Right Arm] Automatic Cuff Blood Pressure Position [Right Arm] Supine 02 Sat by Pulse Oximetry 97 Oxygen Delivery Method Room Air Lab Data Lab Results 08/16/24 03:25: SARS-CoV-2 (PCR) Not detected, Influenza A Untype (PCR) Detected A, Influenza Type B (PCR) Not detected Orders (Tests/Meds): ED MEDICATIONS Discontinued Medications Generic Name Dose Route Start Last Admin Trade Name Freq PRN Reason Stop Dose Admin Ketorolac Tromethamine 30 mg 08/16/24 03:24 08/16/24 03:28 Ketorolac 30mg/Ml Vial IM 08/16/24 03:25 30 mg ONCE ONE Administration Metoclopramide HCl 10 mg 08/16/24 03:24 08/16/24 03:28 Metoclopramide 10mg Tablet PO 08/16/24 03:25 10 mg ONCE ONE Administration ORDERS Category Date Time Status CXR 2 view (NOT portable) [XR chest 2V] Stat Exams 08/16/24 03:24 Completed Rapid PCR Covid and Flu A/B Stat Lab 08/16/24 03:25 Completed Medical Decision Narrative: In summary, 29-year-old male with comorbidities described in the HPI presents to the ER with concerns of cough, congestion, frontal headache. On initial evaluation patient is hemodynamically stable, afebrile, lungs are clear bilaterally. Tachycardia that had been present on arrival was absent during my exam, heart rate in the mid to upper 90s. He is breathing clearly and has no peripheral edema, abdomen soft, nontender, nondistended. Lungs do not demonstrate any adventitious sounds, saturating 97 to 100% on room air. Patient has mild tenderness over his frontal and maxillary sinuses but no redness, facial swelling, or fevers. Differential diagnose includes but not limited to viral syndrome including COVID, influenza, other virus, given patient recently had cold-like symptoms and now has worsening cough, also considered the possibility of pneumonia though I have lower suspicion for this since he also did redeveloped congestion and headache at the same time as his cough and his lungs are clear without fever. Also considered sinusitis but do not have evidence of this on exam. Chest x-ray was performed for evaluation as well as viral swab. Patient received Toradol, Reglan. Since he drove himself I am not going to administer Benadryl as this could compromise his alertness behind the wheel. I personally interpreted chest x-ray and do not appreciate lobar infiltrate, pneumothorax, or other acute intrathoracic abnormality. See radiology read for final interpretation. Viral swab positive for influenza A. Since patient's onset of symptoms was within the last 48 hours, I offered Tamiflu to him. After discussing common side effects and benefits, he would prefer to not take Tamiflu. I believe this is reasonable since he is otherwise relatively healthy. On reassessment his headache is dramatically improved and he feels much better. He is appropriate for discharge at this time. No prescriptions were given to the patient. I did give him instructions for [id number] symptom management. Patient was given instructions on symptomatic management, follow up instructions, and return precautions for the emergency department. Patient indicated understanding and was discharged in stable condition. Critical Care Critical Care Time Critical Care Time: No
[2024-08-16 04:28] LABS: Influenza A, PCR Detected (NotDetected)
[2024-08-16 04:34] VITALS: PULSE 96
[2024-08-16 04:36] VITALS: BP 114/69; BP 132/74; PULSE 94; PULSE 96; RESP 16; RESP 20; TEMP 37.1; TEMP 37.2; O2SAT 98; O2SAT 99
== END 2024-08-16 04:39 | disposition home or self-care (01) ==
PROVIDERS: Emergency Provider Emergency Medicine; PCP Nurse Practitioner Family
DX: J10.1 Influenza due to other identified influenza virus with other respiratory manifestations (principal); R53.1 Weakness; M54.50 Low back pain, unspecified; R09.81 Nasal congestion; R06.02 Shortness of breath; R05.9 Cough, unspecified; G43.909 Migraine, unspecified, not intractable, without status migrainosus
CPT/HCPCS: 71046; 87636; 96372; 99283; J1885

== ENCOUNTER 2025-03-01 11:52 | Outpatient (CLI) | payer BC, SELFPAY ==
--- OUTSIDE RECORDS SUMMARY | 2025-03-03 12:06 | XMS_ITS | Clinical Summary ---
Author Organization [facility] Address [address] [place] [address] Care Team Providers Care Hairspring Truing Inspector Name Role Phone Miguel Arguelles MD Primary Care Provider [phone] Social History Tobacco Use Types Packs/Day Years Used Date Smoking Tobacco: Never Sex and Gender Information Value Date Recorded Sex Assigned at Not on file Legal Sex Male 8:52 PM EDT Gender Identity Not on file Sexual Orientation Not on file Last Filed Vital Signs Vital Sign Reading Time Taken Comments Blood Pressure - - Pulse - - Temperature - - Respiratory Rate - - Oxygen Saturation - - Inhaled Oxygen Concentration - - Weight 136 kg (299 lb 0.2 oz) 02/27/2014 2:04 PM EDT Height 179.1 cm (5' 10.5 ) 02/27/2014 2:04 PM ED T Body Mass Index 42.3 02/27/2014 2:04 PM EDT Plan of Treatment Not on file Insurance [employer] [facility] MEDICAID Care Teams Hairspring Truing Inspector Relationship Specialty Start Date End Date Miguel Arguelles MD [address] [place], [place] [address] PCP - General 11/30/20
--- OUTSIDE RECORDS SUMMARY | 2025-03-03 12:06 | XMS_ITS | Clinical Summary ---
Author Organization [facility] Address [address] [place] [address] Care Team Providers Care Microbiology Teacher Name Role Phone Miguel Arguelles MD Primary Care Provider + [phone] Allergies No known active allergies Medications omeprazole (priLOSEC) 20 MG capsule Take 20 mg by mouth Daily. Active ondansetron (Zofran) 4 MG tablet Take 1 tablet by mouth Every 8 (Eight) Hours As Needed for Nausea or Vomiting. 12 tablet 07/02/2021 4:25 PM EST 07/02/2021 Active docusate sodium (COLACE) 100 MG capsule Take 1 capsule by mouth 2 (Two) Times a Day. 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 24 tablet 07/02/2021 4:25 PM EST 07/02/2021 Active Social History Tobacco Use Types Packs/Day Years Used Date Smoking Tobacco: Former Cigarettes Q uit: 2018 Smokeless Tobacco: Never Alcohol Use Standard Drinks/Week Comments Yes 0 (1 standard drink = 0.6 oz pur e alcohol) occasional Abuse Screen Answer Date Recorded Unsafe at Home or Work/School Not on file Feels Threatened by Someone? Not on file 06/2023 Does Anyone Keep You from Co ntacting Others or Doint Things Outside the Home? Not on file 04/30/2023 Physical Sign of Abuse Present Not on file 1 Housing Stability Answer Date Recorded Current Living Arrangements Not on file 04/19 Potentially Unsafe Housing Conditions Not on aparna e 04/30/2023 Family and Community Support Answer Alejandro e Recorded Help with Day-to-Day Activities Not on file 04/30/2023 Lonely or Isolated Not on file 04/30/2023 Employment Answer Date Recorded Do you want help finding or keeping work or a silvina b? Not on file 04/30/2023 Disabilities Answer Date Recorded Concentrating, Remembering, or Making Decisions Difficulty Not on file 04/30/2023 Doing Errands Independently Difficulty Not on fi le 04/30/2023 Education Answer Date Recorded Help with school or training? Not on file Preferred Language Not on file 04/30/2023 Sex and Gender Information Value Date Recorded Sex Assigned at Not on file Legal Sex Male 9:25 PM EDT Gender Identity Not on file Sexual Orientation Not on file Last Filed Vital Signs Vital Sign Reading Time Taken Comments Blood Pressure 123/75 07/02/2021 5:30 PM EST Pulse 75 07/02/2021 5:30 PM EST Temperature 36.3 C (97.4 F) 07/02/2021 4:11 PM EST Respiratory Rate 18 07/02/2021 5:30 PM EST Oxygen Saturation 95% 07/02/2021 5:30 PM EST Inhaled Oxygen Concentration - - Weight 171 kg (377 lb) 07/02/2021 1:11 PM EST Height 182.9 cm (6') 07/02/2021 1:11 PM EST Body Mass Index 51.13 07/02/2021 1:11 PM EST Plan of Treatment Health Maintenance Due Date Last Done Comments TDAP/TD VACCINES (1 - Tdap) 11/11/2018 11/10/2018 ANNUAL PHYSICAL 06/28/2021 HEPATITIS C SCREENING 06/28/2021 COVID-19 Vaccine (2023-2 5 season) 2024 INFLUENZA VACCINE 04/19/2025 Pneumococcal Vaccine 0-49 Aged Out No longer eligible based on patient's age to complete this topic Insurance [facility] [place] [address] Care Teams Microbiology Teacher Relationship Specialty Start Date End Date Miguel Arguelles MD [address] [place] [address] [address] PCP - General Adolescent Medicine 07/02/21
--- OUTSIDE RECORDS SUMMARY | 2025-03-03 12:06 | XMS_ITS | Clinical Summary ---
Author Organization [facility] Address [address] [place] [id number] Phone [email or web address] Care Team Providers Care Oil Bay Technician Name Role Phone Unavailable Primary Care Provider Unavailabl e Allergies No known active allergies Medications omeprazole (PriLOSEC) [address] capsule Take 20 mg by mouth once daily as needed. Active Active Problems Problem Noted Date Diagnosed Date Heat exposure 12/15/2019 Social History Tobacco Use Types Packs/Day Years Used Date Smoking Tobacco: Every Day Smokeless Tobacco: Never Intimate Partner Violence Answer Date R ecorded Insults You Not on file 10/31/2020 Threatens You Not on file 10/31/2020 Screams at You Not on file 10/31/2020 Physically Hurt Not on file 10/31/2020 Intimate Partner Violence Score Not on file 10/31/2020 Depression Answer Date Recorded PHQ Total Score Not on file 11/15/2022 Stress Answer Date Recorded Stress in your Life Not on file 05/23/2024 Dealing with Stress 3 05/23/2024 Sex and Gender Information Value Date Recorded Sex Assigned at Not on file Legal Sex Male 12:16 PM CDT Gender Identity Not on file Sexual Orientation Not on file Last Filed Vital Signs Vital Sign Reading Time Taken Comments Blood Pressure 120/70 11/13/2021 7:45 PM EDT Pulse 101 11/13/2021 7:45 PM EDT Temperature 36.5 C (97.7 F) 11/13/2021 7:45 PM EDT Respiratory Rate 16 11/13/2021 7:24 PM EDT Oxygen Saturation 97% 11/13/2021 7:45 PM EDT Inhaled Oxygen Concentration - - Weight - - Height - - Body Mass Index - - Plan of Treatment Health Maintenance Due Date Last Done Comments Dental Cleaning/Exam 1995 HIV Screening 1995 Hepatitis C Screening 1995 Asthma Spirometry 2000 HPV Immunization (1 - Male 3 -dose series) 2010 Annual Preventive Exam 2013 Hep B Infection Screening - Triple Screen 2013 Hepatitis B Immunization (1 of 3 - 19+ 3-dose series) 2014 Pneumococcal: Ped (0 to 5 Yr s) and At-Risk Member (6 to 64 Yrs) (1 of 2 - PCV) 2014 Tetanus Diphtheria and Pertu ssis Immunization (1 - Tdap) 2014 Covid-19 Immunization (1 - 2 season) 2024 Influenza Immunization (#1) 2025 HIB Immunization Aged Out No longer e ligible based on patient's age to complete this topic Hepatitis A Immunization Aged Out No longer eligible based on patient's age to complete this topic Polio Immunization Aged Out No longer eligible based on patient's age to complete this topic Varicella Immunization Aged Out No lo nger eligible based on patient's age to complete this topic Insurance OPT OUT NO COPAY NB
--- OUTSIDE RECORDS SUMMARY | 2025-03-03 12:06 | XMS_ITS | Encounter Summary ---
Author Organization [facility] [address] [place] [address] Care Team Providers Care Supervisor Opening And Picking Name Role Phone Miguel Arguelles MD Primary Care Provider [phone] Encounter Details Date Type Department Care Team (Late st Contact Info) Description 04/18/2021 [facility] [address] [place] [address] Lemuel Etienne Superior glenoid labrum lesion of right shoulder, initial encounter (Primary Dx) Social History Tobacco Use Types Packs/Day Years Used Date Smoking Tobacco: Never Sex and Gender Information Value Date Recorded Sex Assigned at Not on file Legal Sex Male 8:52 PM EDT Gender Identity Not on file Sexual Orientation Not on file documented as of this encounter Plan of Treatment Not on file documented as of this encounter Visit Diagnoses Diagnosis Superior glenoid labrum lesion of right shoulder, initial encounter- Primary documented in this encounter Care Teams Supervisor Opening And Picking Relationship Specialty Start Date End Date Miguel Arguelles MD [address] [place] [id number] PCP - General 11/30/20 documented as of this encounter
== END 2025-03-01 23:59 | disposition home or self-care (01) ==
LOC: LAB.DROPOF 03-03 11:53
PROVIDERS: PCP Nurse Practitioner Family; Visit Provider Student in an Organized Health Care Education/Training Program
DX: J06.9 Acute upper respiratory infection, unspecified (principal)
CPT/HCPCS: 87635